=== PATIENT | male | born 1935 | race Caucasian/White ===

== ENCOUNTER 2016-02-09 18:37 | Emergency (ER) | payer OTHER ==
[~2016-02-09] VITALS: Ht 193 cm; Wt 75.6 kg
[~2016-02-09 18:37] MED LIST: ADVIN25050; CEPH500C PO; CMD1 PO; DIGO0.122 PO; LSX20 PO; METO25TA3 PO; NASONEX
[2016-02-09 18:38] VITALS: TEMP 36.8; Ht 193 cm; Wt 75.6 kg
[2016-02-09 18:52] VITALS: O2SAT 96
[2016-02-09] MEDS ORDERED: SODIUM CHLORIDE 0.9% 1000ML 1,000 ML IV STA (18:56)
--- NOTE | 2016-02-09 19:02 | EMERGENCY ROOM VISIT NOTE ---
History Report prepared by Mariangel: Virginia Salgado Under the Supervision of: Dr. Aster Foy M.D. First contact with patient: 18:44 Chief Complaint: NEURO SYMPTOMS Stated Complaint: BRAIN SURGERY 01-12-16 History of Present Illness The patient is a 80 year old male who presents to the Emergency Room with complaints of constant neurological symptoms beginning today. The patient's states that the patient is having trouble walking and is not lucid. She reports that the patient has dementia and had a brain bleed previously. She notes that he had brain surgery 1 month ago. The states that the patient thinks that he is speaking coherently but he is not. She denies any headache and vomiting. Source of History: patient Onset: today Position: other (neuro) Timing: constant Associated Symptoms: No headache, No vomiting Note: The patient's states that the patient is having trouble walking and is not lucid. Review of Systems See HPI for pertinent positives & negatives. A total of 10 systems reviewed and were otherwise negative. Past Medical & Surgical Medical Problems: (1) Alzheimer disease (2) Atrial fibrillation (3) Emphysema Family History Patient reports no known family medical history. Social History Smoking Status: Never Smoker Marital Status: Housing Status: lives with significant other Occupation Status: retired Current/Historical Medications Scheduled Calcium/Vitamin D (Os-Salvatore 500 Plus D), 1 TAB PO DAILY Citalopram Hydrobromide (Celexa), 10 MG PO DAILY Cyanocobalamin (Vitamin B-12), 100 MCG PO DAILY Digoxin (Digitek), 0.125 MG PO DAILY Docusate Sodium (Colace), 1 CAP PO BID Donepezil HCl (Aricept), 1 TAB PO DAILY Famotidine (Pepcid), 20 MG PO DAILY Ferrous Sulfate (Ferrous Sulfate), 1 TAB PO DAILY Fluticasone Prop/Salmeterol (Advair Diskus 500/50 60 Dose), 1 PUFF INH BID Furosemide (Lasix), 20 MG PO DAILY Levetiracetam (Keppra), 500 MG PO BID Lorazepam (Ativan), 0.5-1 TAB PO HS Melatonin-Pyridoxine (Melatonin), 10 MG PO HS Memantine (Namenda), 10 MG PO BID Metoprolol Succinate (Toprol Xl), 50 MG PO BID Multivitamins/Minerals (Mvi With Minerals), 1 TAB PO DAILY Potassium/Phosphorus/Sodium (Phos-Nak Powder Concentra), 1 PKT PO DAILY Simvastatin (Zocor), 20 MG PO QPM Sodium Chloride (Sodium Chloride), 1 GM PO DAILY Tiotropium [place] (Spiriva Handihaler), 1 CAP INH DAILY [Proair], 2 PUFFS INH QID Scheduled PRN Albuterol Sulf (Proventil 0.083% 2.5MG/3ML), 2.5 MG INH QID PRN for SOB/Wheezing Allergies Coded Allergies: [place] (Verified Allergy, Severe, GI SYMPTOMS, 02/09/16) Penicillins (Verified Allergy, Intermediate, RASH, 03/14/09) Uncoded Allergies: SWEET POTATOE (Adverse Reaction, Severe, GI SYMPTOMS, 02/09/16) Physical Exam Vital Signs Date Time Temp Pulse Resp B/P Pulse Ox O2 Delivery O2 Flow Rate FiO2 02/09/16 23:23 61 18 132/85 94 Room Air 02/09/16 21:53 62 16 134/82 99 02/09/16 21:16 61 20 137/82 95 Room Air 02/09/16 19:52 63 18 119/56 93 Room Air 02/09/16 18:55 67 02/09/16 18:52 96 Room Air 02/09/16 18:38 36.8 69 18 120/73 93 Room Air Physical Exam Vital signs reviewed. General: Well-appearing, elderly, pleasant and conversant, in no significant distress. HEENT: No scleral icterus, PERRLA, neck supple. Atraumatic. Cardiovascular: Regular rate and rhythm, no extra sounds. Pulmonary: Clear to auscultation bilaterally, normal work of breathing. Abdomen: Soft, nontender, nondistended, positive bowel sounds. Musculoskeletal: Atraumatic, no peripheral edema. Neurologic: Patient awake alert and oriented x 3, full strength in all 4 extremities. Cranial nerves 2 through 12 grossly intact. Follows commands, Cerebellar exam appears to be intact, pleasantly confused to current events. Skin: Warm, dry, no rash Medical Decision & Procedures ER Provider Diagnostic Interpretation: CT results as stated below per my review and radiologist interpretation: HEAD CT NONCONTRAST Findings: Interval right craniotomy. Craniotomy flap is in good position. There are persistent bilateral subdural hematomas. On the right maximum thickness is 1.6 cm improved from 2.1 cm. On the left maximum thickness is 4 mm improved from 5 mm. Midline shift remains to the left but it has improved from the prior study is currently 9 mm. This is improved from 1.3 cm. There is slightly heterogeneous density characteristics of the right subdural hematoma consistent with normal evolution/change as well as postoperative change. Impression: 1. Interval right-sided craniotomy with partial decompression of the right subdural hematoma. 2. Significant postprocedural residual as discussed above, with midline shift improved from the prior exam as well. 3. No evidence for an acute parenchymal hemorrhagic component. Electronically signed by: Dominik Howard M.D. 02/09/2016 8:21 PM Laboratory Results 02/09/16 19:35 Red Blood Count 3.49, Mean Corpuscular Volume 96.6, Mean Corpuscular Hemoglobin 31.8, Mean Corpuscular Hemoglobin Concent 32.9, Mean Platelet Volume 9.4, Neutrophils (%) (Auto) 68.8, Lymphocytes (%) (Auto) 19.3, Monocytes (%) (Auto) 9.6, Eosinophils (%) (Auto) 1.6, Basophils (%) (Auto) 0.5, Neutrophils # (Auto) 5.89, Lymphocytes # (Auto) 1.65, Monocytes # (Auto) 0.82, Eosinophils # (Auto) 0.14, Basophils # (Auto) 0.04 02/09/16 19:35 Test 02/09/16 19:35 02/09/16 19:44 02/09/16 20:41 White Blood Count 8.56 K/uL (4.8-10.8) Red Blood Count 3.49 M/uL (4.7-6.1) Hemoglobin 11.1 g/dL (14.0-18.0) Hematocrit 33.7 % (42-52) Mean Corpuscular Volume 96.6 fL (80-100) Mean Corpuscular Hemoglobin 31.8 pg (25-34) Mean Corpuscular Hemoglobin Concent 32.9 g/dl (32-36) Platelet Count 304 K/uL (130-400) Mean Platelet Volume 9.4 fL (7.4-10.4) Neutrophils (%) (Auto) 68.8 % Lymphocytes (%) (Auto) 19.3 % Monocytes (%) (Auto) 9.6 % Eosinophils (%) (Auto) 1.6 % Basophils (%) (Auto) 0.5 % Neutrophils # (Auto) 5.89 K/uL (1.4-6.5) Lymphocytes # (Auto) 1.65 K/uL (1.2-3.4) Monocytes # (Auto) 0.82 K/uL (0.11-0.59) Eosinophils # (Auto) 0.14 K/uL (0-0.5) Basophils # (Auto) 0.04 K/uL (0-0.2) RDW Standard Deviation 50.1 fL (36.4-46.3) RDW Coefficient of Variation 14.1 % (11.5-14.5) Immature Granulocyte % (Auto) 0.2 % Immature Granulocyte # (Auto) 0.02 K/uL (0.00-0.02) Anion Gap 6.0 mmol/L (3-11) Est Creatinine Clear Calc Drug Dose 58.2 ml/min Estimated GFR () 73.6 Estimated GFR (Non- 63.5 BUN/Creatinine Ratio 15.0 (10-20) Calcium Level 9.4 mg/dl (8.5-10.1) Magnesium Level 2.4 mg/dl (1.8-2.4) Total Bilirubin 0.3 mg/dl (0.2-1) Direct Bilirubin 0.1 mg/dl (0-0.2) Aspartate Amino Transf (AST/SGOT) 9 U/L (15-37) Alanine Aminotransferase (ALT/SGPT) 17 U/L (12-78) Alkaline Phosphatase 101 U/L (45-117) Total Protein 7.1 gm/dl (6.4-8.2) Albumin 3.2 gm/dl (3.4-5.0) Bedside Troponin I 0.010 ng/ml (0-0.045) Prothrombin Time 11.4 SECONDS (9.0-12.0) Prothromb Time International Ratio 1.1 (0.9-1.1) Activated Partial Thromboplast Time 29.3 SECONDS (21.0-31.0) Partial Thromboplastin Ratio 1.1 Laboratory results per my review. Medications Administered Medications (Trade) Dose Ordered Sig/Marcos Route Start Time Stop Time Status Last Admin Dose Admin Sodium Chloride (Nss 1000ml) 1,000 ml @ 125 mls/hr Q8H STAT IV 02/09/16 18:56 02/10/16 00:08 DC 02/09/16 19:39 125 MLS/HR ECG Indication: other (AMS) Rate (beats per minute): 61 Rhythm: sinus rhythm Findings: 1st degree AV block, LBBB, no acute ischemic change, no ectopy Comparison ECG Date: 12-JAN-2016 Change: no significant change ED Course 1847: Past medical records reviewed. The patient was evaluated in room B7. A complete history and physical examination was performed. 1855: Sodium Chloride 1000 ml @ 125 mls/hr IV. 2101: I reviewed the patient's case with Dr. Granda of [place]. The the patient will be transferred and Dr. Granda will evaluate the patient for further management. 2214: The patient is not able to be transferred by flight due to the weather. Medical Decision Differential diagnosis: Etiologies such as metabolic, infection, hypoglycemia, electrolyte abnormalities , cardiac sources, intracerebral event, toxicologic, neurologic, as well as others were entertained. This patient was evaluated and appeared to be in no significant distress. IV access was obtained and laboratory work was drawn. The patient was placed on the personnel monitor. Since neurologic exam is consistent with his dementia. Review of old records indicates a recent bilateral subdural hemorrhage. Patient 's surgery was performed at [facility]. A CT scan of the head performed tonight reveals chronic subdural with midline shift. There does not appear to be acute bleeding. I discussed the case with neurosurgery, Dr. Granda at [facility]. She feels that this is likely a re-collection of fluid since the surgery. She has accepted the patient in transfer. ALS transport has been arranged, there is a delay in obtaining an ambulance however the helicopter is not flying secondary to weather. Patient's family has been informed of the delay in transfer, the patient is currently resting comfortably in bed. Consults Time Called: 2047 Consulting Physician: Dr. Granda - Marky Returned Call: 2101 I reviewed the patient's case with Dr. Granda of [place]. The the patient will be transferred and Dr. Granda will evaluate the patient for further management. Impression Primary Impression: Chronic subdural hematoma Additional Impressions: Midline shift of brain, Altered mental status Scribe Attestation The scribe's documentation has been prepared under my direction and personally reviewed by me in its entirety. I confirm that the note above accurately reflects all work, treatment, procedures, and medical decision making performed by me. Departure Information Dispostion Transfer Acute Care Facility Referrals Serena Soni M.D. (PCP) Patient Instructions A Signature Page, My [facility]
[2016-02-09] MEDS ORDERED: DONE5TAB9 PO (19:07)
[2016-02-09] MEDS ORDERED: FAMO20TA11 PO (19:07)
[2016-02-09] MEDS ORDERED: ACET325T96 PO (19:07)
[2016-02-09] MEDS ORDERED: CITA10TA8 PO (19:07)
[2016-02-09] MEDS ORDERED: LORA-741 PO (19:07)
[2016-02-09] MEDS ORDERED: NMN10 PO (19:07)
[2016-02-09] MEDS ORDERED: [UNRECOGNIZED DRUG - CODE] INJ (19:07)
[2016-02-09] MEDS ORDERED: DIGO30TA PO (19:07)
[2016-02-09] MEDS ORDERED: NTRP PO (19:07)
[2016-02-09] MEDS ORDERED: PROAIR INH (19:07)
[2016-02-09] MEDS ORDERED: SDMC1 PO (19:07)
[2016-02-09] MEDS ORDERED: LEVE500T13 PO (19:07)
[2016-02-09] MEDS ORDERED: FURO-85 PO (19:07)
[2016-02-09] MEDS ORDERED: ADVIN50/60 INH (19:07)
[2016-02-09] MEDS ORDERED: SPRIN/30 INH (19:07)
[2016-02-09] MEDS ORDERED: DOCU-94 PO (19:07)
[2016-02-09] MEDS ORDERED: ALBINS/ INH (19:07)
[2016-02-09] MEDS ORDERED: CYAN100T PO (19:12)
[2016-02-09] MEDS ORDERED: METO-217 PO (19:12)
[2016-02-09] MEDS ORDERED: CALC500C70 PO (19:12)
[2016-02-09] MEDS ORDERED: FERR325T5 PO (19:12)
[2016-02-09] MEDS ORDERED: SIMV20TA2 PO (19:12)
[2016-02-09] MEDS ORDERED: MULT-513 PO (19:12)
[2016-02-09] MEDS ORDERED: MELA3TAB12 PO (19:35)
[2016-02-09 19:54] LABS: BASO % 0.5 %; BASO ABS # 0.04 K/uL (0-0.2); COMPLETE YES; EOS % 1.6 %; HEMATOCRIT 33.7 % (42-52); IG% 0.2 %; LYMPH % 19.3 %; LYMPH ABS # 1.65 K/uL (1.2-3.4); MEAN CELL VOLUME 96.6 fL (80-100); MEAN CORPUSCULAR HEMOGLOBIN 31.8 pg (25-34); MEAN CORPUSCULAR HGB CONC 32.9 g/dl (32-36); MEAN PLATELET VOLUME 9.4 fL (7.4-10.4); MONO % 9.6 %; NEUT % 68.8 %; PLATELET COUNT 304 K/uL (130-400); RED BLOOD COUNT 3.49 M/uL (4.7-6.1); WHITE BLOOD COUNT 8.56 K/uL (4.8-10.8)
[2016-02-09 20:12] LABS: CALCIUM 9.4 mg/dl (8.5-10.1); CREATININE 1.1 mg/dl (0.60-1.40); MAGNESIUM 2.4 mg/dl (1.8-2.4); POTASSIUM 4.4 mmol/L (3.5-5.1)
--- NOTE | 2016-02-09 20:23 | DIAGNOSTIC IMAGING REPORT ---
HEAD CT NONCONTRAST CT DOSE: 786.26 mGy.cm HISTORY: Change in mental status AMS, recent ICH s/p decompression TECHNIQUE: Multiaxial CT images of the head were performed without the use of intravenous contrast. Comparison: 01/12/2016 Findings: Interval right craniotomy. Craniotomy flap is in good position. There are persistent bilateral subdural hematomas. On the right maximum thickness is 1.6 cm improved from 2.1 cm. On the left maximum thickness is 4 mm improved from 5 mm. Midline shift remains to the left but it has improved from the prior study is currently 9 mm. This is improved from 1.3 cm. There is slightly heterogeneous density characteristics of the right subdural hematoma consistent with normal evolution/change as well as postoperative change. Impression: 1. Interval right-sided craniotomy with partial decompression of the right subdural hematoma. 2. Significant postprocedural residual as discussed above, with midline shift improved from the prior exam as well. 3. No evidence for an acute parenchymal hemorrhagic component. Electronically signed by: Dominik Howard M.D. 02/09/2016 8:21 PM
[2016-02-09 21:10] LABS: INR 1.1 (0.9-1.1); PARTIAL THROMBOPLASTIN RATIO 1.1; PROTHROMBIN TIME (PATIENT) 11.4 SECONDS (9.0-12.0)
[2016-02-09 23:23] VITALS: BP 132/85; PULSE 61; O2SAT 94
== END 2016-02-09 23:51 | disposition short-term general hospital (02) ==
LOC: C.EDB 18:37
DX: I62.03 Nontraumatic chronic subdural hemorrhage (principal); G30.9 Alzheimer's disease, unspecified; I48.91 Unspecified atrial fibrillation; Z79.899 Other long term (current) drug therapy

== ENCOUNTER 2016-06-07 13:11 | Emergency (ER) | payer OTHER ==
[~2016-06-07] VITALS: Ht 193 cm; Wt 70.0 kg
[~2016-06-07 13:11] MED LIST changes: -ADVIN25050; +ADVIN50/60 INH; +ALBINS/ INH; +CALC500C70 PO; -CEPH500C PO; +CITA10TA8 PO; -CMD1 PO; +CYAN100T PO; -DIGO0.122 PO; +DIGO30TA PO; +DOCU-94 PO; +DONE5TAB9 PO; +FAMO20TA11 PO; +FERR325T5 PO; +FURO-85 PO; +LEVE500T13 PO; +LORA-741 PO; -LSX20 PO; +MELA3TAB12 PO; +METO-217 PO; -METO25TA3 PO; +MULT-513 PO; -NASONEX; +NMN10 PO; +NTRP PO; +PROAIR INH; +SDMC1 PO; +SIMV20TA2 PO; +SPRIN/30 INH
[2016-06-07 13:18] VITALS: TEMP 36.5; Ht 193 cm; Wt 70.0 kg
[2016-06-07] MEDS ORDERED: SODIUM CHLORIDE 0.9% 1000ML 1,000 ML IV STA (13:26)
--- NOTE | 2016-06-07 13:58 | DIAGNOSTIC IMAGING REPORT ---
CHEST ONE VIEW PORTABLE CLINICAL HISTORY: Altered mental status. Weakness. COMPARISON STUDY: 01/12/2016 FINDINGS: The chest has an emphysematous configuration. There is no focal pulmonary consolidation. There is a trace right pleural effusion. There is no failure.[ There are old rib deformities. IMPRESSION: Emphysema. Trace right pleural effusion. Electronically signed by: Ziggy Giron M.D. 06/07/2016 1:57 PM Dictated Date/Time: 06/07/2016 1:56 PM
[2016-06-07 14:03] LABS: BASO % 0.6 %; BASO ABS # 0.04 K/uL (0-0.2); COMPLETE YES; EOS % 3.1 %; HEMATOCRIT 45.6 % (42-52); IG% 0.2 %; LYMPH ABS # 1.43 K/uL (1.2-3.4); MEAN CORPUSCULAR HEMOGLOBIN 30.1 pg (25-34); MEAN PLATELET VOLUME 9.7 fL (7.4-10.4); MONO % 10.6 %; NEUT % 63.5 %; PLATELET COUNT 212 K/uL (130-400); RED BLOOD COUNT 4.85 M/uL (4.7-6.1); WHITE BLOOD COUNT 6.49 K/uL (4.8-10.8)
[2016-06-07 14:18] LABS: PROTHROMBIN TIME (PATIENT) 10.9 SECONDS (9.0-12.0)
--- NOTE | 2016-06-07 14:22 | DIAGNOSTIC IMAGING REPORT ---
CT HEAD WITHOUT CONTRAST (CT) CLINICAL HISTORY: Mental status change. Head trauma. Dizziness. History of prior brain surgery. COMPARISON STUDY: February 09, 2016 TECHNIQUE: Axial CT of the brain is performed from the vertex to the skull base. IV contrast was not administered for this examination. CT DOSE: 788.63 mGycm FINDINGS: There is been interval decrease in the size of the bilateral subdural fluid collections. These currently measure 5 mm in thickness and the right and 7 mm in thickness on the left. No acute hemorrhage is visualized. There is no CT evidence of acute cortical infarction. There is no midline shift. There are patchy white matter hypodensities likely on a small vessel basis. 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 There is subtle cortical hypodensities in the right frontal lobe, also likely secondary to an infarct. This was not visualized the prior study. There is no evidence of pathologic ventricular dilatation. There is trace fluid in the right mastoid. There are postsurgical changes of a right frontal craniotomy. IMPRESSION: 1. Postsurgical changes are prior right frontal craniotomy 2. Significant interval decrease in the size the bilateral subdural fluid collections 3. Subtle cortical hypodensities in the right frontal lobe, likely secondary to an interval infarct 4. No acute hemorrhage. No significant mass effect. Electronically signed by: Ziggy Giron M.D. 06/07/2016 2:21 PM Dictated Date/Time: 06/07/2016 2:17 PM
[2016-06-07 14:27] LABS: ALT/SGPT 19 U/L (12-78); AST/SGOT 12 U/L (15-37); BLOOD UREA NITROGEN 29 mg/dl (7-18); BUN/CREATININE RATIO 15.1 (10-20); CARBON DIOXIDE 32 mmol/L (21-32); CHLORIDE 105 mmol/L (98-107); GLUCOSE 105 mg/dl (70-99); MAGNESIUM 2.4 mg/dl (1.8-2.4); POTASSIUM 4.1 mmol/L (3.5-5.1); SODIUM 143 mmol/L (136-145)
[2016-06-07 14:32] VITALS: O2SAT 98
[2016-06-07 14:36] LABS: ALKALINE PHOSPHATASE 76 U/L (45-117); CKMB/CK RATIO 0.7 (0-3.0); THYROID STIMULATING HORMONE 0.581 uIu/ml (0.300-4.500)
[2016-06-07] MEDS ORDERED: LISI20TA3 PO (14:43)
[2016-06-07] MEDS ORDERED: DONE10TA12 PO (14:43)
[2016-06-07] MEDS ORDERED: LEVE750T PO (14:43)
[2016-06-07] MEDS ORDERED: ALBU18002 INH (14:43)
[2016-06-07] MEDS ORDERED: ASCA500 PO (14:44)
[2016-06-07] MEDS ORDERED: VITA1TAB12 PO (14:44)
[2016-06-07] MEDS ORDERED: CHOL100010 PO (14:44)
--- NOTE | 2016-06-07 14:50 | EMERGENCY ROOM VISIT NOTE ---
History Report prepared by Mariangel: Miguelito Zafar Under the Supervision of: Dr. Guillermo Ruth D.O. First contact with patient: 13:22 Chief Complaint: SHORTNESS OF BREATH Stated Complaint: SOB, FALL, DIZZINESS, HX OF BRAIN BLEED, BRAIN SX History of Present Illness The patient is a 80 year old male who presents to the Emergency Room with complaints of persistent shortness of breath starting about 48 hours ago. He has worsening difficulty breathing with exertion. He has a history of COPD. He has been having an upper respiratory infection for the past 3 days. He has been taking Augmentin with some relief. The patient fell outside on his way to the Emergency Room due to dizziness. The patient had an unwitnessed fall two days ago. He had a brain bleed last year after a fall. He has had a loss of appetite in the past month. His weight has reduced from 190 pounds to 153 pounds. He has been taking Ensure. The patient does not currently smoke cigarettes. He currently denies any pain. He denies headache, chest pain, nausea, vomiting, abdominal pain, or any other complaints. The patient has a history of Alzheimer's disease. Additional history is obtained as per . Source of History: patient, spouse/significant other Onset: about 48 hours ago Position: other (global) Symptom Intensity: No pain currently Quality: other (shortness of breath) Timing: other (persistent) Associated Symptoms: No abdominal pain, No chest pain, No headache, No nausea, No vomiting Review of Systems See HPI for pertinent positives & negatives. A total of 10 systems reviewed and were otherwise negative. Past Medical & Surgical Medical Problems: (1) Alzheimer disease (2) Atrial fibrillation (3) Emphysema Family History Patient reports no known family medical history. Social History Smoking Status: Former Smoker Marital Status: Housing Status: lives with significant other Occupation Status: retired Current/Historical Medications Scheduled Albuterol Sulfate (Proair Respiclick), 2 PUFFS INH QID Ascorbic Acid (Vitamin C), 1 TAB PO DAILY Calcium/Vitamin D (Os-Salvatore 500 Plus D), 1 TAB PO DAILY Cholecalciferol (Vitamin D), 1 TAB PO DAILY Citalopram Hydrobromide (Celexa), 10 MG PO DAILY Cyanocobalamin (Vitamin B-12), 100 MCG PO DAILY Digoxin (Digitek), 0.125 MG PO DAILY Donepezil Hydrochloride (Aricept), 10 MG PO DAILY Ferrous Sulfate (Ferrous Sulfate), 1 TAB PO DAILY Furosemide (Lasix), 20 MG PO DAILY Levetiracetam (Keppra), 750 MG PO DAILY Lisinopril (Prinivil), 40 MG PO DAILY Memantine (Namenda), 10 MG PO BID Metoprolol Succinate (Toprol Xl), 50 MG PO BID Multivitamins/Minerals (Mvi With Minerals), 1 TAB PO DAILY Potassium/Phosphorus/Sodium (Phos-Nak Powder Concentra), 1 PKT PO DAILY Simvastatin (Zocor), 20 MG PO QPM Tiotropium [place] (Spiriva Handihaler), 1 CAP INH DAILY Vitamin E (Vitamin E), 1 TAB PO DAILY [Proair], 2 PUFFS INH QID Allergies Coded Allergies: [place] (Verified Allergy, Severe, GI SYMPTOMS, 02/09/16) Penicillins (Verified Allergy, Intermediate, RASH, 03/14/09) Uncoded Allergies: SWEET POTATOE (Adverse Reaction, Severe, GI SYMPTOMS, 02/09/16) Physical Exam Vital Signs Date Time Temp Pulse Resp B/P Pulse Ox O2 Delivery O2 Flow Rate FiO2 06/07/16 15:09 57 16 102/57 97 06/07/16 15:07 78 16 132/98 99 06/07/16 14:32 98 Nasal Cannula 2.0 06/07/16 14:30 62 16 80/51 98 Nasal Cannula 2.0 06/07/16 13:42 98 Room Air 06/07/16 13:32 77 06/07/16 13:18 36.5 80 18 70/50 91 Room Air Physical Exam CONSTITUTIONAL/VITAL SIGNS: Reviewed / noted above. GENERAL: Non-toxic in appearance. INTEGUMENTARY: Warm, dry, and [place]. There are some old abrasions on the face. HEAD: Normocephalic. EYES: without scleral icterus or trauma. ENT/OROPHARYNX: clear and moist. LYMPHADENOPATHY/NECK: Is supple without lymphadenopathy or meningismus. RESPIRATORY: Lungs clear and equal. CARDIOVASCULAR: Regular rate and rhythm. GI/ABDOMEN: Soft and nontender. No organomegaly or pulsatile mass. No rebound or guarding. Normal bowel sounds. EXTREMITIES: Warm and well perfused. BACK: No CVA tenderness. NEUROLOGICAL: Intact without focal deficits. PSYCHIATRIC: normal affect. MUSCULOSKELETAL: Normally developed with good muscle tone. Medical Decision & Procedures ER Provider Diagnostic Interpretation: X ray results and stated below per my interpretation and radiology interpretation. CHEST ONE VIEW PORTABLE CLINICAL HISTORY: Altered mental status. Weakness. COMPARISON STUDY: 01/12/2016 FINDINGS: The chest has an emphysematous configuration. There is no focal pulmonary consolidation. There is a trace right pleural effusion. There is no failure.[ There are old rib deformities. IMPRESSION: Emphysema. Trace right pleural effusion. Electronically signed by: Ziggy Giron M.D. 06/07/2016 1:57 PM Dictated Date/Time: 06/07/2016 1:[address] results as stated below per my review and radiologist interpretation: CT HEAD WITHOUT CONTRAST (CT) CLINICAL HISTORY: Mental status change. Head trauma. Dizziness. History of prior brain surgery. COMPARISON STUDY: February 09, 2016 TECHNIQUE: Axial CT of the brain is performed from the vertex to the skull base. IV contrast was not administered for this examination. CT DOSE: 788.63 mGycm FINDINGS: There is been interval decrease in the size of the bilateral subdural fluid collections. These currently measure 5 mm in thickness and the right and 7 mm in thickness on the left. No acute hemorrhage is visualized. There is no CT evidence of acute cortical infarction. There is no midline shift. There are patchy white matter hypodensities likely on a small vessel basis. 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 There is subtle cortical hypodensities in the right frontal lobe, also likely secondary to an infarct. This was not visualized the prior study. There is no evidence of pathologic ventricular dilatation. There is trace fluid in the right mastoid. There are postsurgical changes of a right frontal craniotomy. IMPRESSION: 1. Postsurgical changes are prior right frontal craniotomy 2. Significant interval decrease in the size the bilateral subdural fluid collections 3. Subtle cortical hypodensities in the right frontal lobe, likely secondary to an interval infarct 4. No acute hemorrhage. No significant mass effect. Electronically signed by: Ziggy Giron M.D. 06/07/2016 2:21 PM Dictated Date/Time: 06/07/2016 2:17 PM Laboratory Results 06/07/16 13:50 Red Blood Count 4.85, Mean Corpuscular Volume 94.0, Mean Corpuscular Hemoglobin 30.1, Mean Corpuscular Hemoglobin Concent 32.0, Mean Platelet Volume 9.7, Neutrophils (%) (Auto) 63.5, Lymphocytes (%) (Auto) 22.0, Monocytes (%) (Auto) 10.6, Eosinophils (%) (Auto) 3.1, Basophils (%) (Auto) 0.6, Neutrophils # (Auto ) 4.12, Lymphocytes # (Auto) 1.43, Monocytes # (Auto) 0.69, Eosinophils # (Auto ) 0.20, Basophils # (Auto) 0.04 06/07/16 13:50 Test 06/07/16 13:50 06/07/16 14:00 White Blood Count 6.49 K/uL (4.8-10.8) Red Blood Count 4.85 M/uL (4.7-6.1) Hemoglobin 14.6 g/dL (14.0-18.0) Hematocrit 45.6 % (42-52) Mean Corpuscular Volume 94.0 fL (80-100) Mean Corpuscular Hemoglobin 30.1 pg (25-34) Mean Corpuscular Hemoglobin Concent 32.0 g/dl (32-36) Platelet Count 212 K/uL (130-400) Mean Platelet Volume 9.7 fL (7.4-10.4) Neutrophils (%) (Auto) 63.5 % Lymphocytes (%) (Auto) 22.0 % Monocytes (%) (Auto) 10.6 % Eosinophils (%) (Auto) 3.1 % Basophils (%) (Auto) 0.6 % Neutrophils # (Auto) 4.12 K/uL (1.4-6.5) Lymphocytes # (Auto) 1.43 K/uL (1.2-3.4) Monocytes # (Auto) 0.69 K/uL (0.11-0.59) Eosinophils # (Auto) 0.20 K/uL (0-0.5) Basophils # (Auto) 0.04 K/uL (0-0.2) RDW Standard Deviation 50.2 fL (36.4-46.3) RDW Coefficient of Variation 14.7 % (11.5-14.5) Immature Granulocyte % (Auto) 0.2 % Immature Granulocyte # (Auto) 0.01 K/uL (0.00-0.02) Prothrombin Time 10.9 SECONDS (9.0-12.0) Prothromb Time International Ratio 1.0 (0.9-1.1) Activated Partial Thromboplast Time 26.9 SECONDS (21.0-31.0) Partial Thromboplastin Ratio 1.0 Anion Gap 6.0 mmol/L (3-11) Est Creatinine Clear Calc Drug Dose 31.2 ml/min Estimated GFR () 38.0 Estimated GFR (Non- 32.8 BUN/Creatinine Ratio 15.1 (10-20) Calcium Level 10.0 mg/dl (8.5-10.1) Magnesium Level 2.4 mg/dl (1.8-2.4) Total Bilirubin 0.6 mg/dl (0.2-1) Direct Bilirubin 0.2 mg/dl (0-0.2) Aspartate Amino Transf (AST/SGOT) 12 U/L (15-37) Alanine Aminotransferase (ALT/SGPT) 19 U/L (12-78) Alkaline Phosphatase 76 U/L (45-117) Total Creatine Kinase 83 U/L (39-308) Creatine Kinase MB 0.6 ng/ml (0.5-3.6) Creatine Kinase MB Ratio 0.7 (0-3.0) Troponin I < 0.015 ng/ml (0-0.045) Total Protein 7.3 gm/dl (6.4-8.2) Albumin 3.7 gm/dl (3.4-5.0) Lipase 108 U/L (73-393) Thyroid Stimulating Hormone (TSH) 0.581 uIu/ml (0.300-4.500) Laboratory results as stated above per my review. Medications Administered Medications (Trade) Dose Ordered Sig/Marcos Route Start Time Stop Time Status Last Admin Dose Admin Sodium Chloride (Nss 1000ml) 1,000 ml @ 999 mls/hr Q1H1M STAT IV 06/07/16 13:26 06/07/16 14:26 DC 06/07/16 14:03 999 MLS/HR ECG Indication: SOB/dyspnea Rate (beats per minute): 64 Rhythm: atrial flutter Findings: LBBB, no acute ischemic change, no ectopy Comparison ECG Date: February 09, 2016 Change: Atrial flutter is new and left bundle branch block is old when compared to February 09, 2016. ED Course 1322: Previous medical records were reviewed. The patient was evaluated in room B07. A complete history and physical examination was performed. 1326: Sodium Chloride 1000 ml @ 999 mls/hr IV 1453: On reevaluation, the patient is resting comfortably. I discussed the results and findings with the patient and his family. They verbalized agreement of the treatment plan. The patient was discharged home. Medical Decision the differential was considered includes acute myocardial infarction, acute coronary syndrome, myocarditis, pericarditis, pericardial effusions /tamponad, esophageal perforation, pulmonary embolism, pneumonia, pneumothorax, cardiomyopathy, congestive heart, anemia , COPD/asthma exacerbation. This is a 80-year-old male who presents to the ED with a chief complaint of generalized weakness and a fall this morning. The patient is also had some ongoing weight loss due to decrease in appetite. The patient fell several days ago striking his face on the ground. He has abrasions on his face. The reports a history of intracranial bleed when he was on Coumadin. She was concerned about this. The patient has no specific complaints. He denies any chest pains, shortness of breath or fevers. His physical exam was relatively unremarkable. His blood pressure was initially 70/50. Saturations are 91% on room air. The patient has a twelve-lead EKG that reveals atrial flutter with a variable conduction a controlled ventricular rate. The patient does have a history of intermittent atrial fibrillation. He is currently not on anticoagulation due to previous intrarenal hemorrhage. CT scan of the brain did not show any acute process. Chest x-ray was negative for acute disease. CBC is normal. BUN is 29 and creatinine is 1.9. Stitches normal. Metabolic panel was normal. Troponin is negative. Patient was treated with 1 L normal saline IV. He remains asymptomatic. The patient's blood pressure did improve. The states that his blood pressure normally runs about 100-115 systolic. Last blood pressure was 102 systolic. The patient and his would like to go home. They were discharged, per her wishes. The will try to increase the patients daily fluid intake and nutrition. Impression Primary Impression: Dehydration Additional Impressions: Acute renal insufficiency Poor nutrition Scribe Attestation The scribe's documentation has been prepared under my direction and personally reviewed by me in its entirety. I confirm that the note above accurately reflects all work, treatment, procedures, and medical decision making performed by me. Departure Information Dispostion Home / Self-Care Referrals Serena Soni M.D. (PCP) Forms HOME CARE DOCUMENTATION FORM, IMPORTANT VISIT INFORMATION Patient Instructions My [facility] Additional Instructions Increase daily fluid intake and nutrition. Use boost or ensure for additional supplementation for meals. Follow-up with your doctor in 1-2 days. Return for any concerns or worsening. Problem Qualifiers
[2016-06-07 15:02] LABS: URINE APPEARANCE CLOUDY (CLEAR); URINE COLOR DK YELLOW; URINE EPITHELIAL CELL AUTO >30 /lpf (0-5); URINE NITRITE NEG (NEG); URINE SPECIFIC GRAVITY 1.022 (1.000-1.030); UROBILINOGEN NEG (NEG); ZZUR CULT IF INDIC CLEAN CATCH NO
[2016-06-07 15:09] VITALS: BP 102/57; PULSE 57; O2SAT 97
[2016-06-07 15:17] LABS: MANUAL MICROSCOPIC REQUIRED? NO; REVIEW REQ? YES; URINE BILIRUBIN NEG (NEG)
== END 2016-06-07 15:20 | disposition home or self-care (01) ==
LOC: C.EDB 13:13
DX: E86.0 Dehydration (principal); N28.9 Disorder of kidney and ureter, unspecified; E46 Unspecified protein-calorie malnutrition; I48.91 Unspecified atrial fibrillation; G30.9 Alzheimer's disease, unspecified; J43.9 Emphysema, unspecified; Z79.899 Other long term (current) drug therapy; Z88.0 Allergy status to penicillin; Z91.018 Allergy to other foods

== ENCOUNTER → 2016-07-09 | Outpatient (CLI) | payer OTHER ==
[~2016-07-09] MED LIST changes: -ADVIN50/60 INH; +ALBU18002 INH; +ASCA500 PO; +ASPCH81X PO; +CHOL100010 PO; -DOCU-94 PO; +DONE10TA12 PO; -DONE5TAB9 PO; -FAMO20TA11 PO; -LEVE500T13 PO; +LEVE750T PO; +LISI20TA3 PO; -MELA3TAB12 PO; +MIRT15TA2 PO; -SDMC1 PO; +TRAZ50TA35 PO; +VITA1TAB12 PO
--- NOTE | 2016-07-10 14:00 | DIAGNOSTIC IMAGING REPORT ---
CT ABD/PELVIS ORAL CONT ONLY CLINICAL HISTORY: Weight loss, fatigue and weakness. TECHNIQUE: Axial images of the abdomen and pelvis were obtained without IV contrast. Oral contrast was administered. COMPARISON STUDY: PET/CT November 01, 2007. FINDINGS: The chest will be reported separately. There is mild elevation of the right hemidiaphragm. Evaluation of the abdomen and pelvis is suboptimal on this unenhanced exam. Unenhanced images of the liver, spleen, adrenal glands, kidneys and pancreas are unremarkable. No gallstones within the gallbladder. There is no peripancreatic or pericholecystic infiltration. There is no abdominal or pelvic lymphadenopathy. There is colonic diverticulosis without evidence for acute diverticulitis. Mild bladder wall thickening is accentuated by underdistention. No suspicious skeletal lesions are identified. There is extensive atherosclerotic plaque of the abdominal aorta and the bilateral iliac arteries. IMPRESSION: 1. No acute process within the abdomen or pelvis on unenhanced exam. 2. No abdominal or pelvic lymphadenopathy. 3. Cholelithiasis. 4. Colonic diverticulosis without evidence for acute diverticulitis. Electronically signed by: Joon Rollins M.D. 07/10/2016 1:59 PM Dictated Date/Time: 07/09/2016 3:24 PM
--- NOTE | 2016-07-10 14:00 | DIAGNOSTIC IMAGING REPORT ---
CT OF THE CHEST WITHOUT IV CONTRAST CLINICAL HISTORY: Weight loss, weakness and fatigue. COMPARISON STUDY: Chest radiograph June 07, 2016 and PET/CT November 01, 2007. CT DOSE: 544.81 mGy.cm TECHNIQUE: Axial images of the chest were obtained without IV contrast. Images were reviewed in the axial, sagittal, and coronal planes. IV contrast was not administered for this examination. FINDINGS: No enlarged axillary, mediastinal or hilar lymph nodes are present. The size of the heart is mildly enlarged. This extensive coronary artery calcification. Central airways are patent. Severe emphysema is noted. There is a 2 cm x 1 cm irregular subpleural opacity within the left upper lobe shown on image 61 of 376. This was not evident on PET/CT of November 01, 2007. Additional biapical opacities suggest scarring. There is a 1.6 x 0.9 cm right lower lobe irregular opacity shown on image 239. This was present on prior PET. There is no consolidation to suggest pneumonia. Bony thorax is unremarkable. Abdomen and pelvis will be reported separately. IMPRESSION: 1. Severe emphysema. 2. 2.1 x 1 cm irregular subpleural opacity within the left upper lobe. Scarring is favored although malignancy could appear similar. A PET CT may be of benefit in further characterization. Alternatively, a follow-up chest CT could be obtained in 6 months. 3. Additional subpleural opacities favor scarring. 4. No thoracic lymphadenopathy. Electronically signed by: Joon Rollins M.D. 07/10/2016 1:59 PM Dictated Date/Time: 07/09/2016 2:54 PM
== END | disposition home or self-care (01) ==
LOC: C.CTS 13:35
PROVIDERS: ATTEND Internal Medicine
DX: R63.4 Abnormal weight loss (principal); J43.9 Emphysema, unspecified; R91.8 Other nonspecific abnormal finding of lung field; K57.90 Diverticulosis of intestine, part unspecified, without perforation or abscess without bleeding; E23.7 Disorder of pituitary gland, unspecified; R53.83 Other fatigue; R53.1 Weakness; K80.20 Calculus of gallbladder without cholecystitis without obstruction

== ENCOUNTER → 2016-08-02 | Outpatient (CLI) | payer OTHER ==
--- NOTE | 2016-08-03 10:05 | DIAGNOSTIC IMAGING REPORT ---
PET/CT CLINICAL HISTORY: Solitary pulmonary nodule. TECHNIQUE: A PET/CT was performed from the skull base through the upper thighs following intravenous injection of 14.39 mCi of F 18 FDG IV. The injection was performed at 10:26 AM on August 02, 2016 and imaging began at 11:23 AM on August 02, 2016. Unenhanced CT was performed for attenuation correction purposes and anatomic localization. COMPARISON STUDY: CT of the chest, abdomen and pelvis July 09, 2016. FINDINGS: Head and neck: No suspicious FDG uptake is identified within the neck. There is no cervical lymphadenopathy. Chest: Moderate to severe emphysema is noted with upper lobe predominance. The 2 cm irregular linear density within the posterior segment of the left upper lobe is similar to CT of July 09, 2016. This was not evident on PET/CT of April 02, 2007. This demonstrates minimal FDG uptake within SUV max of 1.5. Additional nodular biapical opacities favor scarring. There is no thoracic lymphadenopathy. No additional sites of abnormal FDG uptake are identified within the chest. Abdomen and Pelvis: No suspicious uptake within the abdomen or pelvis is noted. There is no abdominal or pelvic lymphadenopathy. This client diverticulosis without evidence for acute diverticulitis. There is extensive atherosclerotic plaque. There is a gallstone within the gallbladder. Musculoskeletal: No suspicious skeletal uptake is identified. There are several old, healing right rib fractures. IMPRESSION: 1. Mild FDG uptake within the 2 cm irregular density within the apicoposterior segment of the left upper lobe. This finding is similar to CT of July 09, 2016. This remains indeterminate and may reflect a neoplasm such as adenocarcinoma or scarring. 2. No thoracic lymphadenopathy. 3. Moderate to severe emphysema. Electronically signed by: Joon Rollins M.D. 08/03/2016 10:03 AM Dictated Date/Time: 08/02/2016 12:42 PM
== END | disposition home or self-care (01) ==
LOC: C.PET 09:49
PROVIDERS: ATTEND Surgery
DX: R91.1 Solitary pulmonary nodule (principal)

== ENCOUNTER 2016-12-01 02:55 | Observation (INO) | payer OTHER ==
[~2016-12-01] VITALS: Ht 193 cm; Wt 76.8 kg
[~2016-12-01 02:55] MED LIST changes: -ALBINS/ INH; -ASPCH81X PO; -LORA-741 PO; -MIRT15TA2 PO; -TRAZ50TA35 PO
[2016-12-01] MEDS ORDERED: LORA-741 PO (04:10)
[2016-12-01] MEDS ORDERED: ASPCH81X PO (04:12)
[2016-12-01] MEDS ORDERED: MIRT15TA2 PO (04:12)
[2016-12-01] MEDS ORDERED: ALBINS/ INH (04:12)
[2016-12-01] MEDS ORDERED: TRAZ50TA35 PO (04:12)
[2016-12-01 04:16] LABS: HEMATOCRIT 40.8 % (42-52); MEAN CELL VOLUME 93.6 fL (80-100); MEAN CORPUSCULAR HEMOGLOBIN 30.7 pg (25-34); MEAN CORPUSCULAR HGB CONC 32.8 g/dl (32-36); MEAN PLATELET VOLUME 9.9 fL (7.4-10.4); PLATELET COUNT 169 K/uL (130-400); RED BLOOD COUNT 4.36 M/uL (4.7-6.1); WHITE BLOOD COUNT 11.46 K/uL (4.8-10.8)
[2016-12-01 04:41] LABS: ALT/SGPT 14 U/L (12-78); AST/SGOT 9 U/L (15-37); BLOOD UREA NITROGEN 13 mg/dl (7-18); BUN/CREATININE RATIO 10.4 (10-20); CALCIUM 8.9 mg/dl (8.5-10.1); CARBON DIOXIDE 30 mmol/L (21-32); CHLORIDE 106 mmol/L (98-107); CREATININE 1.28 mg/dl (0.60-1.40); GLUCOSE 99 mg/dl (70-99); POTASSIUM 4.2 mmol/L (3.5-5.1); SODIUM 141 mmol/L (136-145)
[2016-12-01 04:43] LABS: ACETAMINOPHEN < 2 ug/ml (10-30)
[2016-12-01 04:46] LABS: ALKALINE PHOSPHATASE 75 U/L (45-117); CKMB/CK RATIO 1.7 (0-3.0)
[2016-12-01 04:47] LABS: URINE APPEARANCE CLEAR (CLEAR); URINE BILIRUBIN NEG (NEG); URINE COLOR YELLOW; URINE NITRITE NEG (NEG); URINE SPECIFIC GRAVITY 1.013 (1.000-1.030); UROBILINOGEN NEG (NEG)
[2016-12-01 04:51] LABS: MANUAL MICROSCOPIC REQUIRED? NO; REVIEW REQ? NO
[2016-12-01 05:07] LABS: BENZODIAZEPINE, URINE NEG (NEG); COCAINE,URINE NEG (NEG); PHENCYCLIDINE, URINE NEG (NEG)
[2016-12-01 05:35] LABS: PARTIAL THROMBOPLASTIN RATIO 1.2
[2016-12-01 05:51] LABS: MAGNESIUM 2.3 mg/dl (1.8-2.4); THYROID STIMULATING HORMONE 0.484 uIu/ml (0.300-4.500)
[2016-12-01] MEDS ORDERED: ACETAMINOPHEN 325 MG TAB PO PRN (06:00)
[2016-12-01] MEDS ORDERED: ONDANSETRON INJ 2 MG/ML 2 ML VIAL IV PRN (06:00)
[2016-12-01] MEDS ORDERED: PHARMACIST DISCHARGE MED REC CONSULT PRN (06:00)
[2016-12-01] MEDS ORDERED: OXYCODONE/ACETAMINOPHEN 5-325 TAB PO PRN (06:00)
[2016-12-01] MEDS ORDERED: NITROGLYCERIN 0.4 MG SL PER TAB CHARGE SL PRN (06:00)
[2016-12-01] MEDS ORDERED: IV FLUIDS COMPLETED PRN (06:15)
--- NOTE | 2016-12-01 06:29 | DIAGNOSTIC IMAGING REPORT ---
HEAD WITHOUT CONTRAST (CT) CT DOSE: 921.40 mGy.cm HISTORY: Mental status change eval for bleed TECHNIQUE: Multiaxial CT images of the head were performed without the use of intravenous contrast. A dose lowering technique was utilized adhering to the principles of ALARA. Comparison: 06/07/2016 Findings: The paranasal sinuses and mastoid air cells are clear. Findings of a right cerebral craniotomy are again noted. Craniotomy flap is aligned anatomically. There is no evidence for acute intracranial hemorrhage. There is a residual linear focus of dural calcification lateral right frontal lobe unchanged in the prior exam. Components of chronic small vessel change as well as a posttraumatic encephalomalacia are stable. Impression: Chronic and postoperative change. No acute process. The above report was generated using voice recognition software. It may contain grammatical, syntax or spelling errors. Electronically signed by: Dominik Howard M.D. 12/01/2016 6:28 AM Dictated Date/Time: 12/01/2016 6:26 AM
[2016-12-01 06:39] VITALS: BP 115/76; PULSE 85; TEMP 36.6; O2SAT 97; Ht 193 cm; Wt 76.8 kg
--- NOTE | 2016-12-01 07:02 | DIAGNOSTIC IMAGING REPORT ---
SINGLE VIEW CHEST CLINICAL HISTORY: Dyspnea. Change in mental status FINDINGS: 2 AP, portable, upright chest radiographs are compared to study dated 06/07/2016 and correlated with chest CT dated 07/09/2016. The heart is enlarged and there is atherosclerotic calcification of the thoracic aorta. Emphysema and chronic interstitial thickening are similar to previous. No airspace consolidation, large pleural effusion, or pneumothorax is seen. The skeletal structures are osteopenic. There are healed right-sided rib fractures. IMPRESSION: Cardiomegaly and emphysema with no acute cardiopulmonary abnormality. Electronically signed by: Alex Ordaz M.D. 12/01/2016 7:01 AM Dictated Date/Time: 12/01/2016 7:00 AM
--- NOTE | 2016-12-01 07:12 | HISTORY & PHYSICAL EXAMINATION ---
DATE OF ADMISSION: 12/01/2016 PRIMARY CARE PHYSICIAN: Dr. Soni. CHIEF COMPLAINT: Disorientation, unsteady gait as per . HISTORY OF PRESENT ILLNESS: History obtained from patient's and records. Limited history from patient secondary to dementia and hearing impairment. Medical history significant for recurrent subdural hematoma status post surgery, chronic diastolic heart failure, EF of 59%, severe aortic stenosis, hypertension, chronic left bundle branch block, AFib off anticoagulation because of fall risk and subdural hematoma, dementia, past tobacco abuse. Recent confinement at [facility] February 2016 for recurrent subdural hematoma status post surgery. Yesterday, patient noted by to be unstable, unsteady gait. Px has to hold on to the mendoza for support, little more disoriented than usual. At a restaurant that he usually goes to, the patient could not find his way around Which is unusual as per . Patient fell down secondary to instability. No syncope, no chest pain, no unusual shortness of breath. Usual cough symptoms. As per , the patient having visual hallucinations, seeing people in the house when it was just 2 of them. Patient brought to the Emergency Room by . Currently mentation improved as per patient's . Aspirin, recently started this week. MEDICAL HISTORY: As above. A 2D echo from November 2016 showed severely calcified aortic valve, EF 59%, mild MR, mild TR. He was told that he was not a surgical candidate. SURGERIES: He has had craniotomy, nerve surgery, tonsillectomy, wrist surgery. HOME MEDICATIONS: Include Proventil, aspirin, ProAir, vitamin C, Os-Salvatore, vitamin D, vitamin B12, Aricept, Digitek ferrous sulfate, Ativan, Carol Ann, vitamin E, Remeron, multivitamins, potassium, Zocor, Spiriva, trazodone. ALLERGIES: PENICILLIN, POTATO, WALNUT. FAMILY HISTORY: There is a family history of breast cancer. PERSONAL AND SOCIAL HISTORY: Past tobacco abuse ; occasional alcoholic beverage intake. Lives with . REVIEW OF SYSTEMS: Could not be reliably obtained. PHYSICAL EXAMINATION: VITAL SIGNS: Blood pressure was noted to be 105/70, pulse rate 97, RR 22, temperature 36.8, sats 96% on room air. GENERAL: Noted to be hard of hearing. No respiratory distress. SKIN: Pallor, warm. HEENT: Pale palpebral conjuctivae. No ptosis. Dry buccal mucosa. Partial alopecia. NECK: No JVD. Supple. No tenderness. CHEST: Decreased effort. No tenderness. HEART: Irregular, systolic murmur. ABDOMEN: Soft, nontender. EXTREMITIES: Minimal LE edema, no tenderness. No gross deformities. NEUROLOGIC: Coherent, hard of hearing. Gait and stance not assessed. LABORATORY DATA: Hemoglobin was noted to be 13.4, hematocrit 40, white cells 11.6, platelets 169. Sodium 141, potassium 4.2, chloride 106, CO2 30, BUN 13, creatinine 0.8, glucose was noted to be 99. trop 0 CT of the head initial read showed a small area of extraaxial collection over the left frontal lobe which appears near isodense to cortex, possible areas of dural thickening adjacent to the craniectomy site again noted. Chronic changes, right frontal encephalomalacia. EKG as per my interpretation, AFib. Chronic Left bundle branch block. ASSESSMENT: 1. Transient forgetfulness, disorientation, gait instability, hallucinations TIA vs seizures home sedatives may be contributory. 2. History of recurrent subdural hematoma status post surgery 3. atrial fibrillation rate controlled not on anticoagulation secondary to subdural hematoma 4. hypertension, stable 5. chronic left bundle branch block 6. chronic diastolic heart failure, px euvolemic 7. Chronic SOB on exertion Attributed by specialists to aortic stenosis, possible COPD as per patient 8. past tobacco abuse 9. anemia. PLAN: Observation PCU, neuro checks MRI/MRA of the brain Neurology RE gait instability, neurologic symptoms (Patient known to [facility].) Hold home sedatives. Anemia workup. PT, OT eval. DVT prophylaxis, SCDs RE hx subdural hematoma. DNR as per /POA, Nara Monterroso. She requests updates from providers at [phone]. [facility]
[2016-12-01] MEDS ORDERED: INFLUENZA VACCINE HIGH DOSE 65+ 0.5 ML SYR IM. ONE (07:30)
[2016-12-01] MEDS ORDERED: INFLUENZA ADMINISTRATION CHARGE ONE (07:30)
[2016-12-01] MEDS: SODIUM CHLORIDE 0.45% 1000ML 1,000 ML IV ONE ×2 (07:58→09:39)
[2016-12-01 08:00] VITALS: O2SAT 97
--- NOTE | 2016-12-01 08:43 | EMERGENCY ROOM VISIT NOTE ---
History Report prepared by Mariangel: Halie Naylor Under the Supervision of: Dr. Rhoda Pleitez D.O. First contact with patient: 03:01 Chief Complaint: ALTERED MENTAL STATUS Stated Complaint: AMS Nursing Triage Summary: pt arrives ALS from home. per report. pt was out to dinner at the [facility] with his last night. returned home at 2100. pt was unsteady on his feet and wobbling with walking and had slurred speech. pt managed to get himself upstairs and to his bed. pt was SOB so put him on 2L NC oxygen and pt went to sleep. woke to pt stumbling and crashing noises in bathroom, and found pt to be falling into things and talking to people that weren't there. pt hx of subdural bleed about 1 year ago and had 2 craniotomy surgeries for. per EMS, unsteady gait and SOB not unusual for pt. hallucinations, talking to unknown people are unusual History of Present Illness The patient is an 81 year old male who presents to the Emergency Room with complaints of an episode of an altered mental status starting 16 hours ago. The patient's states that the patient usually walks well, but she noticed that he started walking differently. She states that he now stumbles. She reports that they went to the [facility] for dinner tonight and had one beer. She states that when they got home, he fell into the position going up their back steps. She denies him hitting his head. The notes that the last time he was like this he had a cerebral hemorrhage. She states that he had two surgeries last December. She notes that he had a follow up CT done two weeks ago that was found to be normal. She notes he has been short of breath with movement, but this is baseline. Source of History: spouse/significant other Onset: 16 hours ago Position: other (global) Quality: other (global) Timing: other (episode) Modifying Factors (Worsening): movement Associated Symptoms: + SOB Note: The notes that the patient has been stumbling while walking. The denies the patient hitting his head when he fell. Review of Systems See HPI for pertinent positives & negatives. A total of 10 systems reviewed and were otherwise negative. Past Medical & Surgical Medical Problems: (1) Alzheimer disease (2) Atrial fibrillation (3) Cerebral hemorrhage (4) Emphysema (5) Encephalopathy Family History Patient reports no known family medical history. Social History Smoking Status: Former Smoker Alcohol Use: occasionally Marital Status: Housing Status: lives with significant other Occupation Status: retired Current/Historical Medications Scheduled Albuterol Sulfate (Proair Respiclick), 2 PUFFS INH QID Ascorbic Acid (Vitamin C), 1 TAB PO DAILY Aspirin (Aspirin Chewable), 81 MG PO DAILY Calcium/Vitamin D (Os-Salvatore 500 Plus D), 1 TAB PO DAILY Cholecalciferol (Vitamin D), 1 TAB PO DAILY Cyanocobalamin (Vitamin B-12), 100 MCG PO DAILY Digoxin (Digitek), 0.125 MG PO DAILY Donepezil Hydrochloride (Aricept), 10 MG PO DAILY Ferrous Sulfate (Ferrous Sulfate), 1 TAB PO DAILY Memantine (Namenda), 10 MG PO BID Mirtazapine Soltab (Remeron Soltab), 15 MG PO DAILY Multivitamins/Minerals (Mvi With Minerals), 1 TAB PO DAILY Potassium/Phosphorus/Sodium (Phos-Nak Powder Concentra), 1 PKT PO DAILY Simvastatin (Zocor), 20 MG PO QPM Tiotropium [employer] (Spiriva Handihaler), 1 CAP INH DAILY Trazodone Hcl (Trazodone), 50 MG PO HS Vitamin E (Vitamin E), 1 TAB PO DAILY Scheduled PRN Albuterol Sulf (Proventil 0.083% 2.5MG/3ML), 2.5 MG INH Q4 PRN for SOB/Wheezing Lorazepam (Ativan), 0.5 MG PO DAILY PRN for Anxiety Allergies Coded Allergies: [place] (Verified Allergy, Severe, GI SYMPTOMS, 12/01/16) Penicillins (Verified Allergy, Intermediate, RASH, 12/01/16) Potato (Verified Allergy, Unknown, GI SYMPTOMS, 12/01/16) Physical Exam Vital Signs Date Time Temp Pulse Resp B/P (MAP) Pulse Ox O2 Delivery O2 Flow Rate FiO2 12/01/16 04:32 87 18 121/89 96 Nasal Cannula 2.0 12/01/16 04:25 95 16 116/63 97 Nasal Cannula 2.0 12/01/16 03:55 92 26 108/71 95 Nasal Cannula 2.0 12/01/16 03:31 92 25 112/87 94 Nasal Cannula 2.0 12/01/16 03:03 92 Nasal Cannula 2.0 12/01/16 03:03 99 12/01/16 03:01 36.8 97 22 106/70 90 Room Air 12/01/16 03:01 90 Room Air Physical Exam General: Seems confused. HEENT: Head - normocephalic and atraumatic. Pupils are equal, round, and reactive to light. Extraocular eye muscles are intact and sclera are anicteric. Ears - bilaterally patent canals with noninjected tympanic membranes and no evidence of hemotympanum. Nose - moist nasal mucosa without discharge. Mouth - moist buccal mucosa. Oropharynx is nonerythematous and there is no tonsillar exudate or edema noted. Neck: Supple; no JVD, nuchal rigidity, cervical lymphadenopathy, or auscultated bruits. Heart: Irregularly irregular. There is a normal S1 and S2 with no murmurs, clicks, or gallops appreciated. Lungs: Clear to auscultation bilaterally with no wheezes, rales, or rhonchi. Abdomen: Soft, completely nontender, nondistended, with good bowel sounds. There are no palpable pulsatile masses or hepatosplenomegaly. There is no guarding, rigidity, or rebound noted. Extremities: No evidence of cyanosis, clubbing, or edema. There are easily palpable peripheral pulses. Neuro:The patient is awake and alert, oriented to person and place, but not time. Muscle strength is 5/5 in all 4 extremities. The patient has equal veneer patcher strength and equal pedal push and pull. There are no cerebellar signs. Medical Decision & Procedures ER Provider Diagnostic Interpretation: Radiology results as stated below per my review and the radiologist's interpretation: CT HEAD: Comparison 06/07/[address] evidence of acute infarct or mass effect. Ventricles are within limits and midline. There is now only a very small area of extra-axial collection over the left frontal lobe which appears near isodense to cortex measuring around 2 mm for example axial 16. Possible area of subdural thickening subjacent to the craniotomy site again noted. Chronic and involutional changes including right frontal encephalomalacia. Radiologist: Hoang Gonzalez M.D. Study ready at 03:50 and initial results transmitted at 04:47. Laboratory Results 12/01/16 04:06 12/01/16 04:06 Test 12/01/16 04:06 12/01/16 04:32 Red Blood Count 4.36 M/uL (4.7-6.1) Mean Corpuscular Volume 93.6 fL (80-100) Mean Corpuscular Hemoglobin 30.7 pg (25-34) Mean Corpuscular Hemoglobin Concent 32.8 g/dl (32-36) RDW Standard Deviation 49.6 fL (36.4-46.3) RDW Coefficient of Variation 14.4 % (11.5-14.5) Mean Platelet Volume 9.9 fL (7.4-10.4) Activated Partial Thromboplast Time 30.6 SECONDS (21.0-31.0) Partial Thromboplastin Ratio 1.2 Anion Gap 5.0 mmol/L (3-11) Est Creatinine Clear Calc Drug Dose 50.1 ml/min Estimated GFR () 60.9 Estimated GFR (Non- 52.5 BUN/Creatinine Ratio 10.4 (10-20) Calcium Level 8.9 mg/dl (8.5-10.1) Magnesium Level 2.3 mg/dl (1.8-2.4) Total Bilirubin 1.3 mg/dl (0.2-1) Direct Bilirubin 0.4 mg/dl (0-0.2) Aspartate Amino Transf (AST/SGOT) 9 U/L (15-37) Alanine Aminotransferase (ALT/SGPT) 14 U/L (12-78) Alkaline Phosphatase 75 U/L (45-117) Total Creatine Kinase 48 U/L (39-308) Creatine Kinase MB 0.8 ng/ml (0.5-3.6) Creatine Kinase MB Ratio 1.7 (0-3.0) Troponin I < 0.015 ng/ml (0-0.045) Pro-B-Type Natriuretic Peptide 871 pg/ml (0-1800) Total Protein 6.6 gm/dl (6.4-8.2) Albumin 3.4 gm/dl (3.4-5.0) Thyroid Stimulating Hormone (TSH) 0.484 uIu/ml (0.300-4.500) Digoxin Level 0.5 ng/ml (0.8-2.0) Salicylates Level < 1.7 mg/dl (2.8-20) Acetaminophen Level < 2 ug/ml (10-30) Ethyl Alcohol mg/dL < 3.0 mg/dl (0-3) Urine Color YELLOW Urine Appearance CLEAR (CLEAR) Urine pH 5.0 (4.5-7.5) Urine Specific [place] 1.013 (1.000-1.030) Urine Protein NEG (NEG) Urine Glucose (UA) NEG (NEG) Urine Ketones NEG (NEG) Urine Occult Blood NEG (NEG) Urine Nitrite NEG (NEG) Urine Bilirubin NEG (NEG) Urine Urobilinogen NEG (NEG) Urine Leukocyte Esterase NEG (NEG) Urine Opiates Screen NEG (NEG) Urine Methadone, Qualitative NEG (NEG) Urine Barbiturates NEG (NEG) Urine Phencyclidine (PCP) Level NEG (NEG) Ur Amphetamine/Methamphetamine NEG (NEG) MDMA (Ecstasy) Screen POS (NEG) Urine Benzodiazepines Screen NEG (NEG) Urine Cocaine Metabolite NEG (NEG) Urine Marijuana (THC) NEG (NEG) Laboratory results per my review. ECG Indication: altered mental status Rate (beats per minute): 93 Rhythm: atrial fibrillation Findings: LBBB, no ectopy ED Course 0328: Past medical records reviewed. The patient was evaluated in room A12B. A complete history and physical exam was performed. He twelve-lead EKG was obtained as described above. The patient went for a stat CT scan of the brain which was unremarkable. 0449: I reevaluated the patient and he is doing well. The patient's states that he has a history of Alzheimer's disease, but that she normally can understand everything he is saying. She states that she can only understand 20% of what he is saying now. She also describes that his gait is significantly abnormal in comparison to his usual. 0455: Discussed the patient's case with Dr. Aguiar. The patient will be evaluated for further management. Medical Decision This is an 81-year-old male patient who presents to the emergency department with an altered mental status. Differential diagnoses include intracranial hemorrhage, UTI, CVA, TIA. LABS: Urinalysis was normal Urine tox screen negative Normal renal function Normal glucose Total Bilirubin 1.3 Direct bili 0.4 AST 9 ALT 14 White blood cell count 11.4 Stable H&H The patient has a history of chronic subdural hematomas. CT scan of brain shows no new bleeding and almost complete resolution of the previous subdurals. The patient's mental status does seem to be altered. He has some disorientation and confusion and gait instability. He has no focal neurological findings to suggest an acute stroke. In fact, the patient's describes some unsteady gait as early as 11 AM yesterday morning. I discussed the case with the hospitalist and they will evaluate for further management. Medication Reconcilliation Current Medication List: was personally reviewed by me Blood Pressure Screening Patient's blood pressure: Normal blood pressure Blood pressure disposition: Did not require urgent referral Consults Time Called: [phone] Consulting Physician: Dr. Aguiar Returned Call: 045 Discussed the patient's case with Dr. Aguiar. The patient will be evaluated for further management. Impression Primary Impression: Altered mental status Scribe Attestation The scribe's documentation has been prepared under my direction and personally reviewed by me in its entirety. I confirm that the note above accurately reflects all work, treatment, procedures, and medical decision making performed by me. Departure Information Dispostion Being Evaluated By Hospitalist Referrals Serena Soni M.D. (PCP) Patient Instructions My [facility] Problem Qualifiers Primary Impression: Altered mental status Altered mental status type: unspecified Qualified Codes: R41.82 - Altered mental status, unspecified
[2016-12-01] MEDS: TIOTROPIUM BROMIDE 5 PUFF/90 MCG INH INH SCH (09:41)
[2016-12-01] MEDS: CEROVITE ADV FORMULA TAB PO SCH (09:42)
[2016-12-01] MEDS: DONEPEZIL HCL 10 MG TAB PO SCH (09:42)
[2016-12-01] MEDS: CYANOCOBALAMIN 100 MCG TAB (VIT B-12) PO SCH (09:42)
[2016-12-01] MEDS: MEMANTINE 10 MG TAB PO SCH ×2 (09:42→20:20)
[2016-12-01] MEDS: ASPIRIN 81 MG ECTAB PO SCH (09:42)
[2016-12-01] MEDS: FERROUS SULFATE 325 MG TAB PO SCH (09:42)
--- NOTE | 2016-12-01 12:10 | DIAGNOSTIC IMAGING REPORT ---
MRI OF THE BRAIN WITHOUT CONTRAST CLINICAL HISTORY: Gait abnormality. History of traumatic cerebellar hemorrhage. History of surgery. COMPARISON STUDY: Noncontrast head CT dated 12/01/2016 FINDINGS: Sagittal T1, axial diffusion, proton density and T2 weighted axial, coronal FLAIR, and axial T1-weighted images were acquired. No intra or extra-axial mass lesions are visualized Axial diffusion-weighted images reveal no evidence of acute or subacute infarction. There is no evidence of ventricular dilatation. Proton density T2-weighted and FLAIR images reveal scattered foci of increased T2 signal within the white matter, likely on a small vessel basis. There is right frontal encephalomalacia. There is dural thickening most pronounced on the right. There are postsurgical changes of a right frontal craniotomy. There are few scattered lacunar infarcts present. There are no abnormal flow voids. IMPRESSION: 1. No acute intracranial findings 2. Postsurgical changes of a right frontal craniotomy with mild subjacent dural thickening. There is also right frontal encephalomalacia 3. No evidence of acute or subacute infarction 4. Scattered foci of increased T2 and FLAIR signal within the white matter likely on a small vessel basis. Scattered tiny lacunar infarcts. Electronically signed by: Ziggy Giron M.D. 12/01/2016 12:09 PM Dictated Date/Time: 12/01/2016 12:04 PM
--- NOTE | 2016-12-01 12:15 | DIAGNOSTIC IMAGING REPORT ---
MR ANGIOGRAM OF THE BRAIN CLINICAL HISTORY: Gait abnormality. COMPARISON STUDY: MRI of the brain performed concurrently on 12/01/2016. TECHNIQUE: 3-D [id number] MR angiography of the intracranial circulation is performed. 3-D tumble views are created and assessed. IV contrast was not administered for this examination. FINDINGS: The internal carotid arteries are widely patent bilaterally, as are the anterior and middle cerebral arteries. The vertebrobasilar system and posterior cerebral arteries are widely patent. The left vertebral artery is dominant. There is no aneurysm, high-grade stenosis, or focal vessel cutoff seen throughout the intracranial circulation. IMPRESSION: Unremarkable MR angiogram of the brain. Electronically signed by: Alex Ordaz M.D. 12/01/2016 12:13 PM Dictated Date/Time: 12/01/2016 12:10 PM
[2016-12-01 13:15] LABS: FERRITIN 169.6 ng/ml (8.0-388.0)
--- NOTE | 2016-12-01 13:29 | ELECTROENCEPHALOGRAPH REPORT ---
CLINICAL DIAGNOSIS: Confusion of uncertain origin. ELECTROENCEPHALOGRAM DIAGNOSIS: Mildly diffusely abnormal EEG during wakefulness. DESCRIPTION OF TRACING: This EEG was done as a bedside recording. Unfortunately, video analysis of patient movement and behavior was not recorded on the computerized record. Photic stimulation was performed. No hyperventilation was done and drowsiness and light sleep were not seen. Under these conditions, there is evidence for a background rhythm in the lower alpha and theta range ranging from 7-9 Hz of maximum frequency and of up to 30 microvolts of maximum amplitude. Polymorphic mid to lower frequency, modest amplitude, theta activity intermixed with acute waveforms in the delta range is seen over all head regions without clear focal or regional predominance. Anterior head region maximum bilaterally symmetrical low voltage fast activity in the beta range is present. Photic stimulation provoked some minimal driving response without a photomyogenic or photoparoxysmal component. At no time during the waking tracing is there evidence for a clearcut potentially epileptogenic activity in the form of polyspike or spike wave bursts, focal sharp waves or focal spikes. INTERPRETATION: This EEG reveals evidence for mild generalized nonspecific abnormalities consistent with a mild nonfocal, generalized encephalopathy without potentially epileptogenic features.
--- NOTE | 2016-12-01 13:43 | Progress Note ---
Internal Med Progress Note Date of Service: Dec 01, 2016. Provider Documentation: SUBJECTIVE: Seen and examined at bedside States feeling well today Family at bedside Mental status back to baseline Denies any Chest pain, SOB, dizziness, nausea, vomiting, abd pain, weakness, numbness OBJECTIVE: Vital Signs-as noted below Physical Exam: General Appearance:Moderately built and nourished, no apparent distress Head: normocephalic, Atraumatic Eyes: normal inspection, EOMI, PERRL Neck: supple, Trachea midline Respiratory/Chest: Normal breath sounds, CTA Cardiovascular: Irregularly irregular, + murmur Abdomen/GI:Soft, Non tender, Bowel sounds present Extremities/Musculoskelatal:normal inspection, no edema Neurologic/Psych:AAOX3, grossly no focal neurological deficits Skin: normal color, warm Lab data as noted below. ASSESSMENT & PLAN: Transient forgetfulness, disorientation, gait instability, hallucinations: Possible TIA MRI/MRA brain: No acute pathology Continue Aspirin, Statins Hold home sedatives for now Neuro checks Await for Neurology Input check lipid panel H/O recurrent subdural hematoma S/P surgery MRI/MRA brain: no acute issues monitor Atrial fibrillation: rate controlled Not on anticoagulation secondary to subdural hematoma Continue home meds Hypertension: stable Chronic left bundle branch block H/O chronic diastolic heart failure H/O Aortic Stenosis Patient euvolemic No acute issues DVT px: SCDs RE hx subdural hematoma. Code Status: DNR as per /POA, Ms. Nara Monterroso. She requests updates from providers at [phone]. Vital Signs: Date Time Temp Pulse Resp B/P (MAP) Pulse Ox O2 Delivery O2 Flow Rate FiO2 12/01/16 08:00 97 Room Air 12/01/16 06:39 36.6 85 18 115/76 97 Room Air 12/01/16 06:09 83 25 117/82 95 12/01/16 05:30 87 25 107/68 95 Nasal Cannula 2.0 12/01/16 04:32 87 18 121/89 96 Nasal Cannula 2.0 12/01/16 04:25 95 16 116/63 97 Nasal Cannula 2.0 12/01/16 03:55 92 26 108/71 95 Nasal Cannula 2.0 12/01/16 03:31 92 25 112/87 94 Nasal Cannula 2.0 12/01/16 03:03 92 Nasal Cannula 2.0 12/01/16 03:03 99 12/01/16 03:01 36.8 97 22 106/70 90 Room Air 12/01/16 03:01 90 Room Air Lab Results: Results Past 24 Hours Test 12/01/16 04:06 12/01/16 04:32 12/01/16 12:30 Range/Units White Blood Count 11.46 4.8-10.8 K/uL Red Blood Count 4.36 4.7-6.1 M/uL Hemoglobin 13.4 14.0-18.0 g/dL Hematocrit 40.8 42-52 % Mean Corpuscular Volume 93.6 80-100 fL Mean Corpuscular Hemoglobin 30.7 25-34 pg Mean Corpuscular Hemoglobin Concent 32.8 32-36 g/dl RDW Standard Deviation 49.6 36.4-46.3 fL RDW Coefficient of Variation 14.4 11.5-14.5 % Platelet Count 169 130-400 K/uL Mean Platelet Volume 9.9 7.4-10.4 fL Activated Partial Thromboplast Time 30.6 21.0-31.0 SECONDS Partial Thromboplastin Ratio 1.2 Sodium Level 141 136-145 mmol/L Potassium Level 4.2 3.5-5.1 mmol/L Chloride Level 106 98-107 mmol/L Carbon Dioxide Level 30 21-32 mmol/L Anion Gap 5.0 3-11 mmol/L Blood Urea Nitrogen 13 7-18 mg/dl Creatinine 1.28 0.60-1.40 mg/dl Est Creatinine Clear Calc Drug Dose 50.1 ml/min Estimated GFR () 60.9 Estimated GFR (Non- 52.5 BUN/Creatinine Ratio 10.4 10-20 Random Glucose 99 70-99 mg/dl Calcium Level 8.9 8.5-10.1 mg/dl Magnesium Level 2.3 1.8-2.4 mg/dl Total Bilirubin 1.3 0.2-1 mg/dl Direct Bilirubin 0.4 0-0.2 mg/dl Aspartate Amino Transf (AST/SGOT) 9 15-37 U/L Alanine Aminotransferase (ALT/SGPT) 14 12-78 U/L Alkaline Phosphatase 75 45-117 U/L Total Creatine Kinase 48 39-308 U/L Creatine Kinase MB 0.8 0.5-3.6 ng/ml Creatine Kinase MB Ratio 1.7 0-3.0 Troponin I < 0.015 0-0.045 ng/ml Pro-B-Type Natriuretic Peptide 871 0-1800 pg/ml Total Protein 6.6 6.4-8.2 gm/dl Albumin 3.4 3.4-5.0 gm/dl Thyroid Stimulating Hormone (TSH) 0.484 0.300-4.500 uIu/ml Digoxin Level 0.5 0.8-2.0 ng/ml Salicylates Level < 1.7 2.8-20 mg/dl Acetaminophen Level < 2 10-30 ug/ml Ethyl Alcohol mg/dL < 3.0 0-3 mg/dl Urine Color YELLOW Urine Appearance CLEAR CLEAR Urine pH 5.0 4.5-7.5 Urine Specific [place] 1.013 1.000-1.030 Urine Protein NEG NEG Urine Glucose (UA) NEG NEG Urine Ketones NEG NEG Urine Occult Blood NEG NEG Urine Nitrite NEG NEG Urine Bilirubin NEG NEG Urine Urobilinogen NEG NEG Urine Leukocyte Esterase NEG NEG Urine Opiates Screen NEG NEG Urine Methadone, Qualitative NEG NEG Urine Barbiturates NEG NEG Urine Phencyclidine (PCP) Level NEG NEG Ur Amphetamine/Methamphetamine NEG NEG MDMA (Ecstasy) Screen POS NEG Urine Benzodiazepines Screen NEG NEG Urine Cocaine Metabolite NEG NEG Urine Marijuana (THC) NEG NEG Absolute Reticulocyte Count 0.06 0.02-0.10 10^6/uL Percent Reticulocyte Count 1.2 0.5-2.0 % Iron Level 61 35-175 mcg/dl Total Iron Binding Capacity 338 250-450 mcg/dl Transferrin 227 200-360 mg/dl Transferrin % Saturation 19 20-50 % Ferritin 169.6 8.0-388.0 ng/ml
[2016-12-01 15:00] VITALS: BP 119/77; PULSE 79; TEMP 36.5; O2SAT 95
--- NOTE | 2016-12-01 15:35 | Neurology Consultation ---
Neurology Consultation Date of Consultation: Dec 01, 2016. Attending Physician: Wilfrid Zelaya MD Primary Care Physician: Serena Soni M.D. Reason for Consultation: forgetfulness gait abnormality History of Present Illness Source: patient, family Hoang is a 81 year old male with a PMH: recurrent subdural hematoma, status post surgery, chronic diastolic heart failure, EF of 59%, severe aortic stenosis , hypertension, chronic left bundle branch block, AFib off anticoagulation because of fall risk and subdural hematoma, dementia, past tobacco abuse. He was hospitalized at [facility] January to February 2016 for recurrent subdural hematoma status post surgery. He was more unstable and confused than usual. He was [place] [employer] getting a sandwich according to son in room, he could not find his way home. The patient fell down secondary to instability. He was brought to the ER by . Aspirin, recently started this week. He is having visual hallucinations, seeing people in the house when it was just 2 of them was report by his . His son is in the room and states he was back to baseline about an hour ago but currently is very tired and more confused. This has been happening since he was at [place] with the SDH. If he doesn't get sleep he is off both walking and cognitively. denies CP, SOB, abdominal pain, one sided weakness, numbness tingling. he is joking to avoid answering questions he can't answer Past Medical/Surgical History Medical Problems: (1) Acute renal insufficiency Status: Acute (2) Altered mental status Status: Acute (3) Altered mental status Status: Acute (4) Anticoagulated with warfarin Status: Acute (5) Bilateral subdural hematomas Status: Acute (6) Chronic subdural hematoma Status: Acute (7) Dehydration Status: Acute (8) Midline shift of brain Status: Acute (9) Poor nutrition Status: Acute Social History Smoking Status: Former smoker Smokeless Tobacco Use: No Alcohol Use: none Drug Use: none Marital Status: Housing Status: lives with significant other Occupation Status: retired Allergies Coded Allergies: Mentone (Verified Allergy, Severe, GI SYMPTOMS, 12/01/16) Penicillins (Verified Allergy, Intermediate, RASH, 12/01/16) Potato (Verified Allergy, Unknown, GI SYMPTOMS, 12/01/16) Current Inpatient Medications Current Inpatient Medications Medications (Trade) Dose Ordered Sig/Marcos Route Start Time Stop Time Status Last Admin Dose Admin Acetaminophen (Tylenol Tab) 650 mg Q4H PRN PO 12/01/16 06:00 12/31/16 05:59 Nitroglycerin (Nitrostat Tab) 0.4 mg UD PRN SL 12/01/16 06:00 12/31/16 05:59 Miscellaneous Information (Pharmacist Discharge Med Rec Consult) 1 ea UD PRN N/A 12/01/16 06:00 12/31/16 05:59 Oxycodone/ Acetaminophen (Percocet 5-325mg Tab) 1 tab Q6H PRN PO 12/01/16 06:00 12/15/16 05:59 Ondansetron HCl (Zofran Inj) 4 mg Q6H PRN IV 12/01/16 06:00 12/31/16 05:59 Sodium Chloride 1,000 ml @ 60 mls/hr [id number] ONCE IV 12/01/16 06:45 12/01/16 23:24 12/01/16 09:39 60 MLS/HR Aspirin (Ecotrin Tab) 81 mg QAM PO 12/01/16 09:00 12/31/16 08:59 12/01/16 09:42 81 MG Cyanocobalamin (Vitamin B-12 Tab) 100 mcg DAILY PO 12/01/16 09:00 12/31/16 08:59 12/01/16 09:42 100 MCG Digoxin (Lanoxin Tab) 0.125 mg DAILY@1600 PO 12/01/16 16:00 12/31/16 15:59 Donepezil HCl (Aricept Tab) 10 mg DAILY PO 12/01/16 09:00 12/31/16 08:59 12/01/16 09:42 10 MG Ferrous Sulfate (Feosol Tab) 325 mg DAILY PO 12/01/16 09:00 12/31/16 08:59 12/01/16 09:42 325 MG Memantine (Namenda Tab) 10 mg BID PO 12/01/16 09:00 12/31/16 08:59 12/01/16 09:42 10 MG Multivitamins/ Minerals (Multivitamin W/ Minerals Tab) 1 tab DAILY PO 12/01/16 09:00 12/31/16 08:59 12/01/16 09:42 1 TAB Simvastatin (Zocor Tab) 20 mg QPM PO 12/01/16 21:00 12/31/16 20:59 Tiotropium [place] (Spiriva Handihaler Inhaler) 1 puff DAILY INH 12/01/16 09:00 12/31/16 08:59 12/01/16 09:41 1 PUFF Miscellaneous (Iv Fluids Completed) 1 ea PRN PRN N/A 12/01/16 06:15 12/01/17 06:14 Physical Exam Vital Signs (Past 24 Hrs): Date Time Temp Pulse Resp B/P (MAP) Pulse Ox O2 Delivery O2 Flow Rate FiO2 12/01/16 12:00 Room Air 12/01/16 08:00 97 Room Air 12/01/16 06:39 36.6 85 18 115/76 97 Room Air 12/01/16 06:09 83 25 117/82 95 12/01/16 05:30 87 25 107/68 95 Nasal Cannula 2.0 12/01/16 04:32 87 18 121/89 96 Nasal Cannula 2.0 12/01/16 04:25 95 16 116/63 97 Nasal Cannula 2.0 12/01/16 03:55 92 26 108/71 95 Nasal Cannula 2.0 12/01/16 03:31 92 25 112/87 94 Nasal Cannula 2.0 12/01/16 03:03 92 Nasal Cannula 2.0 12/01/16 03:03 99 12/01/16 03:01 36.8 97 22 106/70 90 Room Air 12/01/16 03:01 90 Room Air Physical Exam: Constitutional: appearance nourished, healthy Ears, Nose, Mouth and Throat: mucous membranes moist, no injection and skin normal, eyes normal Cardiovascular: normal S-1 and S-2 and regular rate and rhythm Respiratory: clear to auscultation (CTA) and no rales, rhonchi or wheeze Musculoskeletal: no peripheral edema and good distal pulses Skin: no stigmata of neurocutaneous disease noted and normal and intact Eyes: extraocular muscles intact (EOMI) and pupils equal, round and reactive to light (PERRL) NEUROLOGIC EXAMINATION: Mental status: Alert and interactive unable to identify son by name bedside, able to identify pen and write with it and says it goes "click click click" does not know location, does not know why he is here Oriented to person Speech fluent with no evidence of aphasia Cranial Nerves smile eye brow raise symmetric, tongue midline Reflexes: Deep tendon reflexes were symmetrical and graded 2/5. Plantar responses were flexor. Sensory: light touch or vibration Coordination: finger to nose slight bi pass on left but joking around during exam, no resting tremor, no cogwheeling Gait/Stance: Posture normal. lying in bed Strength: biceps triceps hand technical sales consultant 5/5 bilaterally, hip flex plantar flex ext 5/5 bilaterally Laboratory Results Past 24 Hours: 12/01/16 04:06 12/01/16 04:06 Test 12/01/16 04:06 12/01/16 04:32 12/01/16 12:30 12/01/16 14:13 Red Blood Count 4.36 M/uL (4.7-6.1) Mean Corpuscular Volume 93.6 fL (80-100) Mean Corpuscular Hemoglobin 30.7 pg (25-34) Mean Corpuscular Hemoglobin Concent 32.8 g/dl (32-36) RDW Standard Deviation 49.6 fL (36.4-46.3) RDW Coefficient of Variation 14.4 % (11.5-14.5) Mean Platelet Volume 9.9 fL (7.4-10.4) Activated Partial Thromboplast Time 30.6 SECONDS (21.0-31.0) Partial Thromboplastin Ratio 1.2 Anion Gap 5.0 mmol/L (3-11) Est Creatinine Clear Calc Drug Dose 50.1 ml/min Estimated GFR () 60.9 Estimated GFR (Non- 52.5 BUN/Creatinine Ratio 10.4 (10-20) Calcium Level 8.9 mg/dl (8.5-10.1) Magnesium Level 2.3 mg/dl (1.8-2.4) Total Bilirubin 1.3 mg/dl (0.2-1) Direct Bilirubin 0.4 mg/dl (0-0.2) Aspartate Amino Transf (AST/SGOT) 9 U/L (15-37) Alanine Aminotransferase (ALT/SGPT) 14 U/L (12-78) Alkaline Phosphatase 75 U/L (45-117) Total Creatine Kinase 48 U/L (39-308) Creatine Kinase MB 0.8 ng/ml (0.5-3.6) Creatine Kinase MB Ratio 1.7 (0-3.0) Troponin I < 0.015 ng/ml (0-0.045) Pro-B-Type Natriuretic Peptide 871 pg/ml (0-1800) Total Protein 6.6 gm/dl (6.4-8.2) Albumin 3.4 gm/dl (3.4-5.0) Thyroid Stimulating Hormone (TSH) 0.484 uIu/ml (0.300-4.500) Digoxin Level 0.5 ng/ml (0.8-2.0) Salicylates Level < 1.7 mg/dl (2.8-20) Acetaminophen Level < 2 ug/ml (10-30) Ethyl Alcohol mg/dL < 3.0 mg/dl (0-3) Urine Color YELLOW Urine Appearance CLEAR (CLEAR) Urine pH 5.0 (4.5-7.5) Urine Specific [place] 1.013 (1.000-1.030) Urine Protein NEG (NEG) Urine Glucose (UA) NEG (NEG) Urine Ketones NEG (NEG) Urine Occult Blood NEG (NEG) Urine Nitrite NEG (NEG) Urine Bilirubin NEG (NEG) Urine Urobilinogen NEG (NEG) Urine Leukocyte Esterase NEG (NEG) Urine Opiates Screen NEG (NEG) Urine Methadone, Qualitative NEG (NEG) Urine Barbiturates NEG (NEG) Urine Phencyclidine (PCP) Level NEG (NEG) Ur Amphetamine/Methamphetamine NEG (NEG) MDMA (Ecstasy) Screen POS (NEG) Urine Benzodiazepines Screen NEG (NEG) Urine Cocaine Metabolite NEG (NEG) Urine Marijuana (THC) NEG (NEG) Absolute Reticulocyte Count 0.06 10^6/uL (0.02-0.10) Percent Reticulocyte Count 1.2 % (0.5-2.0) Iron Level 61 mcg/dl (35-175) Total Iron Binding Capacity 338 mcg/dl (250-450) Transferrin 227 mg/dl (200-360) Transferrin % Saturation 19 % (20-50) Ferritin 169.6 ng/ml (8.0-388.0) Imaging CT head- Chronic and postoperative change. No acute process. MRI without brain- No acute intracranial findings Postsurgical changes of a right frontal craniotomy with mild subjacent dural thickening. There is also right frontal encephalomalacia No evidence of acute or subacute infarction Scattered foci of increased T2 and FLAIR signal within the white matter likely on a small vessel basis. Scattered tiny lacunar infarcts. MRA brain- Unremarkable MR angiogram of the brain. CXR-Cardiomegaly and emphysema with no acute cardiopulmonary abnormality. EEG- This EEG reveals evidence for mild generalized nonspecific abnormalities consistent with a mild nonfocal, generalized encephalopathy without potentially epileptogenic features. Impression 81 year old male with increased confusion and gait dysfunction- back to baseline per son Plan 1. MRI /MRA no acute findings 2. folate, B12, RPR ordered pending 3. EEG- no seizure activity 4. carotid/TTE if not done recently would order 5. PT/OT for discharge needs 6. slightly elevated WBC with no fever would trend - no UTI or find on CXR 7. progression of dementia? Parkinson's disease unknown source of increased confusion 8. TTE not needed, carotid doppler -ordered I have seen and discussed above patient with Dr Amanda Mahmood, neurology Pt seen and examined at bedside with son. 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 Was at club and became more unsteady and more confused with gradual improvement, ? to baseline. He apparently had not yet had alcohol (drinks several days/week, cognac). He had been well, typically ate breakfast. None of meds recently changed. LAbs, MRI, EEG, CXR noncontrib, although 02 sat was 90% on admission. His exam notable for severe bl FDI/ADM atrophy. Facial masking, mild dysarthria (dentures poorly fitting). Pt is very thin. Neck supple, NCAT. No asymm weakness. Query R rest tremor with minimal cogwheeling and mild generalized omi. Impr sudden (?) worsening of baseline cognition and balanced superimposed on baseline AD and Parkinsonism. Transient ischemia is within the differential and to complete duong rec carotid. Pt has afib but is not an AC candidate bc of falls, SDH. In general the sx did not sound like focal ischemia. I would check for orthostatics and a digoxin level. IVORY Mahmood MD
[2016-12-01 16:00] VITALS: O2SAT 93
[2016-12-01] MEDS: DIGOXIN 0.125 MG TAB PO SCH (16:32)
--- NOTE | 2016-12-01 18:05 | DIAGNOSTIC IMAGING REPORT ---
BILATERAL CAROTID DOPPLER STUDY HISTORY: Gait abnormality. possible TIA COMPARISON: None. TECHNIQUE: Real-time, grayscale, and color Doppler sonography of the carotid arteries was performed. Imaging reviewed in the transverse and longitudinal planes. All measurements were calculated based on NASCET criteria. FINDINGS: Antegrade flow is seen in the bilateral vertebral arteries. The brachial pressures are hemodynamically similar. Moderate right and mild left calcified plaque within the carotid bulbs. The peak systolic velocity within the right ICA is 73 cm/s. The right systolic ratio is 1.1. The peak systolic velocity within the left ICA is 41 cm/s. The left systolic ratio is 0.5. IMPRESSION: No hemodynamically significant stenosis seen within the carotid arteries. Electronically signed by: Justin Marino M.D. 12/01/2016 6:04 PM Dictated Date/Time: 12/01/2016 5:58 PM
[2016-12-01 20:33] VITALS: BP 119/78; PULSE 75; TEMP 36.6; O2SAT 93
[2016-12-01] MEDS ORDERED: SIMVASTATIN 20 MG TAB PO SCH (21:00)
[2016-12-02 01:07] VITALS: BP 129/86; PULSE 72; TEMP 36.5; O2SAT 93
[2016-12-02 04:06] VITALS: BP 133/79; PULSE 75; TEMP 36.6; O2SAT 91
[2016-12-02 06:34] LABS: CHOLESTEROL/HDL RATIO 1.7
[2016-12-02 07:17] VITALS: BP 137/79; PULSE 73; TEMP 36.4; O2SAT 92
[2016-12-02 07:37] LABS: BASO % 0.8 %; BASO ABS # 0.06 K/uL (0-0.2); COMPLETE YES; EOS % 5.6 %; HEMATOCRIT 43.8 % (42-52); IG% 0.1 %; LYMPH % 25.6 %; LYMPH ABS # 1.96 K/uL (1.2-3.4); MEAN CORPUSCULAR HEMOGLOBIN 31.2 pg (25-34); MEAN CORPUSCULAR HGB CONC 32.9 g/dl (32-36); MEAN PLATELET VOLUME 10.3 fL (7.4-10.4); MONO % 14.6 %; NEUT % 53.3 %; PLATELET COUNT 180 K/uL (130-400); RED BLOOD COUNT 4.61 M/uL (4.7-6.1); WHITE BLOOD COUNT 7.67 K/uL (4.8-10.8)
[2016-12-02] MEDS: TIOTROPIUM BROMIDE 5 PUFF/90 MCG INH INH SCH (09:21)
[2016-12-02] MEDS: MEMANTINE 10 MG TAB PO SCH (09:21)
[2016-12-02] MEDS: CYANOCOBALAMIN 100 MCG TAB (VIT B-12) PO SCH (09:21)
[2016-12-02] MEDS: FERROUS SULFATE 325 MG TAB PO SCH (09:22)
[2016-12-02] MEDS: DONEPEZIL HCL 10 MG TAB PO SCH (09:22)
[2016-12-02] MEDS: CEROVITE ADV FORMULA TAB PO SCH (09:22)
[2016-12-02] MEDS: ASPIRIN 81 MG ECTAB PO SCH (09:24)
[2016-12-02 11:12] VITALS: BP 128/88; PULSE 88; TEMP 36.4; O2SAT 91
--- NOTE | 2016-12-02 13:54 | Progress Note ---
Internal Med Progress Note Date of Service: Dec 02, 2016. Provider Documentation: SUBJECTIVE: Seen and examined at bedside doing well Offers no complaints Family at bedside Denies any Chest pain, SOB, dizziness, nausea, vomiting, abd pain, weakness, numbness OBJECTIVE: Vital Signs-as noted below Physical Exam: General Appearance:Moderately built and nourished, no apparent distress Head: normocephalic, Atraumatic Eyes: normal inspection, EOMI, PERRL Neck: supple, Trachea midline Respiratory/Chest: Normal breath sounds, CTA Cardiovascular: Irregularly irregular, + murmur Abdomen/GI:Soft, Non tender, Bowel sounds present Extremities/Musculoskelatal:normal inspection, no edema Neurologic/Psych:AAOX3, grossly no focal neurological deficits Skin: normal color, warm Lab data as noted below. ASSESSMENT & PLAN: Transient forgetfulness, disorientation, gait instability, hallucinations: Likely medication induced (On Lorazepam at home) Possible TIA/AD and presumed parkinsonism MRI/MRA brain: No acute pathology Carotid Doppler: No hemodynamically significant stenosis EEG:mild nonfocal, generalized encephalopathy without potentially epileptogenic features. Continue Aspirin, Statins Hold home sedatives for now Neuro checks Appreciate Neurology Input lipid panel:normal Patient POA reports symptoms started after patient was given lorazepam Advised to avoid Lorazepam use in future Discussed with today H/O recurrent subdural hematoma S/P surgery MRI/MRA brain: no acute issues monitor Atrial fibrillation: rate controlled Not on anticoagulation secondary to subdural hematoma Continue home meds Hypertension: stable Chronic left bundle branch block H/O chronic diastolic heart failure H/O Aortic Stenosis Patient euvolemic No acute issues DVT px: SCDs RE hx subdural hematoma. Code Status: DNR as per /POA, Ms. Nara Monterroso. She requests updates from providers at [phone]. Disposition: Patient qualifies for Inpatient Rehab initially but on re-evaluation his gait improved Discussed with Patient and his POA about possible rehab placement but they refused rehab placement and preferred outpatient PT Follow up with your PCP on Dec 07 at 2:30pm Follow up with your Neurologist in 2 weeks as advised Seek immediate medical attention if your symptoms reoccur or worsen Medication change:Lorazepam was discontinued Vital Signs: Date Time Temp Pulse Resp B/P (MAP) Pulse Ox O2 Delivery O2 Flow Rate FiO2 12/02/16 12:00 Room Air 12/02/16 11:12 36.4 88 16 128/88 (101) 91 Room Air 12/02/16 08:00 Room Air 12/02/16 07:17 36.4 73 18 137/79 (98) 92 Room Air 12/02/16 04:06 36.6 75 18 133/79 (97) 91 Room Air 12/02/16 01:07 36.5 72 18 129/86 (100) 93 Room Air 12/02/16 00:00 Room Air 12/01/16 20:33 36.6 75 20 119/78 (92) 93 Room Air 12/01/16 16:32 72 12/01/16 16:00 93 Room Air 12/01/16 15:00 36.5 79 16 119/77 (91) 95 Room Air Lab Results: Results Past 24 Hours Test 12/01/16 18:57 12/02/16 05:42 Range/Units Digoxin Level 0.7 0.8-2.0 ng/ml White Blood Count 7.67 4.8-10.8 K/uL Red Blood Count 4.61 4.7-6.1 M/uL Hemoglobin 14.4 14.0-18.0 g/dL Hematocrit 43.8 42-52 % Mean Corpuscular Volume 95.0 80-100 fL Mean Corpuscular Hemoglobin 31.2 25-34 pg Mean Corpuscular Hemoglobin Concent 32.9 32-36 g/dl Platelet Count 180 130-400 K/uL Mean Platelet Volume 10.3 7.4-10.4 fL Neutrophils (%) (Auto) 53.3 % Lymphocytes (%) (Auto) 25.6 % Monocytes (%) (Auto) 14.6 % Eosinophils (%) (Auto) 5.6 % Basophils (%) (Auto) 0.8 % Neutrophils # (Auto) 4.09 1.4-6.5 K/uL Lymphocytes # (Auto) 1.96 1.2-3.4 K/uL Monocytes # (Auto) 1.12 0.11-0.59 K/uL Eosinophils # (Auto) 0.43 0-0.5 K/uL Basophils # (Auto) 0.06 0-0.2 K/uL RDW Standard Deviation 49.6 36.4-46.3 fL RDW Coefficient of Variation 14.3 11.5-14.5 % Immature Granulocyte % (Auto) 0.1 % Immature Granulocyte # (Auto) 0.01 0.00-0.02 K/uL Triglycerides Level 60 0-150 mg/dl Cholesterol Level 111 0-200 mg/dl HDL Cholesterol 67 mg/dl LDL Cholesterol, Calculated 32 mg/dl VLDL Cholesterol, Calculated 12 mg/dl Cholesterol/HDL Ratio 1.7
--- NOTE | 2016-12-02 14:40 | Discharge Summary ---
Discharge Summary Date of Service Dec 02, 2016. Discharge Summary Admission Date: Dec 01, 2016 at 05:28 Discharge Date: Dec 02, 2016 Discharge Disposition: Home with services Principal Diagnosis: Encephalopathy Procedures: CT Head: Chronic and postoperative change. No acute process. MRA Brain: Unremarkable MR angiogram of the brain. MRI Brain: 1. No acute intracranial findings 2. Postsurgical changes of a right frontal craniotomy with mild subjacent dural thickening. There is also right frontal encephalomalacia 3. No evidence of acute or subacute infarction 4. Scattered foci of increased T2 and FLAIR signal within the white matter likely on a small vessel basis. Scattered tiny lacunar infarcts. CXR: Cardiomegaly and emphysema with no acute cardiopulmonary abnormality. Carotid Doppler: No hemodynamically significant stenosis seen within the carotid arteries. EEG: This EEG reveals evidence for mild generalized nonspecific abnormalities consistent with a mild nonfocal, generalized encephalopathy without potentially epileptogenic features. Consultations: Neurology Pending Studies/Follow-Up: Follow up with your PCP on Dec 07 at 2:30pm Follow up with your Neurologist in 2 weeks as advised Seek immediate medical attention if your symptoms reoccur or worsen Medication change:Lorazepam was discontinued Medication Reconciliation Continued Medications: Albuterol Sulf (Proventil 0.083% 2.5MG/3ML) 2.5 Mg/3 Ml Nebu 2.5 MG INH Q4 PRN for SOB/Wheezing, EA Albuterol Sulfate (Proair Respiclick) 108 Mcg/Act Aer 2 PUFFS INH QID Ascorbic Acid (Vitamin C) 500 Mg Tab 1 TAB PO DAILY Aspirin (Aspirin Chewable) 81 Mg Chew 81 MG PO DAILY Calcium/Vitamin D (Os-Salvatore 500 Plus D) Tab 1 TAB PO DAILY, TAB Cholecalciferol (Vitamin D) 1,000 Unit Tab 1 TAB PO DAILY Cyanocobalamin (Vitamin B-12) 100 Mcg Tab 100 MCG PO DAILY, TAB Digoxin (Digitek) 0.125 Mg Tab 0.125 MG PO DAILY Donepezil Hydrochloride (Aricept) 10 Mg Tab 10 MG PO DAILY Ferrous Sulfate (Ferrous Sulfate) 325 Mg Tab 1 TAB PO DAILY Memantine (Namenda) 10 Mg Tab 10 MG PO BID, TAB Mirtazapine Soltab (Remeron Soltab) 15 Mg Soltab 15 MG PO DAILY, TAB Multivitamins/Minerals (Mvi With Minerals) Tab 1 TAB PO DAILY, TAB Potassium/Phosphorus/Sodium (Phos-Nak Powder Concentra) 1 Pkt Powd 1 PKT PO DAILY Simvastatin (Zocor) 20 Mg Tab 20 MG PO QPM, TAB Tiotropium [place] (Spiriva Handihaler) 30 Puff/540 Mcg Aerp 1 CAP INH DAILY, INHALER Trazodone Hcl (Trazodone) 50 Mg Tab 50 MG PO HS, TAB Vitamin E (Vitamin E) 100 Unit Tab 1 TAB PO DAILY Discontinued Medications: Lorazepam (Ativan) 0.5 Mg Tab 0.5 MG PO DAILY PRN for Anxiety Admission Information HPI (per Admitting provider): CHIEF COMPLAINT: Disorientation, unsteady gait as per . HISTORY OF PRESENT ILLNESS: History obtained from patient's and records. Limited history from patient secondary to dementia and hearing impairment. Medical history significant for recurrent subdural hematoma status post surgery, chronic diastolic heart failure, EF of 59%, severe aortic stenosis, hypertension, chronic left bundle branch block, AFib off anticoagulation because of fall risk and subdural hematoma, dementia, past tobacco abuse. Recent confinement at [facility] February 2016 for recurrent subdural hematoma status post surgery. Yesterday, patient noted by to be unstable, unsteady gait. Px has to hold on to the mendoza for support, little more disoriented than usual. At a restaurant that he usually goes to, the patient could not find his way around Which is unusual as per . Patient fell down secondary to instability. No syncope, no chest pain, no unusual shortness of breath. Usual cough symptoms. As per , the patient having visual hallucinations, seeing people in the house when it was just 2 of them. Patient brought to the Emergency Room by . Currently mentation improved as per patient's . Aspirin, recently started this week. Physical Exam (per Admitting): PHYSICAL EXAMINATION: VITAL SIGNS: Blood pressure was noted to be 105/70, pulse rate 97, RR 22, temperature 36.8, sats 96% on room air. GENERAL: Noted to be hard of hearing. No respiratory distress. SKIN: Pallor, warm. HEENT: Pale palpebral conjuctivae. No ptosis. Dry buccal mucosa. Partial alopecia. NECK: No JVD. Supple. No tenderness. CHEST: Decreased effort. No tenderness. HEART: Irregular, systolic murmur. ABDOMEN: Soft, nontender. EXTREMITIES: Minimal LE edema, no tenderness. No gross deformities. NEUROLOGIC: Coherent, hard of hearing. Gait and stance not assessed. Hospital Course Transient forgetfulness, disorientation, gait instability, hallucinations: Likely medication induced (On Lorazepam at home) Possible TIA/AD and presumed parkinsonism MRI/MRA brain: No acute pathology Carotid Doppler: No hemodynamically significant stenosis EEG:mild nonfocal, generalized encephalopathy without potentially epileptogenic features. Continue Aspirin, Statins Hold home sedatives for now Neuro checks Appreciate Neurology Input lipid panel:normal Patient POA reports symptoms started after patient was given lorazepam Advised to avoid Lorazepam use in future Discussed with today H/O recurrent subdural hematoma S/P surgery MRI/MRA brain: no acute issues monitor Atrial fibrillation: rate controlled Not on anticoagulation secondary to subdural hematoma Continue home meds Hypertension: stable Chronic left bundle branch block H/O chronic diastolic heart failure H/O Aortic Stenosis Patient euvolemic No acute issues DVT px: SCDs RE hx subdural hematoma. Code Status: DNR as per /POA, Ms. Nara Monterroso. She requests updates from providers at [phone]. Disposition: Patient qualifies for Inpatient Rehab initially but on re-evaluation his gait improved Discussed with Patient and his POA about possible rehab placement but they refused rehab placement and preferred outpatient PT Follow up with your PCP on Dec 07 at 2:30pm Follow up with your Neurologist in 2 weeks as advised Seek immediate medical attention if your symptoms reoccur or worsen Medication change:Lorazepam was discontinued Total time spent on discharge = This includes examination of the patient, discharge planning, medication reconciliation, and communication with other providers. Discharge Instructions Discharge Instructions Date of Service Dec 02, 2016. Admission Reason for Admission: Encephalopathy Discharge Discharge Diagnosis / Problem: Encephalopathy Discharge Goals Goal(s): Decrease discomfort, Improve function Activity Recommendations Activity Limitations: resume your previous activity Exercise/Sports Limitations: as tolerated Driving or Machine Use: Driving not permitted . Instructions / Follow-Up Instructions / Follow-Up Follow up with your PCP on Dec 07 at 2:30pm Follow up with your Neurologist in 2 weeks as advised Seek immediate medical attention if your symptoms reoccur or worsen Medication change:Lorazepam was discontinued Current Hospital Diet Patient's current hospital diet: AHA Diet (Heart Healthy) Discharge Diet Recommended Diet: AHA Diet (Heart Healthy) Pending Studies Studies pending at discharge: no Laboratory Results Lipid Panel Test 12/02/16 05:42 Range/Units Triglycerides Level 60 0-150 mg/dl Cholesterol Level 111 0-200 mg/dl HDL Cholesterol 67 mg/dl Cholesterol/HDL Ratio 1.7 LDL Cholesterol, Calculated 32 mg/dl Medical Emergencies . Who to Call and When: Medical Emergencies: If at any time you feel your situation is an emergency, please call 911 immediately. . Non-Emergent Contact Non-Emergency issues call your: Primary Care Provider, Neurologist Call Non-Emergent contact if: you have a fever, your pain is not controlled, your pain is worsening, your pain is unusual for you, your pain is concerning you, you have any medication questions Seek immediate medical attention if your symptoms reoccur or worsen . . "Provider Documentation" section prepared by Wilfrid Zelaya. . VTE Core Measure Inpt VTE Proph given/why not?: SCD's <Electronically signed by Wilfrid Zelaya MD> Signed: 12/02/16 1439 Signed: The status of this report is Signed * If report status is Draft, the document has not been finalized by the responsible provider.
[2016-12-02 15:15] VITALS: BP 128/88; PULSE 88; TEMP 36.4; O2SAT 91
[2016-12-02] MEDS: DIGOXIN 0.125 MG TAB PO SCH (15:46)
== END 2016-12-02 16:05 | disposition home health service (06) ==
LOC: EDBD 02:55 → C.EDA 02:56 → C.MED 05:28 → ENRESERV 05:44
PROVIDERS: ADMIT Internal Medicine; ATTEND Internal Medicine
DX: G93.40 Encephalopathy, unspecified (principal); Z79.82 Long term (current) use of aspirin; G30.9 Alzheimer's disease, unspecified; I48.91 Unspecified atrial fibrillation; Z88.0 Allergy status to penicillin; Z91.018 Allergy to other foods; Z87.891 Personal history of nicotine dependence; Z86.79 Personal history of other diseases of the circulatory system

== ENCOUNTER → 2017-04-10 | Outpatient (CLI) | payer OTHER ==
[~2017-04-10] MED LIST changes: +ALBINS/ INH; +ASPCH81X PO; -CITA10TA8 PO; -FURO-85 PO; -LEVE750T PO; -LISI20TA3 PO; -METO-217 PO; +MIRT15TA2 PO; -PROAIR INH; +TRAZ50TA35 PO
--- NOTE | 2017-04-11 06:12 | PAP/PSG TECHNICIAN REPORT ---
[facility] Counter Top Assembler Polysomnogram Report Study name: None Report date: 04/11/2017 Study date: 04/10/2017 Referring Physician: Rafiq Fine MD Name: JAY JACKSON Interpreting Physician: Kaleb Bashir D.O. Date of : 1935 Counter Top Assembler: JOSE LUIS Torres. Sex: Male Age: 81 StudyType: PSG Weight: 173 lbs Height: 81 years, Height 6' 4" Neck Circum:15in. BMI: 21.06 Medications: Albuterol Sulfate 2.5mg/3ml, Aricept 5mg, ASA 81mg, Digox 125mcg, Ferrois Sulfate 324mg, Melatonin ER 10mg, Namenda 10mg, ProAir RespiClick 108mcg/act, Simvastatin 20mg, Spiriva 18mcg inhalation Capsule Patient History Study started on room air with no ETCO2 monitoring in room #6. His is staying in the room with him because of his dementia. 81 yr old male here tonight for a diagnostic psg. He has a history of COPD, dementia, lung mass and nodule of the left lung. He snores according to his but no witnessed apnea. His ESS=12/21. His neck circ=15inches. Parameters Monitored NPSG: E1-M2, E2-M1, Fp1-M2, Fp2-M1, F3-M2, F4-M2, F4-M1, C3-M2, C4-M2, C4-M1, O1-M2, O2-M2, O2-M1, T3-M2, T4-M1, P3-M2, P4-M1, CHIN1, CHIN2, HR, EKG, Legs, PFLOW, SNOR, FLOW, CFLOW, Tidal Volume, THOR, ABDO, SpO2, PLTH, CPRESS, ETCO2 Wave, ETCO2, pH Sleep Architecture Sleep Stages Time at Lights Off 10:42:48 PM STAGES Time (min.) TST (%) Time at Lights On 5:50:48 AM Wake 158.5 -- Total Recording Time (TRT) 428.00 min. N1 8.0 3 Total Sleep Period (TSP) 373.0 min. N2 216.0 80 Total Sleep Time (TST) 269.5min. N3 45.5 17 Awake Time 158.5 min. REM 0.0 0 Wake after Sleep Onset 103.5 min. Sleep Efficiency (SE) 63 % Sleep Onset Latency (GONZALEZ) 55.0 min. Number of Stage 1 Shifts None Awakenings 9 Stage Changes 48 Number of REM periods N/A REM 0.0 0 REM Latency NONE min. NREM 269.5 100 Body Position Analysis Supine Right Left Side Prone Vertical Total Sleep Time (min.) 8.1 269.5 0.0 269.50 0.0 0.0 Total Sleep Time (%) 0% 100% 0% 100 0% N/A% Total Sleep Time REM (min.) 0.0 0.0 0.0 None 0.0 0.0 Total Sleep Time NREM (min.) 0.0 269.5 0.0 None 0.0 0.0 Intermittent Wake (min.) 8.1 150.4 0.0 None 0.0 0.0 Total Sleep Period (%) 0% None None None None None Arousals Myoclonus (PLM) * Events Count Index Events Count Index Spontaneous 11 2 Events Awake (PLMW) 229 86.7 Respiratory 0 0.0 Events Asleep w/ Arousal (PLMA) 17 3.8 PLM 17 4 Events Asleep w/o Arousal (PLMS) 275 61.2 Snoring 5 1 Total Asleep 292 65.0 Total 33 7 Total 521 73 Respiratory Analysis * CA OA MA CH H RERA Total Count 0 0 0 0 0 0 0 Index 0.0 0.0 0.0 0 0.0 0 0.0 Mean Duration 0.0 0.0 0.0 0.00 0.0 0.0 0.0 Longest Duration 0.0 0.0 0.0 0.00 0.0 0.0 0.0 Respiratory Event Summary Total Supine ~Supine Right Left Prone REM NREM Apneas Count 0 N/A 0 0 N/A N/A N/A 0 Index 0.0 N/A 0 0.0 N/A N/A N/A 0 Hypopneas (4% Desat) Count 0 N/A 0 0 N/A N/A N/A 0 Index 0.0 N/A 0 0.0 N/A N/A N/A 0.0 Apneas & All Hypopneas Count 0 N/A 0 0 N/A N/A N/A 0 Index 0.0 N/A 0 0 N/A N/A N/A 0.0 Respiratory Events (Industrial Controls Technician+All Hyp+RERA) Count 0 N/A 0 0 N/A N/A N/A 0 Index 0.0 N/A 0 0.0 N/A N/A N/A 0.0 Respiratory Related Arousal Count 0 N/A 0 0 N/A N/A N/A 0 Index 0.0 N/A 0 0 N/A N/A N/A 0 Snoring Analysis Supine Right Left Prone REM NREM Total Snore duration 2.2 min Snores count N/A 37 N/A N/A N/A 37 37 Snore mean duration 3.6 Sec Snores index N/A 8 N/A N/A N/A 8.2 8.2 TST with snoring (%) 0.8% Desaturation Event Summary: Minimum %SpO2 Event Count Mean/Min/Max Duration(sec.) Desaturation Index % Time In Bed > 90 9 26.0 / 4.0 / 55.8 2.4 56.6 86 - 90 4 20.6 / 5.5 / 50.8 1.4 42.8 81 - 85 0 N/A 0.0 0.6 76 - 80 1 4.0 / 4.0 / 4.0 654.5 0.0 71 - 75 0 N/A 0.0 0.0 66 - 70 0 N/A 0.0 0.0 61 - 65 0 N/A 0.0 0.0 56 - 60 0 N/A 0.0 0.0 51 - 55 0 N/A 0.0 0.0 < 50 0 N/A 0.0 0.0 Total REM NREM Awake <50% 0.0 min. 0.0 min. 0.0 min. 0.0 min. 51 - 60% 0.0 min. 0.0 min. 0.0 min. 0.0 min. 61 - 70% 0.0 min. 0.0 min. 0.0 min. 0.0 min. 71 - 80% 0.1 min. 0.0 min. 0.0 min. 0.1 min. 81 - 90% 171.3 min. 0.0 min. 130.0 min. 41.2 min. 91 - 100% 223.3 min. 0.0 min. 137.7 min. 85.6 min. Average 91 0 91 92 Minimum SpO2 78 N/A 85 78 Desaturation Event Index 1.5 0.0 0.9 2.6 # Desat. Events below 89% 5 N/A 2 3 Time(%) with Saturation below 89% 6.3 0.0 3.3 3.0 Time(min.) with Saturation below 89% 24.8 0.0 12.9 12.0 Time (mins) REM (mins) NREM (mins) % of TST SpO2 Below 90% 3 N/A N3 22.7 SpO2 Below 88% 1 0 0 1 Heart Rate Analysis Min (bpm) Max (bpm) Average (bpm) Awake 32 300 68 NREM 32 90 64 REM N/A N/A N/A Overall 32 90 64 Supplemental O2 Values Minimum O2 level: None Value Start Time End Time Counter Top Assembler Comments Mr. Jackson slept in the right and supine positions. Cardiac arrhythmia and leg movements were noted, please see print outs. No bruxism noted. Snoring was noted and scored as a 1 on a scale of 1 through 5. (0=no snoring, 5=snoring loud enough to be heard through a closed door or down the rodriguez way) His had very loud snoring. He awoke to use the restroom 1 time during the night. He stated that he slept worse than when at home. The final report will be interpreted and signed by a sleep physician. The completed physician report will then be placed in the patient medical record. Therapy (cm H2O) 0 TIB (min.) 428.0 TST (min.) 269.5 Sleep Onset (min.) 55.0 REM Onset From Sleep (min.) NONE Sleep Efficiency % 63 Wakefulness (%) 37 Wakefulness (min.) 158.5 NREM 1 (%) 3 NREM 1 (min.) 8.0 NREM 2 (%) 80 NREM 2 (min.) 216.0 NREM 3 (%) 17 NREM 3 (min.) 45.5 REM (%) 0 REM (min.) 0.0 # Arousals 33 Arousal Index 7 # Snore 37 Snore Index 8.2 AHI 0.0 AHI Supine N/A AHI Non-Supine 0 NREM AHI 0.0 REM AHI N/A RDI 0.0 # Obstructive Apnea 0 # Central Apnea 0 # Mixed Apnea 0 # Hypopneas 0 RERAs 0 Total Respiratory Events 2 Time Below SpO2 89% (min.) 12.9 Mean NREM SpO2 (%) 91 Mean REM SpO2 (%) N/A Mean Sleep SpO2 (%) 91 Min NREM SpO2 (%) 85 Min REM SpO2 (%) N/A Position Supine (min.) 8.1 Position Non-supine (min.) 269.5 LM Index Sleep 65.0 LM Index NREM 65.0 LM Index REM N/A Mean Heart Rate (bpm) 64 Min Heart Rate (bpm) 32
--- NOTE | 2017-04-13 19:31 | Sleep Study ---
Sleep Study Report Date of Service: 04/10/2017 Sleep Study Report CLINICAL DATA: The patient is an 81-year-old male with a history of snoring. He does have dementia. The [place] Sleepiness Scale score is 12 out of a possible 21. This was an in-lab overnight polysomnography. SLEEP ARCHITECTURE: The sleep period time was 373 minutes. The total sleep time was 269.5 minutes. The sleep efficiency was severely reduced to 63 percent. The sleep latency was prolonged to 55 minutes. Wake after sleep onset was prolonged to 103.5 minutes. Sleep consisted of stage N1 3 percent, stage N2 80 percent, stage N3 17 percent, stage REM 0 percent. AROUSAL DATA: The patient had a total of 33 arousals including 11 spontaneous arousals, 17 PLM arousals, and 5 snoring arousals. The arousal index was 7. PLM DATA: The patient had a total of 292 periodic limb movements of sleep for a PLM index of 65. There were 17 arousals associated with limb movements for a PLM arousal index of 3.8. EKG: The underlying cardiac rhythm was atrial fibrillation. The lowest recorded heart rate was 32 beats per minute. This is likely artifactual. The highest heart rate was 90. The average heart rate was 64 beats per minute. RESPIRATORY DATA: The patient had 0 respiratory events. His apnea-hypopnea index was 0. OXIMETRY DATA: The average saturation was 91 percent. The minimum recorded saturation was 78 percent. This likely was artifactual. There was a total of 24.8 minutes with saturations recorded less than 89 percent. It is believe that much of this is artifact as well. He likely had very little time with saturations less than 89 percent. RUG DYER COMMENTS: The patient slept in the right and supine positions. Cardiac arrhythmia and leg movements were noted. No bruxism noted. Snoring was noted and scored as a 1 on a scale of 1 through 5. His slept in the room with him because of dementia. She had very loud snoring. He awakened to use the restroom 1 time during the night. IMPRESSIONS: 1. No evidence of obstructive sleep apnea 2. Periodic limb movement disorder 3. Cardiac arrhythmia-atrial fibrillation COMMENTS: Patient had disturbed sleep. He had poor sleep efficiency. There was a markedly prolonged sleep latency and he had an extensive episode of wake during the nighttime. He did have atrial fibrillation throughout the night. The cardiac rates were controlled. It did not appear that he had any significant bradycardia or tachycardia. He was very restless when he was awake. There was a significant number of limb movements during sleep. There was only a small number of arousals associated with limb movements. The significance of these are unknown. RECOMMENDATIONS: 1. Clinical correlation is advised to determine if the leg movements are significant. 2. Suggest checking serum ferritin level to rule out iron deficiency as a cause for the limb movements. 3. The patient should follow up with Dr. Fine who referred him for this study. Copies To 1: Kaleb Bashir DO; Seerna Soni M.D.; Rafiq Fine M.D.
== END | disposition home or self-care (01) ==
LOC: C.NEUR 20:00
PROVIDERS: ATTEND Internal Medicine Pulmonary Disease
DX: J44.9 Chronic obstructive pulmonary disease, unspecified (principal); I48.91 Unspecified atrial fibrillation; G47.61 Periodic limb movement disorder

== ENCOUNTER 2017-05-23 04:16 | Emergency (ER) | payer OTHER ==
[~2017-05-23] VITALS: Ht 193 cm; Wt 72.4 kg
[2017-05-23 04:20] VITALS: TEMP 37.3; O2SAT 93; Ht 193 cm; Wt 72.4 kg
[2017-05-23] MEDS ORDERED: METHYLPREDNISOLONE 125 MG VIAL IV STA (04:21)
--- NOTE | 2017-05-23 04:26 | EMERGENCY ROOM VISIT NOTE ---
History Report prepared by Mariangel: Edith Valle Under the Supervision of: Dr. Nilesh Pena M.D. First contact with patient: 04:18 Chief Complaint: RESPIRATORY PROBLEMS Stated Complaint: BREATHING DIFFICULTY History of Present Illness The patient is an 81 year old male who presents to the Emergency Room with complaints of persistent general shortness of breath since 1.5 hours ago. Per EMS, the patients woke up to the patient having a panic attack. They report that she placed the patient on her own oxygen. He has a history of COPD, CHF, and chronic atrial fibrillation. HPI is limited secondary to dementia. Source of History: EMS History Limited By: dementia Onset: 1.5 hours ago Position: other (general ) Quality: other (shortness of breath) Timing: other (persistent) Note: Notes panic attack Review of Systems ROS is limited secondary to dementia. Past Medical & Surgical Medical Problems: (1) Alzheimer disease (2) Atrial fibrillation (3) Cerebral hemorrhage (4) Emphysema (5) Encephalopathy Family History Patient reports no known family medical history. Social History Smoking Status: Former Smoker Alcohol Use: occasionally Drug Use: none Marital Status: Housing Status: lives with significant other Occupation Status: retired Current/Historical Medications Scheduled Albuterol Sulfate (Proair Respiclick), 2 PUFFS INH QID Ascorbic Acid (Vitamin C), 1 TAB PO DAILY Aspirin (Aspirin Chewable), 81 MG PO DAILY Calcium/Vitamin D (Os-Salvatore 500 Plus D), 1 TAB PO DAILY Cholecalciferol (Vitamin D), 1 TAB PO DAILY Cyanocobalamin (Vitamin B-12), 100 MCG PO DAILY Digoxin (Digitek), 0.125 MG PO DAILY Donepezil Hydrochloride (Aricept), 10 MG PO DAILY Doxycycline Hyclate (Vibramycin), 100 MG PO BID Ferrous Sulfate (Ferrous Sulfate), 1 TAB PO DAILY Furosemide (Lasix), 20 MG PO DAILY Melatonin (Melatonin Maximum Strengt), 10 MG PO HS Memantine (Namenda), 10 MG PO BID Methylprednisolone (Medrol Dosepak), 1 PKT PO UD Multivitamin (Multivitamin), 1 TAB PO DAILY Simvastatin (Zocor), 20 MG PO QPM Tiotropium [place] (Spiriva Handihaler), 1 CAP INH DAILY Trazodone Hcl (Trazodone), 50 MG PO BID Vitamin E (Vitamin E), 1 TAB PO DAILY Scheduled PRN Acetaminophen (Tylenol), 650 MG PO Q4 PRN for Pain Albuterol Sulf (Proventil 0.083% 2.5MG/3ML), 2.5 MG INH Q4 PRN for SOB/Wheezing Allergies Coded Allergies: [place] (Verified Allergy, Severe, GI SYMPTOMS, 05/23/17) Penicillins (Verified Allergy, Intermediate, RASH, 05/23/17) Potato (Verified Allergy, Unknown, GI SYMPTOMS, 05/23/17) Physical Exam Vital Signs Date Time Temp Pulse Resp B/P (MAP) Pulse Ox O2 Delivery O2 Flow Rate FiO2 05/23/17 05:41 113 24 124/73 92 05/23/17 04:44 87 24 116/88 98 Room Air 05/23/17 04:37 83 24 92 Room Air 05/23/17 04:20 93 Room Air 05/23/17 04:20 37.3 89 28 135/104 93 Room Air 05/23/17 04:20 93 Room Air Physical Exam GENERAL: Patient is demented and dyspneic/tachypneic-appearing and in mild acute distress. EYES: No scleral icterus, unremarkable pupils. ENT: Mucous membranes moist, no nasal congestion. NECK: No masses appreciated, no meningismus, trachea is midline. RESPIRATORY: Tight lung sounds in all lung brown, with faint wheezing and crackles at bases. CARDIOVASCULAR: Regular rate and rhythm. No murmurs, rubs, gallops appreciated. GASTROINTESTINAL: Abdomen soft, nontender, no peritonitis. Bowel sounds positive. No masses appreciated. BACK: No midline tenderness, no CVA tenderness EXTREMITIES: Normal motion all extremities, no cyanosis, no edema. NEUROLOGIC: Alert and oriented, no acute motor or sensory deficits, no focal weakness, cranial nerves grossly intact. SKIN: No rash, no jaundice, no diaphoresis. Medical Decision & Procedures ER Provider Diagnostic Interpretation: Radiology results and stated below per my review and interpretation: CHEST XR: One view: Severe emphysematous changes. No infiltrate. No effusion. Normal cardiac border. Similar to 06/2016. Laboratory Results 05/23/17 04:27 Red Blood Count 4.64, Mean Corpuscular Volume 93.1, Mean Corpuscular Hemoglobin 32.1, Mean Corpuscular Hemoglobin Concent 34.5, Mean Platelet Volume 9.6, Neutrophils (%) (Auto) 84.2, Lymphocytes (%) (Auto) 6.9, Monocytes (%) (Auto) 5.9, Eosinophils (%) (Auto) 2.4, Basophils (%) (Auto) 0.4, Neutrophils # (Auto) 9.09, Lymphocytes # (Auto) 0.74, Monocytes # (Auto) 0.64, Eosinophils # (Auto) 0.26, Basophils # (Auto) 0.04 05/23/17 04:27 Test 05/23/17 04:27 White Blood Count 10.79 K/uL (4.8-10.8) Red Blood Count 4.64 M/uL (4.7-6.1) Hemoglobin 14.9 g/dL (14.0-18.0) Hematocrit 43.2 % (42-52) Mean Corpuscular Volume 93.1 fL (80-100) Mean Corpuscular Hemoglobin 32.1 pg (25-34) Mean Corpuscular Hemoglobin Concent 34.5 g/dl (32-36) Platelet Count 194 K/uL (130-400) Mean Platelet Volume 9.6 fL (7.4-10.4) Neutrophils (%) (Auto) 84.2 % Lymphocytes (%) (Auto) 6.9 % Monocytes (%) (Auto) 5.9 % Eosinophils (%) (Auto) 2.4 % Basophils (%) (Auto) 0.4 % Neutrophils # (Auto) 9.09 K/uL (1.4-6.5) Lymphocytes # (Auto) 0.74 K/uL (1.2-3.4) Monocytes # (Auto) 0.64 K/uL (0.11-0.59) Eosinophils # (Auto) 0.26 K/uL (0-0.5) Basophils # (Auto) 0.04 K/uL (0-0.2) RDW Standard Deviation 47.7 fL (36.4-46.3) RDW Coefficient of Variation 14.0 % (11.5-14.5) Immature Granulocyte % (Auto) 0.2 % Immature Granulocyte # (Auto) 0.02 K/uL (0.00-0.02) Prothrombin Time 10.5 SECONDS (9.0-12.0) Prothromb Time International Ratio 1.0 (0.9-1.1) Activated Partial Thromboplast Time 26.4 SECONDS (21.0-31.0) Partial Thromboplastin Ratio 1.0 Venous Blood pH 7.42 (7.36-7.41) Venous Blood Partial Pressure CO2 52 mmHg (38.0-50.0) Venous Blood Partial Pressure O2 35 mmHg Venous Blood HCO3 33 mmol/L Venous Blood Oxygen Saturation 67.7 % Venous Blood Base Excess 6.7 mEq/L Anion Gap 2.0 mmol/L (3-11) Est Creatinine Clear Calc Drug Dose 47.9 ml/min Estimated GFR () 62.0 Estimated GFR (Non- 53.5 BUN/Creatinine Ratio 12.9 (10-20) Calcium Level 9.3 mg/dl (8.5-10.1) Magnesium Level 2.1 mg/dl (1.8-2.4) Troponin I < 0.015 ng/ml (0-0.045) Laboratory results as reviewed by me. Medications Administered Medications (Trade) Dose Ordered Sig/Marcos Route Start Time Stop Time Status Last Admin Dose Admin Methylprednisolone Sodium Succinate (Solu-Medrol IV) 125 mg NOW STAT IV 05/23/17 04:21 05/23/17 04:24 DC 05/23/17 04:42 125 MG Albuterol/ Ipratropium (Duoneb) 12 ml ONE ONCE INH 05/23/17 04:30 05/23/17 04:31 DC 05/23/17 04:36 12 ML Doxycycline Hyclate (Vibramycin Cap) 100 mg ONE ONCE PO 05/23/17 05:15 05/23/17 05:16 DC 05/23/17 05:41 100 MG ECG Per My Interpretation Indication: SOB/dyspnea Rate (beats per minute): 88 Rhythm: atrial fibrillation Findings: LBBB, no acute ischemic change, other (QTC 438. ) ED Course 0418: The patient was evaluated in room B4B. A complete history and physical exam was performed. 0435: I reassessed the patient at this time. I spoke with the patient's who is at bedside. She notes his breathing is at baseline. She notes he is back to his normal. She states that it appeared he was having a panic attack, which she reports his common for him. She is agreeable to labs and treatment. She states that if there are no acute findings, then she would like to take him home. 0508: I reassessed the patient at this time. He is no longer dyspneic. His HR is 90 and irregular. His O2sat is 97%. I discussed the results and treatment plan with the patient and his . The patient is demanding to go home. Patient refuses CT scan. states she will have the patient follow up with his PCP in two days. I answered all pertaining questions that they had. They expressed understanding and verbalized agreement. The patient will be discharged home. Medical Decision Differential: Infectious, Reactive Airway Disease, Pneumonia, Pneumothorax, COPD , CHF, ACS, Pulmonary Embolism, MSK, GI, Dissection, amongst other etiologies entertained. 81 yr old male with significant dementia/alzheimers arrives following episode of acute SHOB this evening for which called EMS. He is stable on arrival though a bit shob and tight lung sounds. Vastly improved with just part of hour neb and IV steroids. He is demanding to go home. who is now at bedside agrees he is at his normal baseline and very much wishes to take him home. As his vitals are OK and he is feeling well seems reasonable to dc. Discussed with that acs, pe, and other acute things have not been completely ruled out but given his insistance on getting home and him feeling better she wishes to avoid further testing. Patient will be started on doxy for possible infectious etiology of copd exacerbation in addition to steroid taper. Discussed with that she can return with him at any time if worsening/call 911. Also discussed how she is managing with him at home and she notes she feels comfortable caring for him still Medication Reconcilliation Current Medication List: was personally reviewed by me Blood Pressure Screening Patient's blood pressure: Normal blood pressure Impression Primary Impression: Acute exacerbation of chronic obstructive pulmonary disease (COPD) Scribe Attestation The scribe's documentation has been prepared under my direction and personally reviewed by me in its entirety. I confirm that the note above accurately reflects all work, treatment, procedures, and medical decision making performed by me. Departure Information Dispostion Home / Self-Care Prescriptions Doxycycline Hyclate (VIBRAMYCIN) 100 Mg Cap 100 MG PO BID for 7 Days, #14 CAP Prov: Nilesh Pena M.D. 05/23/17 Methylprednisolone (MEDROL DOSEPAK) 4 Mg Igor 1 PKT PO UD for 6 Days, #1 PKT Prov: Nilesh Pena M.D. 05/23/17 Referrals Serena Soni M.D. (PCP) Forms HOME CARE DOCUMENTATION FORM, IMPORTANT VISIT INFORMATION, WORK / SCHOOL INSTRUCTIONS Patient Instructions COPD - [facility], [facility]
[2017-05-23] MEDS ORDERED: ALBUT/IPRATROP 3MG/0.5MG NEB 3 ML VIAL INH ONE (04:30)
[2017-05-23 04:37] VITALS: PULSE 83; O2SAT 92
[2017-05-23 04:38] LABS: BASO % 0.4 %; BASO ABS # 0.04 K/uL (0-0.2); EOS % 2.4 %; EOS ABS # 0.26 K/uL (0-0.5); HEMATOCRIT 43.2 % (42-52); HEMOGLOBIN 14.9 g/dL (14.0-18.0); IG# 0.02 K/uL (0.00-0.02); LYMPH % 6.9 %; LYMPH ABS # 0.74 K/uL (1.2-3.4); MEAN CELL VOLUME 93.1 fL (80-100); MEAN CORPUSCULAR HEMOGLOBIN 32.1 pg (25-34); MEAN CORPUSCULAR HGB CONC 34.5 g/dl (32-36); MEAN PLATELET VOLUME 9.6 fL (7.4-10.4); MONO % 5.9 %; MONO ABS # 0.64 K/uL (0.11-0.59); NEUT % 84.2 %; NEUT ABS # 9.09 K/uL (1.4-6.5); PLATELET COUNT 194 K/uL (130-400); RED CELL DISTRIBUTION WIDTH SD 47.7 fL (36.4-46.3); WHITE BLOOD COUNT 10.79 K/uL (4.8-10.8)
[2017-05-23 04:56] LABS: BLOOD UREA NITROGEN 16 mg/dl (7-18); CALCIUM 9.3 mg/dl (8.5-10.1); CARBON DIOXIDE 32 mmol/L (21-32); CREATININE 1.26 mg/dl (0.60-1.40); GLUCOSE 82 mg/dl (70-99); POTASSIUM 3.9 mmol/L (3.5-5.1); PTT PATIENT 26.4 SECONDS (21.0-31.0); SODIUM 136 mmol/L (136-145)
[2017-05-23] MEDS ORDERED: MULT-506 PO (05:00)
[2017-05-23] MEDS ORDERED: FURO-85 PO (05:01)
[2017-05-23] MEDS ORDERED: MELATAB2 PO (05:01)
[2017-05-23] MEDS ORDERED: ACET-1311 PO (05:01)
[2017-05-23] MEDS ORDERED: AZITHROMYCIN 250 MG TAB PO STA (05:10)
[2017-05-23] MEDS ORDERED: DOXY100C PO (05:13)
[2017-05-23] MEDS ORDERED: METH4PAK PO (05:13)
[2017-05-23] MEDS ORDERED: DOXYCYCLINE HYCLATE 100 MG CAP PO ONE (05:15)
[2017-05-23 05:41] VITALS: BP 124/73; PULSE 113; O2SAT 92
--- NOTE | 2017-05-23 07:17 | DIAGNOSTIC IMAGING REPORT ---
CHEST ONE VIEW PORTABLE CLINICAL HISTORY: SHOB dyspnea COMPARISON STUDY: 12/01/2016 FINDINGS: Findings of chronic emphysematous change. No evidence for superimposed infiltrate. No evidence for cardiac enlargement. Diaphragms are smooth. Slight chronic scarring of the lateral costophrenic angles. IMPRESSION: Emphysematous change. No acute process. No change from the prior exam. The above report was generated using voice recognition software. It may contain grammatical, syntax or spelling errors. Electronically signed by: Dominik Howard M.D. 05/23/2017 7:16 AM Dictated Date/Time: 05/23/2017 7:15 AM
== END 2017-05-23 05:42 | disposition home or self-care (01) ==
LOC: EDBD 04:16 → C.EDB 04:16
DX: J44.1 Chronic obstructive pulmonary disease with (acute) exacerbation (principal); I48.91 Unspecified atrial fibrillation; G30.9 Alzheimer's disease, unspecified; F02.80 Dementia in other diseases classified elsewhere, unspecified severity, without behavioral disturbance, psychotic disturbance, mood disturbance, and anxiety; Z79.82 Long term (current) use of aspirin; Z87.891 Personal history of nicotine dependence; Z88.0 Allergy status to penicillin; Z91.018 Allergy to other foods

== ENCOUNTER → 2017-05-25 | Outpatient (CLI) | payer OTHER ==
[~2017-05-25] MED LIST changes: +ACET-1311 PO; +DOXY100C PO; +FURO-85 PO; +MELATAB2 PO; +METH4PAK PO; -MIRT15TA2 PO; +MULT-506 PO; -MULT-513 PO; -NTRP PO
--- NOTE | 2017-05-25 14:12 | DIAGNOSTIC IMAGING REPORT ---
(CHEST) THORAX WITHOUT CT DOSE: 215.01 mGy.cm CLINICAL HISTORY: 81 years-old Male with R91.1 Nodule of left lung6 MONTH FOLLOW UP [id number]. Follow-up study in a patient with left lung nodule TECHNIQUE: Multiaxial CT images of the chest were performed without contrast. A dose lowering technique was utilized adhering to the principles of ALARA. COMPARISON: Chest CT 11/26/2016 images only without report FINDINGS: No dominant thyroid nodule. Evaluation for adenopathy is limited without contrast. Calcified right hilar lymph nodes. No pathologically enlarged lymph nodes by CT size criteria. Heart is upper limits of normal in size without pericardial effusion. Coronary arterial disease. Calcified papillary muscles the left ventricle. Aortic annular calcifications are noted. Moderate atherosclerosis of the aorta without aneurysm. The main pulmonary artery is dilated measuring up to 3.2 cm transversely. There is no pneumothorax or pleural effusion. Moderate upper lobe predominant centrilobular emphysema with scattered calcified granulomas. Moderate biapical pleural-parenchymal scarring with bilateral bronchial wall thickening. Linear nodular opacity of the apical posterior segment left upper lobe measures 1.2 x 0.6 cm, unchanged. 4 mm nodule of the lingula on image 161 series 4 is also unchanged. 2 mm nodular opacities of the peripheral left lower lobe suggesting bronchiolitis are unchanged. 4 mm solid nodule of the apical segment right upper lobe on image 58 series 4 is unchanged. Linear subsegmental reticular opacities of the right upper lobe laterally suggest areas of scarring including a 6 mm nodular lesion on image 78 series 4 which is unchanged. Central airways are patent. Calcifications of the tracheobronchial tree. No acute process of the imaged upper abdomen. Mild multilevel endplate spurring about the spine. IMPRESSION: 1. Moderate upper lobe predominant centrilobular emphysema with unchanged biapical pleural-parenchymal scarring. 2. Prior granulomatous disease with multiple additional scattered noncalcified solid pulmonary nodules which appear unchanged in size and appearance from comparison study dated 11/26/2016. These nodules include a 1.2 cm linear nodule of the apical posterior segment left upper lobe. 3. Dilation of the main pulmonary artery suggests pulmonary arterial hypertension. 4. Additional findings as above. Please refer to below summary of Fleischner criteria recommendations for follow-up of incidental CT nodules (H Stephen, Guidelines for management of small pulmonary nodules detected on CT scans: A statement from the Fleischner Society, Radiology 237: [phone].) SOLID NODULES Multiple nodules size: <6 mm * Low risk patients: no routine follow-up * high risk patients: optional CT at 12 months Multiple nodules size: 6-8 mm * Low risk patients: follow-up at 3-6 months, then consider further follow-up at 18-24 months * high risk patients: follow-up at 3-6 months, then at 18-24 months if no change Multiple nodules size: >8 mm * Low risk patients: follow-up at 3-6 months, then consider further follow-up at 18-24 months * high risk patients: follow-up at 3-6 months, then at 18-24 months if no change Note: newly detected indeterminate nodule in persons 35 years of age or older. * Low risk patients: minimal or absent history of smoking and/or other known risk factors * high risk patients: history of smoking or of other known risk factors (e.g. first degree relative with lung cancer, or exposure to asbestos, radon, uranium) * if a nodule up to 8 mm is partly solid or is ground glass further follow-up is required after 24 months to exclude possible slow growing adenocarcinoma (ALEAH) The above report was generated using voice recognition software. It may contain grammatical, syntax or spelling errors. Electronically signed by: Bruce Gallegos M.D. 05/25/2017 2:11 PM Dictated Date/Time: 05/25/2017 2:00 PM
== END | disposition home or self-care (01) ==
LOC: C.CTS 13:43
PROVIDERS: ATTEND Surgery
DX: R91.8 Other nonspecific abnormal finding of lung field (principal); J43.9 Emphysema, unspecified; I28.8 Other diseases of pulmonary vessels

== ENCOUNTER 2018-12-03 18:03 | Inpatient (IN) ==
[2018-12-03 19:20] LABS: Basophils # (auto) 0.04 K/uL (0-0.2); Basophils % (auto) 0.3 %; Eosinophils % (auto) 0.7 %; Hemoglobin 13.8 g/dL (14.0-18.0); Immature Granulocytes # (auto) 0.05 K/uL (0.00-0.02); Immature Granulocytes % (auto) 0.3 %; Lymphocytes # (auto) 1.59 K/uL (1.2-3.4); Lymphocytes % (auto) 10.8 %; Mean Corpuscular Hemoglobin 31.5 pg (25-34); Mean Corpuscular Hgb Conc 32.9 g/dL (32-36); Mean Corpuscular Volume 95.9 fL (80-100); Monocytes # (auto) 1.06 K/uL (0.11-0.59); Monocytes % (auto) 7.2 %; Neutrophils # (auto) 11.82 K/uL (1.4-6.5); Neutrophils % (auto) 80.7 %; Platelet Count 333 K/uL (130-400); RDW Coefficient of Variation 13.2 % (11.5-14.5); RDW Standard Deviation 46.4 fL (36.4-46.3); Red Blood Count 4.38 M/uL (4.7-6.1); White Blood Count 14.66 K/uL (4.8-10.8)
[2018-12-03 19:29] LABS: Influenza A virus by PCR Neg for Influ A (Neg); Influenza B virus by PCR Neg for Influ B (Neg)
[2018-12-03 19:29] LABS: Base Excess VBG 6.2 mEq/L; HCO3 VBG 34 mmol/L; PCO2 VBG 64 mmHg (38-50); PO2 VBG 19 mmHg; pH VBG 7.35 (7.36-7.41)
[2018-12-03 19:30] LABS: Oxygen Saturation VBG < 60.0 %
[2018-12-03 19:33] LABS: INR 1.1 (0.9-1.1); Partial Thromboplastin Ratio 1.1; Partial Thromboplastin Time 30.1 Seconds (21.0-31.0); Prothrombin Time 11.4 Seconds (9.0-12.0)
[2018-12-03 19:38] LABS: Alanine Aminotransferase 41 U/L (12-78); Aspartate Aminotransferase 20 U/L (15-37); BUN Creatinine Ratio 16.3 (10-20); Blood Urea Nitrogen 17 mg/dl (7-18); Calcium 9.1 mg/dl (8.5-10.1); Carbon Dioxide 34 mmol/L (21-32); Chloride 101 mmol/L (98-107); Creatinine Clr Calc Pharmacy 53.5 ml/min; Est GFR (African American) 74.5; Est GFR (Non-African American) 64.3; Glucose 94 mg/dl (70-99); Magnesium 2.2 mg/dl (1.8-2.4); Potassium 4.4 mmol/L (3.5-5.1); Sodium 138 mmol/L (136-145)
[2018-12-03 19:43] LABS: Albumin Globulin Ratio 0.7 (0.9-2); Alkaline Phosphatase 130 U/L (45-117); Bilirubin,Total 0.6 mg/dl (0.2-1); C Reactive Protein 2.53 mg/dl (0-0.29); Globulin 4.3 gm/dl (2.5-4.0); NT Pro B Type Natriuretic Pept 1076 pg/ml (0-1800); Total Protein 7.3 gm/dl (6.4-8.2); Troponin I < 0.015 ng/ml (0-0.045)
--- NOTE | 2018-12-03 20:00 | XRay Report ---
XR chest 1V portable CLINICAL HISTORY: Sepsis dyspnea COMPARISON STUDY: 05/23/2017 FINDINGS: Emphysematous change. No focal infiltrate. Mild cardiomegaly. IMPRESSION: No acute process. Emphysematous change. The above report was generated using voice recognition software. It may contain grammatical, syntax or spelling errors. Electronically signed by: Dominik Howard M.D. 12/03/2018 7:58 PM
[2018-12-03] MEDS ORDERED: LEVOFLOXACIN/D5W 750 MG/150 ML BAG IV STA (20:32)
[2018-12-03] MEDS ORDERED: ALBUT/IPRATROP 3MG/0.5MG NEB 3 ML VIAL NEB STA (20:44)
--- NOTE | 2018-12-03 21:14 | History & Physical Report ---
Date of Service December 03, 2018 Assessment & Plan (1) Acute hypoxemic respiratory failure: ? COPD exacerbation Rule out pulmonary embolism hx probable bronchogenic neoplasm as per records, History of past tobacco abuse Hospice patient, patient family agreeable to confinement for medical management for now recurrent subdural hematoma status post surgery chronic diastolic heart failure, EF of 55-59% TTE 2017), patient euvolemic hx aortic stenosis hypertension,, BP on the lower side AFib, rate controlled, off anticoagulation secondary to fall risk and subdural hematoma, dementia Medical telemetry Supplemental O2 Baseline ABG CT chest PE study Further management pending CT chest results DVT prophylaxis. Lovenox subcu DNR as per prior directives. Patient's requesting updates from providers. Ms. Nara Monterroso, contact numbers [phone], [phone]. Addendum : CT chest initial read: No acute pulmonary embolism. Limited evaluation of segmental and subsegmental branches due to motion. No TAA. Consolidative opacities right lower lobe concerning for pneumonia. Centrilobular emphysema. Biapical pleuroparenchymal scarring. AP Ertapenem for HCAP, possible aspiration Prednisone course for possible COPD exacerbation secondary to H CAP. History of Present Illness Chief Complaint: Low O2 as per records Primary Care Provider: [facility] History obtained from patient, family, and records. Limited history from patient secondary to dementia and hearing impairment. 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 Recent confinement November 2016 for encephalopathy attributed to lorazepam. Patient transitioned to [facility] for hospice care last month. As per records, patient noted to have fever, wet cough, shortness of breath for the last 2 days. Patient denies any symptoms, does not know why he is in the hospital. At the ER, patient given Levaquin. 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, [employer] resident Medical History as above Surgical History : Family History : Personal/Social history : Allergies Allergy/AdvReac Type Severity Reaction Status Date / Time walnut Allergy Severe GI SYMPTOMS Verified 09/03/18 06:12 Penicillins Allergy Intermediate RASH Verified 12/03/18 19:30 potato Allergy Unknown GI SYMPTOMS Verified 12/03/18 19:30 Home Medications Home Medications Medication Instructions Recorded Confirmed Type acetaminophen [Tylenol] 650 mg PO Q4 PRN 12/03/18 12/03/18 History albuterol sulfate 2.5 mg INHALATION Q4 PRN 12/03/18 12/03/18 History buspirone 5 mg PO .Q24HRS PRN 12/03/18 12/03/18 History buspirone 5 mg PO BID 12/03/18 12/03/18 History dextromethorphan-guaifenesin 10 ml PO Q4 PRN 12/03/18 12/03/18 History [Tussin DM] digoxin [Lanoxin] 125 mcg PO DAILY 12/03/18 12/03/18 History diphenoxylate-atropine [Lomotil] 2 tab PO Q6H PRN 12/03/18 12/03/18 History donepezil [Aricept] 10 mg PO DAILY 12/03/18 12/03/18 History food supplemt, lactose-reduced 1 ea PO BID 12/03/18 12/03/18 History [Boost] furosemide [Lasix] 20 mg PO DAILY 12/03/18 12/03/18 History lorazepam [Ativan] 0.5 mg PO BID 12/03/18 12/03/18 History melatonin 3 mg PO HS 12/03/18 12/03/18 History memantine [Namenda] 10 mg PO DAILY 12/03/18 12/03/18 History mirtazapine [Remeron] 15 mg PO HS 12/03/18 12/03/18 History montelukast [Singulair] 10 mg PO HS 12/03/18 12/03/18 History simvastatin [Zocor] 20 mg PO QPM 12/03/18 12/03/18 History venlafaxine [Effexor XR] 37.5 mg PO QAM 12/03/18 12/03/18 History venlafaxine [Effexor XR] 75 mg PO QAM 12/03/18 12/03/18 History Past Med/Surg History Medical History Cerebral hemorrhage Alzheimer disease (Chronic) Atrial fibrillation (Chronic) Encephalopathy Family History Other Family history non-contributory Social History Preferred Language: Yakut Beliefs That Will Affect Care: None Current Living Situation: Personal Care Facility Current Living Situation Comment: [facility] Feels Safe at Home: Yes Smoking Status: Former smoker Hx Alcohol Use: No Hx Substance Use: No Review of Systems Review of Systems: Could not be reliably obtained Physical Exam Physical Exam: GENERAL: Comfortable, demented, underweight, no respiratory distress SKIN: Normal color, warm HEENT: [place] palpebral conjunctivae, no ptosis, dry buccal mucosa, nasal cannula in place NECK : Supple, no tenderness CHEST : Decreased breath sounds , no tenderness HEART : Irregular, systolic murmur ABDOMEN: Soft, nontender EXTREMITIES : No LE swelling/tenderness, no other conspicuous deformities noted NEUROLOGIC : Demented , no facial asymmetry, gait and stance not assessed Results & Data Vital Signs (Past 12 Hours) Vital Signs Temp Pulse Pulse Resp BP BP Pulse Ox 12/03/18 20:54 88 22 97 12/03/18 19:45 94 H 21 96 12/03/18 19:30 91 H 13 98 12/03/18 19:15 92 H 12 97 12/03/18 19:08 93 H 20 119/83 98 12/03/18 19:00 102 H 13 119/83 97 12/03/18 18:45 86 21 98 12/03/18 18:31 90 22 98 12/03/18 18:30 96 H 102 H 16 128/80 128/80 98 12/03/18 18:21 98 H 12 92 12/03/18 18:20 88 15 124/73 93 12/03/18 18:10 88 L 12/03/18 18:03 36.8 C 88 94 H 22 124/73 128/80 90 Laboratory Results Laboratory Results WBC 14.66 K/uL (4.8-10.8) H 12/03/18 19:04 RBC 4.38 M/uL (4.7-6.1) L 12/03/18 19:04 Hgb 13.8 g/dL (14.0-18.0) L 12/03/18 19:04 Hct 42.0 % (42-52) 12/03/18 19:04 MCV 95.9 fL (80-100) 12/03/18 19:04 MCH 31.5 pg (25-34) 12/03/18 19:04 MCHC 32.9 g/dL (32-36) 12/03/18 19:04 RDW Std Deviation 46.4 fL (36.4-46.3) H 12/03/18 19:04 RDW Coeff of Heath 13.2 % (11.5-14.5) 12/03/18 19:04 Plt Count 333 K/uL (130-400) 12/03/18 19:04 MPV 10.0 fL (7.4-10.4) 12/03/18 19:04 Immature Gran % (Auto) 0.3 % 12/03/18 19:04 Neut % (Auto) 80.7 % 12/03/18: Lymph % (Auto) 10.8 % 12/03/18:04 Schley % (Auto) 7.2 % 12/03/18 19:04 Eos % (Auto) 0.7 % 12/03/18 19:04 Baso % (Auto) 0.3 % 12/03/18 19:04 Immature Gran # (Auto) 0.05 K/uL (0.00-0.02) H 12/03/18 19:04 Neut # (Auto) 11.82 K/uL (1.4-6.5) H 12/03/18 19:04 Lymph # (Auto) 1.59 K/uL (1.2-3.4) 12/03/18 19:04 Schley # (Auto) 1.06 K/uL (0.11-0.59) H 12/03/18 19:04 Eos # (Auto) 0.10 K/uL (0-0.5) 12/03/18:04 Baso # (Auto) 0.04 K/uL (0-0.2) 12/03/18 19:04 ESR 56 mm/hr (0-14) H 12/03/18 19:04 PT 11.4 Seconds (9.0-12.0) 12/03/18 19:04 INR 1.1 (0.9-1.1) 12/03/18 19:04 APTT 30.1 Seconds (21.0-31.0) 12/03/18 19:04 PTT Ratio 1.1 12/03/18 19:04 VBG pH 7.35 (7.36-7.41) L 12/03/18 19:04 VBG pCO2 64 mmHg (38-50) H 12/03/18 19:04 VBG pO2 19 mmHg 12/03/18 19:04 VBG HCO3 34 mmol/L 12/03/18 19:04 VBG O2 Saturation < 60.0 % 12/03/18 19:04 VBG Base Excess 6.2 mEq/L 12/03/18 19:04 Barometric Pressure 731.0 mm/Hg 12/03/18 19:04 Sodium 138 mmol/L (136-145) 12/03/18 19:04 Potassium 4.4 mmol/L (3.5-5.1) 12/03/18 19:04 Chloride 101 mmol/L (98-107) 12/03/18 19:04 Carbon Dioxide 34 mmol/L (21-32) H 12/03/18 19:04 Anion Gap 3.0 (3-11) 12/03/18 19:04 BUN 17 mg/dl (7-18) 12/03/18 19:04 Creatinine 1.07 mg/dl (0.6-1.4) 12/03/18 19:04 Est Cr Clr Drug Dosing 53.5 ml/min 12/03/18 19:04 Est GFR ( Amer) 74.5 12/03/18 19:04 Est GFR (Non-Af Amer) 64.3 12/03/18 19:04 BUN/Creatinine Ratio 16.3 (10-20) 12/03/18 19:04 Glucose 94 mg/dl (70-99) 12/03/18 19:04 Lactate 1.7 mmol/L (0.4-2.0) 12/03/18 19:04 Calcium 9.1 mg/dl (8.5-10.1) 12/03/18 19:04 Magnesium 2.2 mg/dl (1.8-2.4) 12/03/18 19:04 Total Bilirubin 0.6 mg/dl (0.2-1) 12/03/18 19:04 AST 20 U/L (15-37) 12/03/18 19:04 ALT 41 U/L (12-78) 12/03/18 19:04 Alkaline Phosphatase 130 U/L (45-117) H 12/03/18 19:04 Troponin I < 0.015 ng/ml (0-0.045) 12/03/18 19:04 C-Reactive Protein 2.53 mg/dl (0-0.29) H 12/03/18 19:04 NT-Pro-B Natriuret Pep 1076 pg/ml (0-1800) 12/03/18 19:04 Total Protein 7.3 gm/dl (6.4-8.2) 12/03/18 19:04 Albumin 3.0 gm/dl (3.4-5.0) L 12/03/18 19:04 Globulin 4.3 gm/dl (2.5-4.0) H 12/03/18 19:04 Albumin/Globulin Ratio 0.7 (0.9-2) L 12/03/18 19:04 Procalcitonin < 0.05 ng/ml (0-0.5) 12/03/18 19:04 Digoxin 0.4 ng/ml (0.8-2.0) L 12/03/18 19:09 Influenza Type A (PCR) Neg for Influ A (Neg) 12/03/18 18:50 Influenza Type B (PCR) Neg for Influ B (Neg) 12/03/18 18:50 Diagnostic Findings Chest x-ray : No acute process. Emphysematous change. EKG as per my interpretation : Rate 90, A. fib, chronic left bundle branch block, PVCs
[2018-12-03] MEDS ORDERED: OPTIRAY 320 125ml IV PRN (23:40)
[2018-12-04] MEDS ORDERED: TRAMADOL HCL 50 MG TABLET PO PRN (00:48)
[2018-12-04] MEDS ORDERED: ACETAMINOPHEN 325 MG TAB PO PRN (00:48)
[2018-12-04] MEDS ORDERED: PROMETHAZINE HCL 12.5 MG in SODIUM CHLORIDE 0.9% 50 ML IV PRN (00:48)
[2018-12-04] MEDS ORDERED: SODIUM CHLORIDE 0.9% 1000ML 1,000 ML IV ONE (00:48)
[2018-12-04] MEDS ORDERED: KETOROLAC TROMETHAMINE 15 MG/ML VIAL IV STA (01:00)
[2018-12-04] MEDS ORDERED: XOPENEX/ATROVENT 1.25mg/0.5MG NEB COMBO NEB STA (01:07)
[2018-12-04] MEDS ORDERED: ERTAPENEM CONSULT ACTIVE PRN (01:18)
[2018-12-04] MEDS ORDERED: LEVALBUTEROL 1.25MG/0.5ML NEB INH STA (01:18)
[2018-12-04] MEDS ORDERED: IPRATROPIUM BROMIDE NEB SOLN 0.02% 2.5 ML VIAL INH STA (01:18)
[2018-12-04] MEDS ORDERED: ERTAPENEM SODIUM 1,000 MG in SODIUM CHLORIDE 0.9% 50 ML IV SCH (01:30)
[2018-12-04] MEDS: LEVALBUTEROL 1.25MG/0.5ML NEB INH SCH ×3 (07:00→19:25)
[2018-12-04] MEDS ORDERED: XOPENEX/ATROVENT 1.25mg/0.5MG NEB COMBO NEB SCH (07:00)
[2018-12-04] MEDS: IPRATROPIUM BROMIDE NEB SOLN 0.02% 2.5 ML VIAL INH SCH ×3 (07:00→19:26)
--- NOTE | 2018-12-04 07:07 | CT Scan Report ---
CT angio chest PE protocol CT DOSE: 921.38 mGycm HISTORY: 83 years-old Male with PE. Acute shortness of breath TECHNIQUE: Multiple CTA images of the chest were obtained after the intravenous administration of 118 ml Optiray 320. Coronal and sagittal MIPS were obtained from the axial data set and were submitted for review. All measurements were obtained according to NASCET criteria. A dose lowering technique w as utilized adhering to the principles of ALARA. COMPARISON: Chest CT 05/25/2017. FINDINGS: CTA: Motion degraded exam. Heart is upper limits of normal in size. No pericardial effusion. Extensive cor onary arterial calcifications. The left heart structures and thoracic aorta are not well opacified se condary to contrast bolus timing. Ascending thoracic aorta measures the upper limits of normal at 3.9 x 3.9 cm. No mediastinal hematoma or dissection identified. Dilation of the main pulmonary artery ma y reflect underlying pulmonary arterial hypertension. Reflux of contrast into the IVC and hepatic vei ns. The lobar, segmental and subsegmental pulmonary arterial branches are suboptimally visualized sec ondary to contrast bolus timing. No central pulmonary emboli are identified. CT CHEST: No adenopathy by CT size criteria. The inferior left lung base is only partially imaged. No pneumotho rax or definite pleural effusion. Patchy consolidative opacities of the right lower lobe are most pro nounced in the basal segments. Emphysema with unchanged biapical pleural-parenchymal scarring. Unchan ged 1.2 x 0.6 cm solid pulmonary nodule of the left lung apex. There are a few additional unchanged s cattered subcentimeter pulmonary nodules bilaterally which are better seen on comparison study second elisabeth to respiratory motion artifact. Prior granulomatous disease. A bronchial secretions are noted jaya ng with bilateral bronchial wall thickening. No acute process of the imaged upper abdomen. Demineralized appearance of the bones. Degenerative miya nges of the shoulders and spine. IMPRESSION: 1. Motion degraded exam. No central pulmonary emboli identified. 3. Patchy consolidative opacities of the right lower lobe, most pronounced within the basal segments suggestive of pneumonia or aspiration pneumonitis. Correlate clinically. 4. Emphysema. 5. Bilateral bronchial wall thickening with tracheobronchial secretions. 6. Unchanged bilateral pulmonary nodules as above. Please refer to below summary of Fleischner criteria recommendations for follow-up of incidental CT n suyapa Mitchell, Guidelines for management of small pulmonary nodules detected on CT scans: A sta tement from the Fleischner Society, Radiology 237: [phone].) SOLID NODULES Multiple nodules size: <6 mm * Low risk patients: no routine follow-up * high risk patients: optional CT at 12 months Multiple nodules size: 6-8 mm * Low risk patients: follow-up at 3-6 months, then consider further follow-up at 18-24 months * high risk patients: follow-up at 3-6 months, then at 18-24 months if no change Multiple nodules size: >8 mm * Low risk patients: follow-up at 3-6 months, then consider further follow-up at 18-24 months * high risk patients: follow-up at 3-6 months, then at 18-24 months if no change Note: newly detected indeterminate nodule in persons 35 years of age or older. * Low risk patients: minimal or absent history of smoking and/or other known risk factors * high risk patients: history of smoking or of other known risk factors (e.g. first degree relative with lung cancer, or exposure to asbestos, radon, uranium) * if a nodule up to 8 mm is partly solid or is ground glass further follow-up is required after 24 m onths to exclude possible slow growing adenocarcinoma (ALEAH) The above report was generated using voice recognition software. It may contain grammatical, syntax o r spelling errors. Electronically signed by: Bruce Gallegos M.D. 12/04/2018 7:05 AM
[2018-12-04 07:20] LABS: Basophils # (auto) 0.04 K/uL (0-0.2); Basophils % (auto) 0.4 %; Eosinophils % (auto) 2.9 %; Hematocrit (blood only) 41.3 % (42-52); Hemoglobin 13.5 g/dL (14.0-18.0); Immature Granulocytes # (auto) 0.03 K/uL (0.00-0.02); Immature Granulocytes % (auto) 0.3 %; Lymphocytes # (auto) 1.49 K/uL (1.2-3.4); Lymphocytes % (auto) 14.3 %; Mean Corpuscular Hemoglobin 31.1 pg (25-34); Mean Corpuscular Hgb Conc 32.7 g/dL (32-36); Mean Corpuscular Volume 95.2 fL (80-100); Mean Platelet Volume 9.7 fL (7.4-10.4); Monocytes # (auto) 1.24 K/uL (0.11-0.59); Monocytes % (auto) 11.9 %; Neutrophils # (auto) 7.29 K/uL (1.4-6.5); Neutrophils % (auto) 70.2 %; Platelet Count 282 K/uL (130-400); RDW Coefficient of Variation 13.2 % (11.5-14.5); RDW Standard Deviation 45.7 fL (36.4-46.3); Red Blood Count 4.34 M/uL (4.7-6.1); White Blood Count 10.39 K/uL (4.8-10.8)
[2018-12-04 07:23] LABS: Base Excess VBG 5.8 mEq/L; HCO3 VBG 33 mmol/L; PCO2 VBG 62 mmHg (38-50); PO2 VBG 20 mmHg; pH VBG 7.35 (7.36-7.41)
[2018-12-04 07:26] LABS: Oxygen Saturation VBG < 60.0 %
[2018-12-04 07:53] LABS: BUN Creatinine Ratio 14.8 (10-20); Calcium 9.3 mg/dl (8.5-10.1); Creatinine Clr Calc Pharmacy 58.2 ml/min; Est GFR (African American) 74.5; Est GFR (Non-African American) 64.3; Potassium 4.9 mmol/L (3.5-5.1)
[2018-12-04] MEDS ORDERED: CEFEPIME CONSULT ACTIVE PRN (08:32)
[2018-12-04] MEDS: VENLAFAXINE HCL XR 37.5 MG CAPXR PO SCH (08:39)
[2018-12-04] MEDS: DONEPEZIL HCL 10 MG TAB PO SCH (08:39)
[2018-12-04] MEDS: MEMANTINE HCL 10 MG TAB PO SCH (08:39)
[2018-12-04] MEDS: VENLAFAXINE HCL XR 75 MG CAPXR PO SCH (08:39)
[2018-12-04] MEDS: predniSONE 20 MG TAB PO SCH (08:40)
--- NOTE | 2018-12-04 08:43 | Hospitalist Progress Note ---
Date of Service December 04, 2018 Assessment & Plan (1) Acute hypoxemic respiratory failure: Secondary to right lower lobe pneumonia, possible healthcare associated versus aspiration Possible mild COPD exacerbation Possible sepsis -- CT chest: IMPRESSION: 1. Motion degraded exam. No central pulmonary emboli identified. 3. Patchy consolidative opacities of the right lower lobe, most pronounced within the basal segments suggestive of pneumonia or aspiration pneumonitis. Correlate clinically. 4. Emphysema. 5. Bilateral bronchial wall thickening with tracheobronchial secretions. 6. Unchanged bilateral pulmonary nodules as above. -- Check sputum culture Check nasal MRSA Blood cultures pending Lactic acid normal -- Changed to cefepime for pseudomonal coverage Continue nebs Start flutter valve, hypertonic saline nebs, chest physiotherapy/vest therapy --Wean off oxygen accordingly Chronic Diastolic Congestive heart failure, EF of 55-59% TTE 2017) Aortic stenosis --gentle IV fluids AFib --Continue digoxin rate controlled, off anticoagulation secondary to fall risk and subdural hematoma Probable bronchogenic neoplasm as per records --Patient follow-up Hospice patient, patient family agreeable to confinement for medical management for now recurrent subdural hematoma status post surgery --No Lovenox or heparin hypertension -- BP stable today dementia --Continue usual medications DVT prophylaxis. SCDs DNR as per prior directives. Disposition pending Subjective Follow-up for possible sepsis secondary to pneumonia, hypoxia Seen resting in bed, sleeping but easily arousable with verbal stimuli Patient seems to be drowsy but tries to answer with phrases Patient appears confused He denies shortness of breath, states his coughing is better Denies chest pain or abdominal pain No other symptoms Full review of systems difficult to assess as patient has baseline confusion, secondary to dementia Review of Systems Review of Systems: Unobtainable due to cognitive status Physical Exam Physical Exam: General- oriented x 0, not in distress, speaks in phrases with no effort or accessory muscle use Head- atraumatic Eyes- PERRL, EOMI, anicteric ENT- oropharynx clear Neck- supple, no JVD, no adenopathy, no thyromegaly; carotids +2/2, no bruits appreciated Lungs-mild rales/rhonchi at the right base, no wheezing, clear on the left Heart- normal rate, irregularly irregular rhythm; no murmur, no gallop, no rub appreciated Abdomen- normal bowel sounds, nondistended, soft, nontender, no masses or hepatosplenomegaly Extremities- no pretibial edema, no calf tenderness; peripheral pulses intact Neuro- alert, oriented x 0; CN 2-12 grossly intact; motor 5/5 bi laterally;sensation 100% on all extremities; no other gross focal neurologic deficits Skin- warm & dry Results & Data Vital Signs (Past 12 Hours) Vital Signs Temp Pulse Pulse Pulse Resp BP BP 12/04/18 08:10 93 H 12/04/18 07:35 36.0 C L 92 H 16 121/82 12/04/18 07:02 90 12/04/18 04:00 36.5 C 69 22 116/77 12/04/18 02:46 87 12/04/18 01:42 86 18 12/04/18 01:26 12/03/18 23:55 36.7 C 87 20 12/03/18 22:50 89 22 94/50 L 12/03/18 22:38 99 H 19 12/03/18 22:36 92 H 16 94/70 L 12/03/18 22:00 99 H 106/73 12/03/18 21:30 88 105/70 12/03/18 21:00 96 H 111/69 12/03/18 20:54 88 22 BP Pulse Ox Pulse Ox 12/04/18 08:10 12/04/18 07:35 97 12/04/18 07:02 93 12/04/18 04:00 92 12/04/18 02:46 12/04/18 01:42 87 L 12/04/18 01:26 94 12/03/18 23:55 105/71 94 12/03/18 22:50 98 12/03/18 22:38 99 12/03/18 22:36 99 12/03/18 22:00 96 12/03/18 21:30 97 12/03/18 21:00 97 12/03/18 20:54 97 Laboratory Results Laboratory Results - last 24 hr 12/03/18 12/03/18 12/03/18 18:50 19:04 19:04 WBC 14.66 H RBC 4.38 L Hgb 13.8 L Hct 42.0 MCV 95.9 MCH 31.5 MCHC 32.9 RDW Std Deviation 46.4 H RDW Coeff of Heath 13.2 Plt Count 333 MPV 10.0 Immature Gran % (Auto) 0.3 Neut % (Auto) 80.7 Lymph % (Auto) 10.8 Lawrence % (Auto) 7.2 Eos % (Auto) 0.7 Baso % (Auto) 0.3 Immature Gran # (Auto) 0.05 H Neut # (Auto) 11.82 H Lymph # (Auto) 1.59 Lawrence # (Auto) 1.06 H Eos # (Auto) 0.10 Baso # (Auto) 0.04 ESR 56 H PT INR APTT PTT Ratio VBG pH VBG pCO2 VBG pO2 VBG HCO3 VBG O2 Saturation VBG Base Excess Barometric Pressure Sodium Potassium Chloride Carbon Dioxide Anion Gap BUN Creatinine Est Cr Clr Drug Dosing Est GFR ( Amer) Est GFR (Non-Af Amer) BUN/Creatinine Ratio Glucose Lactate Calcium Magnesium Total Bilirubin AST ALT Alkaline Phosphatase Troponin I C-Reactive Protein NT-Pro-B Natriuret Pep Total Protein Albumin Globulin Albumin/Globulin Ratio Procalcitonin Digoxin Influenza Type A (PCR) Neg for Influ A Influenza Type B (PCR) Neg for Influ B 12/03/18 12/03/18 12/03/18 19:04 19:04 19:04 WBC RBC Hgb Hct MCV MCH MCHC RDW Std Deviation RDW Coeff of Heath Plt Count MPV Immature Gran % (Auto) Neut % (Auto) Lymph % (Auto) [place] % (Auto) Eos % (Auto) Baso % (Auto) Immature Gran # (Auto) Neut # (Auto) Lymph # (Auto) [place] # (Auto) Eos # (Auto) Baso # (Auto) ESR PT 11.4 INR 1.1 APTT 30.1 PTT Ratio 1.1 VBG pH VBG pCO2 VBG pO2 VBG HCO3 VBG O2 Saturation VBG Base Excess Barometric Pressure Sodium 138 Potassium 4.4 Chloride 101 Carbon Dioxide 34 H Anion Gap 3.0 BUN 17 Creatinine 1.07 Est Cr Clr Drug Dosing 53.5 Est GFR ( Amer) 74.5 Est GFR (Non-Af Amer) 64.3 BUN/Creatinine Ratio 16.3 Glucose 94 Lactate 1.7 Calcium 9.1 Magnesium 2.2 Total Bilirubin 0.6 AST 20 ALT 41 Alkaline Phosphatase 130 H Troponin I < 0.015 C-Reactive Protein 2.53 H NT-Pro-B Natriuret Pep 1076 Total Protein 7.3 Albumin 3.0 L Globulin 4.3 H Albumin/Globulin Ratio 0.7 L Procalcitonin Digoxin Influenza Type A (PCR) Influenza Type B (PCR) 12/03/18 12/03/18 12/03/18 19:04 19:04 19:09 WBC RBC Hgb Hct MCV MCH MCHC RDW Std Deviation RDW Coeff of Heath Plt Count MPV Immature Gran % (Auto) Neut % (Auto) Lymph % (Auto) [place] % (Auto) Eos % (Auto) Baso % (Auto) Immature Gran # (Auto) Neut # (Auto) Lymph # (Auto) [place] # (Auto) Eos # (Auto) Baso # (Auto) ESR PT INR APTT PTT Ratio VBG pH 7.35 L VBG pCO2 64 H VBG pO2 19 VBG HCO3 34 VBG O2 Saturation < 60.0 VBG Base Excess 6.2 Barometric Pressure 731.0 Sodium Potassium Chloride Carbon Dioxide Anion Gap BUN Creatinine Est Cr Clr Drug Dosing Est GFR ( Amer) Est GFR (Non-Af Amer) BUN/Creatinine Ratio Glucose Lactate Calcium Magnesium Total Bilirubin AST ALT Alkaline Phosphatase Troponin I C-Reactive Protein NT-Pro-B Natriuret Pep Total Protein Albumin Globulin Albumin/Globulin Ratio Procalcitonin < 0.05 Digoxin 0.4 L Influenza Type A (PCR) Influenza Type B (PCR) 12/04/18 12/04/18 12/04/18 07:10 07:10 07:10 WBC 10.39 RBC 4.34 L Hgb 13.5 L Hct 41.3 L MCV 95.2 MCH 31.1 MCHC 32.7 RDW Std Deviation 45.7 RDW Coeff of Heath 13.2 Plt Count 282 MPV 9.7 Immature Gran % (Auto) 0.3 Neut % (Auto) 70.2 Lymph % (Auto) 14.3 Lawrence % (Auto) 11.9 Eos % (Auto) 2.9 Baso % (Auto) 0.4 Immature Gran # (Auto) 0.03 H Neut # (Auto) 7.29 H Lymph # (Auto) 1.49 Lawrence # (Auto) 1.24 H Eos # (Auto) 0.30 Baso # (Auto) 0.04 ESR PT INR APTT PTT Ratio VBG pH 7.35 L VBG pCO2 62 H VBG pO2 20 VBG HCO3 33 VBG O2 Saturation < 60.0 VBG Base Excess 5.8 Barometric Pressure 735.4 Sodium 139 Potassium 4.9 Chloride 102 Carbon Dioxide 34 H Anion Gap 3.0 BUN 16 Creatinine 1.07 Est Cr Clr Drug Dosing 58.2 Est GFR ( Amer) 74.5 Est GFR (Non-Af Amer) 64.3 BUN/Creatinine Ratio 14.8 Glucose 78 Lactate Calcium 9.3 Magnesium Total Bilirubin AST ALT Alkaline Phosphatase Troponin I C-Reactive Protein NT-Pro-B Natriuret Pep Total Protein Albumin Globulin Albumin/Globulin Ratio Procalcitonin Digoxin Influenza Type A (PCR) Influenza Type B (PCR)
[2018-12-04] MEDS: CEFEPIME 2,000 MG in SYRINGE 0 ML IV SCH ×2 (08:58→20:10)
[2018-12-04] MEDS ORDERED: DIGOXIN 0.125 MG TAB PO SCH (09:00)
[2018-12-04] MEDS ORDERED: NON-FORMULARY MEDICATION (Food Supplemt, Lactose-Reduced [Boost] 1 EA) PO SCH (09:00)
[2018-12-04] MEDS ORDERED: ENOXAPARIN INJ 30 MG/0.3 ML SYR SQ SCH (09:00)
[2018-12-04] MEDS: SODIUM CHLOR 7% 4 ML NEB NEB SCH ×2 (13:11→19:25)
[2018-12-04] MEDS: DIGOXIN 0.125 MG TAB PO SCH (15:50)
--- NOTE | 2018-12-04 17:50 | Emergency Department Note ---
Entered by Francisco Soni acting as a scribe for Rafiq Ray DO History of Present Illness General Chief complaint: Illness Source: RN notes reviewed Mode of arrival: EMS Limitations: clinical acuity History of Present Illness Onset (ago): day(s) (couple days) Maximum Pain Intensity: 0 The patient is a 83 year old male who presents to the Emergency Room. Nursing states the patient has had a fever and SOB for a few days. Nursing states the patient has dementia. HPI is limited secondary to mental acuity. Home Medications Home Medications Medication Instructions Recorded Confirmed Type acetaminophen [Tylenol] 650 mg PO Q4 PRN 12/03/18 12/03/18 History albuterol sulfate 2.5 mg INHALATION Q4 PRN 12/03/18 12/03/18 History buspirone 5 mg PO .Q24HRS PRN 12/03/18 12/03/18 History buspirone 5 mg PO BID 12/03/18 12/03/18 History dextromethorphan-guaifenesin 10 ml PO Q4 PRN 12/03/18 12/03/18 History [Tussin DM] digoxin [Lanoxin] 125 mcg PO DAILY 12/03/18 12/03/18 History diphenoxylate-atropine [Lomotil] 2 tab PO Q6H PRN 12/03/18 12/03/18 History donepezil [Aricept] 10 mg PO DAILY 12/03/18 12/03/18 History food supplemt, lactose-reduced 1 ea PO BID 12/03/18 12/03/18 History [Boost] furosemide [Lasix] 20 mg PO DAILY 12/03/18 12/03/18 History lorazepam [Ativan] 0.5 mg PO BID 12/03/18 12/03/18 History melatonin 3 mg PO HS 12/03/18 12/03/18 History memantine [Namenda] 10 mg PO DAILY 12/03/18 12/03/18 History mirtazapine [Remeron] 15 mg PO HS 12/03/18 12/03/18 History montelukast [Singulair] 10 mg PO HS 12/03/18 12/03/18 History simvastatin [Zocor] 20 mg PO QPM 12/03/18 12/03/18 History venlafaxine [Effexor XR] 37.5 mg PO QAM 12/03/18 12/03/18 History venlafaxine [Effexor XR] 75 mg PO QAM 12/03/18 12/03/18 History Allergies Allergy/AdvReac Type Severity Reaction Status Date / Time walnut Allergy Severe GI SYMPTOMS Verified 09/03/18 06:12 Penicillins Allergy Intermediate RASH Verified 12/03/18 19:30 potato Allergy Unknown GI SYMPTOMS Verified 12/03/18 19:30 Past Med/Surg History Medical History Cerebral hemorrhage Alzheimer disease (Chronic) Atrial fibrillation (Chronic) Encephalopathy Family History Other Family history non-contributory Social History Preferred Language: Greenlandic Communication Ability: Impaired Beliefs That Will Affect Care: None Current Living Situation: Personal Care Facility Current Living Situation Comment: [facility] Feels Safe at Home: Yes Smoking Status: Former smoker Hx Alcohol Use: No Hx Substance Use: No Review of Systems See HPI for pertinent positives & negatives. and A total of 10 systems reviewed and were otherwise negative Physical Exam Vital Signs Vital Signs - 24 hr 12/03/18 18:03 12/03/18 18:10 12/03/18 18:20 Temperature 36.8 C Temperature Source Oral Sepsis Recent Fever Within 48 Hours Yes Sepsis New/Unexplained Change in Mental Status No Sepsis Action Taken by Nursing Physician Notified Oxygen Flow Rate - Titration 3 Pulse Oximetry Post Tiitration 94 Pulse Rate 88 88 Pulse Rate [Apical] 94 H Pulse Rate from SpO2 Sensor 92 H Pulse Rhythm Irregular Pulse Rhythm [Apical] Irregular Pulse Strength Normal Respiratory Rate 22 15 Respiratory Effort / Characteristics Non-Labored Spontaneous Respiratory Depth Normal Respiratory Pattern Regular Blood Pressure 124/73 124/73 Blood Pressure [Right Arm] 128/80 Blood Pressure Mean 90 90 Blood Pressure Mean [Right Arm] 96 Blood Pressure Position Lying Blood Pressure Position [Right Arm] Lying Pulse Oximetry 90 88 L 93 Oxygen Delivery Method Room Air Room Air Nasal Cannula Oxygen Flow Rate 0 3 12/03/18 18:21 12/03/18 18:30 12/03/18 18:31 Temperature Temperature Source Sepsis Recent Fever Within 48 Hours Sepsis New/Unexplained Change in Mental Status Sepsis Action Taken by Nursing Oxygen Flow Rate - Titration Pulse Oximetry Post Tiitration Pulse Rate 98 H 96 H 90 Pulse Rate [Apical] 102 H Pulse Rate from SpO2 Sensor 99 H 100 H 96 H Pulse Rhythm Irregular Pulse Rhythm [Apical] Irregular Pulse Strength Respiratory Rate 12 16 22 Respiratory Effort / Characteristics Non-Labored Spontaneous Respiratory Depth Normal Respiratory Pattern Regular Blood Pressure 128/80 Blood Pressure [Right Arm] 128/80 Blood Pressure Mean 96 Blood Pressure Mean [Right Arm] 96 Blood Pressure Position Blood Pressure Position [Right Arm] Lying Pulse Oximetry 92 98 98 Oxygen Delivery Method Nasal Cannula Nasal Cannula Nasal Cannula Oxygen Flow Rate 3 3 3 12/03/18 18:45 12/03/18 19:00 12/03/18 19:08 Temperature Temperature Source Sepsis Recent Fever Within 48 Hours Sepsis New/Unexplained Change in Mental Status Sepsis Action Taken by Nursing Oxygen Flow Rate - Titration Pulse Oximetry Post Tiitration Pulse Rate 86 102 H 93 H Pulse Rate [Apical] Pulse Rate from SpO2 Sensor 92 H 99 H 95 H Pulse Rhythm Pulse Rhythm [Apical] Pulse Strength Respiratory Rate 21 13 20 Respiratory Effort / Characteristics Respiratory Depth Respiratory Pattern Blood Pressure 119/83 119/83 Blood Pressure [Right Arm] Blood Pressure Mean 95 95 Blood Pressure Mean [Right Arm] Blood Pressure Position Blood Pressure Position [Right Arm] Pulse Oximetry 98 97 98 Oxygen Delivery Method Nasal Cannula Nasal Cannula Nasal Cannula Oxygen Flow Rate 3 3 3 12/03/18 19:15 12/03/18 19:30 12/03/18 19:45 Temperature Temperature Source Sepsis Recent Fever Within 48 Hours Sepsis New/Unexplained Change in Mental Status Sepsis Action Taken by Nursing Oxygen Flow Rate - Titration Pulse Oximetry Post Tiitration Pulse Rate 92 H 91 H 94 H Pulse Rate [Apical] Pulse Rate from SpO2 Sensor 91 H 88 99 H Pulse Rhythm Pulse Rhythm [Apical] Pulse Strength Respiratory Rate 12 13 21 Respiratory Effort / Characteristics Respiratory Depth Respiratory Pattern Blood Pressure Blood Pressure [Right Arm] Blood Pressure Mean Blood Pressure Mean [Right Arm] Blood Pressure Position Blood Pressure Position [Right Arm] Pulse Oximetry 97 98 96 Oxygen Delivery Method Nasal Cannula Oxygen Flow Rate 3 12/03/18 19:52 12/03/18 20:00 12/03/18 20:30 Temperature Temperature Source Sepsis Recent Fever Within 48 Hours Sepsis New/Unexplained Change in Mental Status Sepsis Action Taken by Nursing Oxygen Flow Rate - Titration Pulse Oximetry Post Tiitration Pulse Rate 93 H 91 H 88 Pulse Rate [Apical] Pulse Rate from SpO2 Sensor 94 H 95 H 92 H Pulse Rhythm Pulse Rhythm [Apical] Pulse Strength Respiratory Rate 17 20 Respiratory Effort / Characteristics Respiratory Depth Respiratory Pattern Blood Pressure 123/79 108/74 114/81 Blood Pressure [Right Arm] Blood Pressure Mean 93 85 92 Blood Pressure Mean [Right Arm] Blood Pressure Position Blood Pressure Position [Right Arm] Pulse Oximetry 97 96 98 Oxygen Delivery Method Nasal Cannula Nasal Cannula Oxygen Flow Rate 3 3 12/03/18 20:54 12/03/18 21:00 Temperature Temperature Source Sepsis Recent Fever Within 48 Hours Sepsis New/Unexplained Change in Mental Status Sepsis Action Taken by Nursing Oxygen Flow Rate - Titration Pulse Oximetry Post Tiitration Pulse Rate 96 H Pulse Rate [Apical] 88 Pulse Rate from SpO2 Sensor 102 H Pulse Rhythm Pulse Rhythm [Apical] Pulse Strength Respiratory Rate 22 Respiratory Effort / Characteristics Non-Labored Spontaneous Respiratory Depth Respiratory Pattern Blood Pressure 111/69 Blood Pressure [Right Arm] Blood Pressure Mean 83 Blood Pressure Mean [Right Arm] Blood Pressure Position Blood Pressure Position [Right Arm] Pulse Oximetry 97 97 Oxygen Delivery Method Nasal Cannula Nasal Cannula Oxygen Flow Rate 3 3 GENERAL: Patient is awake, alert, and in no acute distress.Patient is resting comfortably and showing no signs of anxiety EYES: The conjunctivae are clear. The pupils are round and reactive. EARS, NOSE, MOUTH AND THROAT: The nose is without any evidence of any deformity. Mucous membranes are moist.Tongue is midline NECK: The neck is nontender and supple. RESPIRATORY: Normal respiratory effort is noted. There is no evidence of wheezing rhonchi or rales to auscultation. CARDIOVASCULAR: Regular rate and rhythm noted. There no murmurs rubs or gallops normal S1 normal S2 GASTROINTESTINAL: The abdomen is soft. Bowel sounds are present in all quadrants. Abdomen is nontender. [BACK: No midline tenderness or or step-off noted range of motion in flexion extension as well as rotation no signs of muscle spasm noted.] [PELVIS: The Pelvis is stable. No tenderness to palpation is noted.] MUSCULOSKELETAL/EXTREMITIES: There is no evidence of gross deformity. Full range of motion is noted in the hips and shoulders. SKIN: There is no obvious evidence of any rash. There are no petechiae, pallor or cyanosis noted. NEUROLOGIC: Patient is awake alert and oriented x3. [Strength is symmetric. Patellar reflexes are 2+ bilaterally.] Course 1835: The patient was evaluated in room C4, and a complete history and physical examination were performed. 2032: I reevaluated the patient. I updated the patient on his labs and imaging results. 2034: I discussed the patient's case with Dr. Vinnie Aguiar - [facility]. He will evaluate the patient for further management Administered Medications Buspirone HCl (Buspar) 5 mg PO BID [facility] Stop: 01/03/19 08:59 Last Admin: 12/04/18 08:39 Dose: 5 mg Documented by: [id number] Digoxin (Lanoxin) 0.125 mg PO DAILY@1600 [facility] Stop: 01/03/19 15:59 Last Admin: 12/04/18 15:50 Dose: 0.125 mg Documented by: [id number] Donepezil HCl (Aricept) 10 mg PO DAILY [facility] Stop: 01/03/19 08:59 Last Admin: 12/04/18 08:39 Dose: 10 mg Documented by: [id number] Sodium Chloride (Nss 1000ml) 1,000 mls @ 50 mls/hr IV .Q20H ONE Stop: 12/04/18 20:47 Last Admin: 12/04/18 01:10 Dose: 50 mls/hr Documented by: [id number] Cefepime HCl 2,000 mg/ Syringe 12.5 mls @ 5 mls/min IV Q12H [facility]; Protocol Stop: 12/11/18 08:59 Last Admin: 12/04/18 08:58 Dose: 5 mls/min Documented by: [id number] Ipratropium Heaters (Atrovent 0.02% 0.5mg/2.5ml) 0.5 mg INH Q6R [facility] Stop: 01/03/19 06:59 Last Admin: 12/04/18 13:10 Dose: 0.5 mg Documented by: [id number] Admin: 12/04/18 07:00 Dose: 0.5 mg Documented by: [id number] Levalbuterol HCl (Xopenex 1.25mg/0.5ml [facility]) 1.25 mg INH Q6R [facility] Stop: 01/03/19 06:59 Last Admin: 12/04/18 13:10 Dose: 1.25 mg Documented by: [id number] Admin: 12/04/18 07:00 Dose: 1.25 mg Documented by: [id number] Memantine (Namenda) 10 mg PO DAILY [facility] Stop: 01/03/19 08:59 Last Admin: 12/04/18 08:39 Dose: 10 mg Documented by: [id number] Prednisone (Prednisone) 40 mg PO DAILY [facility] Stop: 12/08/18 08:59 Last Admin: 12/04/18 08:40 Dose: 40 mg Documented by: [id number] Sodium Chloride (Sodium Chlor 7% Neb Solution) 4 ml NEB BIDR [facility] Stop: 01/03/19 08:19 Last Admin: 12/04/18 13:11 Dose: Not Given Documented by: [id number] Venlafaxine HCl (Effexor Extended Release) 75 mg PO QAM [facility] Stop: 01/03/19 08:59 Last Admin: 12/04/18 08:39 Dose: 75 mg Documented by: [id number] Venlafaxine HCl (Effexor Extended Release) 37.5 mg PO QAM [facility] Stop: 01/03/19 08:59 Last Admin: 12/04/18 08:39 Dose: 37.5 mg Documented by: [id number] Discontinued Medications Albuterol (Duoneb) 3 ml NEB NOW STA Stop: 12/03/18 20:45 Last Admin: 12/03/18 20:53 Dose: 3 ml Documented by: [id number] Levofloxacin/Dextrose (Levaquin/D5w) 750 mg in 150 mls @ 100 mls/hr IV NOW STA Stop: 12/03/18 22:01 Last Infusion: 12/03/18 22:15 Dose: 0 mls/hr Documented by: [id number] Admin: 12/03/18 20:46 Dose: 100 mls/hr Documented by: [id number] Ertapenem 1,000 mg/ Sodium (Chloride) 60 mls @ 100 mls/hr IV Q24H [facility]; Protocol Stop: 12/11/18 01:29 Last Infusion: 12/04/18 02:47 Dose: 0 mls/hr Documented by: [id number] Admin: 12/04/18 02:09 Dose: 100 mls/hr Documented by: [id number] Ioversol (Optiray 320 125ml) 118 ml IV ONCE PRN PRN Reason: Interaction Checking Stop: 12/07/18 23:39 Last Admin: 12/03/18 23:40 Dose: 118 ml Documented by: [id number] Ipratropium Heaters (Atrovent 0.02% 0.5mg/2.5ml) 0.5 mg INH ONE STA Stop: 12/04/18 01:19 Last Admin: 12/04/18 01:40 Dose: 0.5 mg Documented by: [id number] Ketorolac Tromethamine (Toradol) 15 mg IV NOW STA Stop: 12/04/18 01:01 Last Admin: 12/04/18 01:09 Dose: 15 mg Documented by: [id number] Levalbuterol HCl (Xopenex 1.25mg/0.5ml Neb) 1.25 mg INH ONE STA Stop: 12/04/18 01:19 Last Admin: 12/04/18 01:40 Dose: 1.25 mg Documented by: [id number] Medical Decision Making Differential Diagnosis Differential diagnoses includes but is not limited to pneumonia, bronchitis, COPD/Asthma exacerbation, pneumothorax, pulmonary embolism, congestive heart failure, acute coronary syndrome Medical Records Attestation: I reviewed the patient's medical records. Home Medications Current Medication List: was personally reviewed by me Laboratory Data Attestation: I reviewed the patient's lab results. Result diagrams: 12/04/18 07:10 12/04/18 07:10 Lab Results 12/03/18 12/03/18 12/03/18 Range/Units 18:50 19:04 19:04 WBC 14.66 H (4.8-10.8) K/uL RBC 4.38 L (4.7-6.1) M/uL Hgb 13.8 L (14.0-18.0) g/dL Hct 42.0 (42-52) % MCV 95.9 (80-100) fL MCH 31.5 (25-34) pg MCHC 32.9 (32-36) g/dL RDW Std Deviation 46.4 H (36.4-46.3) fL RDW Coeff of Heath 13.2 (11.5-14.5) % Plt Count 333 (130-400) K/uL MPV 10.0 (7.4-10.4) fL Immature Gran % (Auto) 0.3 % Neut % (Auto) 80.7 % Lymph % (Auto) 10.8 % [place] % (Auto) 7.2 % Eos % (Auto) 0.7 % Baso % (Auto) 0.3 % Immature Gran # (Auto) 0.05 H (0.00-0.02) K/uL Neut # (Auto) 11.82 H (1.4-6.5) K/uL Lymph # (Auto) 1.59 (1.2-3.4) K/uL [place] # (Auto) 1.06 H (0.11-0.59) K/uL Eos # (Auto) 0.10 (0-0.5) K/uL Baso # (Auto) 0.04 (0-0.2) K/uL ESR 56 H (0-14) mm/hr PT (9.0-12.0) Seconds INR (0.9-1.1) APTT (21.0-31.0) Seconds PTT Ratio VBG pH (7.36-7.41) VBG pCO2 (38-50) mmHg VBG pO2 mmHg VBG HCO3 mmol/L VBG O2 Saturation % VBG Base Excess mEq/L Barometric Pressure mm/Hg Sodium (136-145) mmol/L Potassium (3.5-5.1) mmol/L Chloride (98-107) mmol/L Carbon Dioxide (21-32) mmol/L Anion Gap (3-11) BUN (7-18) mg/dl Creatinine (0.6-1.4) mg/dl Est Cr Clr Drug Dosing ml/min Est GFR ( Amer) Est GFR (Non-Af Amer) BUN/Creatinine Ratio (10-20) Glucose (70-99) mg/dl Lactate (0.4-2.0) mmol/L Calcium (8.5-10.1) mg/dl Magnesium (1.8-2.4) mg/dl Total Bilirubin (0.2-1) mg/dl AST (15-37) U/L ALT (12-78) U/L Alkaline Phosphatase (45-117) U/L Troponin I (0-0.045) ng/ml C-Reactive Protein (0-0.29) mg/dl NT-Pro-B Natriuret Pep (0-1800) pg/ml Total Protein (6.4-8.2) gm/dl Albumin (3.4-5.0) gm/dl Globulin (2.5-4.0) gm/dl Albumin/Globulin Ratio (0.9-2) Procalcitonin (0-0.5) ng/ml Digoxin (0.8-2.0) ng/ml Influenza Type A (PCR) Neg for Influ A (Neg) Influenza Type B (PCR) Neg for Influ B (Neg) 12/03/18 12/03/18 12/03/18 Range/Units 19:04 19:04 19:04 WBC (4.8-10.8) K/uL RBC (4.7-6.1) M/uL Hgb (14.0-18.0) g/dL Hct (42-52) % MCV (80-100) fL MCH (25-34) pg MCHC (32-36) g/dL RDW Std Deviation (36.4-46.3) fL RDW Coeff of Heath (11.5-14.5) % Plt Count (130-400) K/uL MPV (7.4-10.4) fL Immature Gran % (Auto) % Neut % (Auto) % Lymph % (Auto) % [place] % (Auto) % Eos % (Auto) % Baso % (Auto) % Immature Gran # (Auto) (0.00-0.02) K/uL Neut # (Auto) (1.4-6.5) K/uL Lymph # (Auto) (1.2-3.4) K/uL [place] # (Auto) (0.11-0.59) K/uL Eos # (Auto) (0-0.5) K/uL Baso # (Auto) (0-0.2) K/uL ESR (0-14) mm/hr PT 11.4 (9.0-12.0) Seconds INR 1.1 (0.9-1.1) APTT 30.1 (21.0-31.0) Seconds PTT Ratio 1.1 VBG pH (7.36-7.41) VBG pCO2 (38-50) mmHg VBG pO2 mmHg VBG HCO3 mmol/L VBG O2 Saturation % VBG Base Excess mEq/L Barometric Pressure mm/Hg Sodium 138 (136-145) mmol/L Potassium 4.4 (3.5-5.1) mmol/L Chloride 101 (98-107) mmol/L Carbon Dioxide 34 H (21-32) mmol/L Anion Gap 3.0 (3-11) BUN 17 (7-18) mg/dl Creatinine 1.07 (0.6-1.4) mg/dl Est Cr Clr Drug Dosing 53.5 ml/min Est GFR ( Amer) 74.5 Est GFR (Non-Af Amer) 64.3 BUN/Creatinine Ratio 16.3 (10-20) Glucose 94 (70-99) mg/dl Lactate 1.7 (0.4-2.0) mmol/L Calcium 9.1 (8.5-10.1) mg/dl Magnesium 2.2 (1.8-2.4) mg/dl Total Bilirubin 0.6 (0.2-1) mg/dl AST 20 (15-37) U/L ALT 41 (12-78) U/L Alkaline Phosphatase 130 H (45-117) U/L Troponin I < 0.015 (0-0.045) ng/ml C-Reactive Protein 2.53 H (0-0.29) mg/dl NT-Pro-B Natriuret Pep 1076 (0-1800) pg/ml Total Protein 7.3 (6.4-8.2) gm/dl Albumin 3.0 L (3.4-5.0) gm/dl Globulin 4.3 H (2.5-4.0) gm/dl Albumin/Globulin Ratio 0.7 L (0.9-2) Procalcitonin (0-0.5) ng/ml Digoxin (0.8-2.0) ng/ml Influenza Type A (PCR) (Neg) Influenza Type B (PCR) (Neg) 12/03/18 12/03/18 12/03/18 Range/Units 19:04 19:04 19:09 WBC (4.8-10.8) K/uL RBC (4.7-6.1) M/uL Hgb (14.0-18.0) g/dL Hct (42-52) % MCV (80-100) fL MCH (25-34) pg MCHC (32-36) g/dL RDW Std Deviation (36.4-46.3) fL RDW Coeff of Heath (11.5-14.5) % Plt Count (130-400) K/uL MPV (7.4-10.4) fL Immature Gran % (Auto) % Neut % (Auto) % Lymph % (Auto) % [place] % (Auto) % Eos % (Auto) % Baso % (Auto) % Immature Gran # (Auto) (0.00-0.02) K/uL Neut # (Auto) (1.4-6.5) K/uL Lymph # (Auto) (1.2-3.4) K/uL [place] # (Auto) (0.11-0.59) K/uL Eos # (Auto) (0-0.5) K/uL Baso # (Auto) (0-0.2) K/uL ESR (0-14) mm/hr PT (9.0-12.0) Seconds INR (0.9-1.1) APTT (21.0-31.0) Seconds PTT Ratio VBG pH 7.35 L (7.36-7.41) VBG pCO2 64 H (38-50) mmHg VBG pO2 19 mmHg VBG HCO3 34 mmol/L VBG O2 Saturation < 60.0 % VBG Base Excess 6.2 mEq/L Barometric Pressure 731.0 mm/Hg Sodium (136-145) mmol/L Potassium (3.5-5.1) mmol/L Chloride (98-107) mmol/L Carbon Dioxide (21-32) mmol/L Anion Gap (3-11) BUN (7-18) mg/dl Creatinine (0.6-1.4) mg/dl Est Cr Clr Drug Dosing ml/min Est GFR ( Amer) Est GFR (Non-Af Amer) BUN/Creatinine Ratio (10-20) Glucose (70-99) mg/dl Lactate (0.4-2.0) mmol/L Calcium (8.5-10.1) mg/dl Magnesium (1.8-2.4) mg/dl Total Bilirubin (0.2-1) mg/dl AST (15-37) U/L ALT (12-78) U/L Alkaline Phosphatase (45-117) U/L Troponin I (0-0.045) ng/ml C-Reactive Protein (0-0.29) mg/dl NT-Pro-B Natriuret Pep (0-1800) pg/ml Total Protein (6.4-8.2) gm/dl Albumin (3.4-5.0) gm/dl Globulin (2.5-4.0) gm/dl Albumin/Globulin Ratio (0.9-2) Procalcitonin < 0.05 (0-0.5) ng/ml Digoxin 0.4 L (0.8-2.0) ng/ml Influenza Type A (PCR) (Neg) Influenza Type B (PCR) (Neg) Imaging Data Radiologist's Impression: Radiology results as stated below per my review and the radiologist's interpretation: XR chest 1V portable CLINICAL HISTORY: Sepsis dyspnea COMPARISON STUDY: 05/23/2017 FINDINGS: Emphysematous change. No focal infiltrate. Mild cardiomegaly. IMPRESSION: No acute process. Emphysematous change. The above report was generated using voice recognition software. It may contain grammatical, syntax or spelling errors. Electronically signed by: Dominik Howard M.D. 12/03/2018 7:58 PM ECG Data Attestation: I personally reviewed and interpreted this ECG as follows: Indication: SOB/dyspnea Rate (beats per minute): 92 Rhythm: atrial fibrillation Findings: + LBBB and + PVC Comparison ECG Date: from (05/23/17) Change: no significant change Blood Pressure Blood Pressure Findings: Elevated blood pressure Blood Pressure Disposition: further management by hospitalist MDM Narrative The patient is an 83-year-old male who presented to the emergency department for evaluation of shortness of breath. The patient suffers from severe dementia and history is very limited. The patient appears to have very abnormal lung sounds. He was also hypoxic. He has an elevated white blood cell count and his cough is productive for sputum. The patient was treated presumptively for pneumonia although no definite infiltrate was noted on x-ray. I discussed the patient's laboratory and radiographic studies with the on-call [facility] hospitalist. They have agreed to evaluate patient in the emergency department for further management disposition. The patient was reevaluated multiple times. Impression & Plan Pneumonia, Hypoxia, SOB (shortness of breath), Respiratory acidosis Discharge Plan Visit Data *Final* Discharge Date/Time: 12/03/18 22:50 Chief Complaint: Illness ED Provider: Rafiq Ray Discharge Problem: Pneumonia, Hypoxia, SOB (shortness of breath), Respiratory acidosis Patient Disposition: Admitted As Inpatient Discharge Instructions Interventions: ED Discharge Assessment Last Done: 12/03/18 22:50 Discharge Problem: Pneumonia Qualifiers: Pneumonia type: due to unspecified organism Laterality: unspecified laterality Lung location: unspecified part of lung Qualified Code(s): J18.9 - Pneumonia, unspecified organism The scribe's documentation has been prepared under my direction and personally reviewed by me in its entirety. I confirm that the note above accurately reflects all work, treatment, procedures, and medical decision making performed by me.
[2018-12-04] MEDS: MONTELUKAST SODIUM 10 MG TABLET PO SCH (20:10)
[2018-12-04] MEDS: SIMVASTATIN 20 MG TAB PO SCH (20:10)
[2018-12-04] MEDS: OLANZapine 10 MG/2.1 ML SDV IM PRN (22:13)
[2018-12-05] MEDS: LEVALBUTEROL 1.25MG/0.5ML NEB INH SCH ×4 (01:00→19:08)
[2018-12-05] MEDS: IPRATROPIUM BROMIDE NEB SOLN 0.02% 2.5 ML VIAL INH SCH ×4 (01:00→19:08)
[2018-12-05] MEDS: SODIUM CHLOR 7% 4 ML NEB NEB SCH ×2 (07:07→19:08)
[2018-12-05] MEDS: CEFEPIME 2,000 MG in SYRINGE 0 ML IV SCH ×2 (08:48→20:14)
[2018-12-05] MEDS: VENLAFAXINE HCL XR 37.5 MG CAPXR PO SCH (08:48)
[2018-12-05] MEDS: DONEPEZIL HCL 10 MG TAB PO SCH (08:48)
[2018-12-05] MEDS: predniSONE 20 MG TAB PO SCH (08:48)
[2018-12-05] MEDS: MEMANTINE HCL 10 MG TAB PO SCH (08:48)
[2018-12-05] MEDS: VENLAFAXINE HCL XR 75 MG CAPXR PO SCH (08:48)
--- NOTE | 2018-12-05 09:44 | Hospitalist Progress Note ---
Date of Service December 05, 2018 Assessment & Plan (1) Acute hypoxemic respiratory failure: (1) Acute hypoxemic respiratory failure: Secondary to right lower lobe pneumonia, possible healthcare associated versus aspiration Possible sepsis Possible Mild COPD Exacerbation -- CT chest: IMPRESSION: 1. Motion degraded exam. No central pulmonary emboli identified. 3. Patchy consolidative opacities of the right lower lobe, most pronounced within the basal segments suggestive of pneumonia or aspiration pneumonitis. Correlate clinically. 4. Emphysema. 5. Bilateral bronchial wall thickening with tracheobronchial secretions. 6. Unchanged bilateral pulmonary nodules as above. -- Check sputum culture: awaiting collection nasal MRSA: negative Blood cultures: no growth so far Lactic acid normal --Still on 3 L of oxygen via nasal cannula --Continue cefepime and clindamycin Continue nebs, flutter valve, hypertonic saline nebs, chest physiotherapy/vest therapy --Wean off oxygen accordingly --Speech Therapy consulted Chronic Diastolic Congestive heart failure, EF of 55-59% TTE 2017) Aortic stenosis --Patient on the dry side, continue gentle IV fluids, monitor status closely AFib --Continue digoxin rate controlled, off anticoagulation secondary to fall risk and subdural hematoma Probable bronchogenic neoplasm as per records --Out patient follow-up Hospice patient -- patient family agreeable to confinement for medical management for 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 SCDs in light of history of recurrent subdural hematoma DNR as per prior directives. Disposition Anticipate return to [facility] when medically stable PCP follow-up with Dr. Serena Soni Plan of care discussed with patient's Anisha Monterroso in detail and at length today All questions answered She is agreeable, comfortable, understanding of plan of care Subjective Follow-up for pneumonia, healthcare associated versus aspiration Seen in the morning, sitting up, patient's eyes are closed but answers in sentences, confused States he feels fine, denies shortness of breath, or cough Patient declined physical exam Returned in the afternoon with patient's at the bedside States patient was conversant with her earlier, now sleeping Patient agreed for me to examine him Denies complaints Patient had 50% of dinner with assistance of his last night No overt signs of aspiration noted Patient did not have breakfast or lunch today Requested patient's to assist him again for dinner this evening Review of Systems Review of Systems: All systems reviewed & are unremarkable except as noted in HPI & below Physical Exam Physical Exam: General- oriented x 0, not in distress, speaks in sentences with no effort or accessory muscle use Eyes- anicteric Neck- no JVD Lungs-mild rhonchi right base, no wheezing, clear on the left Heart- normal rate, regular rhythm; no murmurs Abdomen- normal bowel sounds, nondistended, soft, nontender Extremities- no pretibial edema, no calf tenderness Neuro- alert, oriented x 0; no new gross focal neurologic deficits noted Skin- warm & dry Results & Data Vital Signs (Past 12 Hours) Vital Signs Temp Pulse Pulse Resp BP BP Pulse Ox 12/05/18 09:00 97 H 12/05/18 07:42 37.5 C 67 20 106/65 96 12/05/18 07:11 89 22 81 L 12/05/18 03:59 37.3 C 101 H 20 92 12/05/18 01:02 89 20 91 12/04/18 23:52 36.9 C 110 H 20 117/72 96 Laboratory Results Laboratory Results - last 24 hr 12/05/18 12/05/18 09:45 09:45 WBC 21.38 H RBC 4.14 L Hgb 12.9 L Hct 39.2 L MCV 94.7 MCH 31.2 MCHC 32.9 RDW Std Deviation 45.8 RDW Coeff of Heath 13.3 Plt Count 270 MPV 9.7 Immature Gran % (Auto) 0.4 Neut % (Auto) 84.4 Lymph % (Auto) 7.7 Meade % (Auto) 7.2 Eos % (Auto) 0.1 Baso % (Auto) 0.2 Immature Gran # (Auto) 0.08 H Neut # (Auto) 18.06 H Lymph # (Auto) 1.65 Meade # (Auto) 1.53 H Eos # (Auto) 0.02 Baso # (Auto) 0.04 Sodium 139 Potassium 3.8 D Chloride 102 Carbon Dioxide 33 H Anion Gap 4.0 BUN 21 H Creatinine 1.23 Est Cr Clr Drug Dosing 41.1 Est GFR ( Amer) 63.0 Est GFR (Non-Af Amer) 54.3 BUN/Creatinine Ratio 16.8 Glucose 125 H Calcium 9.0
[2018-12-05] MEDS ORDERED: D5W AND NSS 1,000 ML IV SCH (09:45)
[2018-12-05] MEDS ORDERED: CLINDAMYCIN CONSULT ACTIVE PRN (09:58)
[2018-12-05 10:03] LABS: Basophils # (auto) 0.04 K/uL (0-0.2); Basophils % (auto) 0.2 %; Eosinophils # (auto) 0.02 K/uL (0-0.5); Eosinophils % (auto) 0.1 %; Hematocrit (blood only) 39.2 % (42-52); Hemoglobin 12.9 g/dL (14.0-18.0); Immature Granulocytes # (auto) 0.08 K/uL (0.00-0.02); Immature Granulocytes % (auto) 0.4 %; Lymphocytes # (auto) 1.65 K/uL (1.2-3.4); Lymphocytes % (auto) 7.7 %; Mean Corpuscular Hemoglobin 31.2 pg (25-34); Mean Corpuscular Hgb Conc 32.9 g/dL (32-36); Mean Corpuscular Volume 94.7 fL (80-100); Mean Platelet Volume 9.7 fL (7.4-10.4); Monocytes # (auto) 1.53 K/uL (0.11-0.59); Monocytes % (auto) 7.2 %; Neutrophils # (auto) 18.06 K/uL (1.4-6.5); Neutrophils % (auto) 84.4 %; Platelet Count 270 K/uL (130-400); RDW Coefficient of Variation 13.3 % (11.5-14.5); RDW Standard Deviation 45.8 fL (36.4-46.3); Red Blood Count 4.14 M/uL (4.7-6.1); White Blood Count 21.38 K/uL (4.8-10.8)
[2018-12-05 10:34] LABS: BUN Creatinine Ratio 16.8 (10-20); Creatinine Clr Calc Pharmacy 41.1 ml/min; Est GFR (Non-African American) 54.3; Potassium 3.8 mmol/L (3.5-5.1)
[2018-12-05] MEDS: CLINDAMYCIN 600 MG/54 ML BAG IV SCH ×2 (11:03→17:33)
[2018-12-05] MEDS: LACTOBACILLUS ACIDOPHILUS 1 GM PACK PO SCH ×2 (12:12→17:33)
[2018-12-05] MEDS: DIGOXIN 0.125 MG TAB PO SCH (17:34)
[2018-12-05] MEDS: MONTELUKAST SODIUM 10 MG TABLET PO SCH (20:16)
[2018-12-05] MEDS: SIMVASTATIN 20 MG TAB PO SCH (20:16)
[2018-12-06] MEDS: LEVALBUTEROL 1.25MG/0.5ML NEB INH SCH ×4 (00:31→19:01)
[2018-12-06] MEDS: IPRATROPIUM BROMIDE NEB SOLN 0.02% 2.5 ML VIAL INH SCH ×4 (00:32→19:01)
[2018-12-06] MEDS: CLINDAMYCIN 600 MG/54 ML BAG IV SCH ×3 (01:14→17:50)
[2018-12-06] MEDS: SODIUM CHLOR 7% 4 ML NEB NEB SCH ×2 (06:54→19:23)
[2018-12-06 07:59] LABS: BUN Creatinine Ratio 20.7 (10-20); Calcium 9.5 mg/dl (8.5-10.1); Creatinine Clr Calc Pharmacy 50.9 ml/min; Est GFR (African American) 81.9; Est GFR (Non-African American) 70.6; Potassium 4.1 mmol/L (3.5-5.1)
[2018-12-06] MEDS: DONEPEZIL HCL 10 MG TAB PO SCH (08:42)
[2018-12-06] MEDS: VENLAFAXINE HCL XR 37.5 MG CAPXR PO SCH (08:43)
[2018-12-06] MEDS: CEFEPIME 2,000 MG in SYRINGE 0 ML IV SCH ×2 (08:43→21:53)
[2018-12-06] MEDS: MEMANTINE HCL 10 MG TAB PO SCH (08:43)
[2018-12-06] MEDS: LACTOBACILLUS ACIDOPHILUS 1 GM PACK PO SCH ×3 (08:43→16:35)
[2018-12-06] MEDS: VENLAFAXINE HCL XR 75 MG CAPXR PO SCH (08:43)
--- NOTE | 2018-12-06 09:21 | Hospitalist Progress Note ---
Date of Service December 06, 2018 Assessment & Plan (1) Right lower lobe pneumonia: (2) Acute hypoxemic respiratory failure: Acute hypoxemic respiratory failure due to Right lower lobe pneumonia Possible Sepsis Concern for aspiration Blood cultures has been negative x 48h CT chest showed Patchy consolidative opacities of the right lower lobe, most pronounced within the basal segments suggestive of pneumonia or aspiration pneumonitis. Was hypotensive yesterday. Has been hemodynamically stable since yesterday Will continue cefepime and clindamycin for now. Still requiring oxygen. Will wean oxygen as tolerated Sputum culture difficult to collect due to mental status. Nasal MRSA: negative Continue nebs, flutter valve, hypertonic saline nebs, chest physiotherapy/vest therapy Speech therapy evaluation noted. Aspiration precautions. Needs aid with feeding Disposition Anticipate return to [facility] when medically stable PCP follow-up with Dr. Serena Soni (3) Atrial fibrillation: Currently rate controlled No anticoagulation due to history of subdural hemorrhage Continue digoxin (4) Chronic diastolic heart failure: Currently euvolemic Hemodynamically stable Echo from 2017 noted. EF 55-59%, severe AV calcification with suspected stenosis (5) Dementia: Continue home meds (6) Hospice care patient: Will continue hospice care on discharge (7) Hypertension: Was hypotensive yesterday Currently normotensive Not on any antihypertensive Monitor Bp (8) H/O subdural hemorrhage: Avoid anticoagulation for DVT ppx SCD for DVT ppx Subjective Patient seen and examined this morning. Patient is confused and not able to have a coherent conversation. Discussed with RN. Patient was able to tolerate most of his breakfast with aid. Review of Systems Review of Systems: Limited ROS due to mental status Physical Exam Constitutional: Aox0, no obvious distress Eyes: + anicteric sclerae and EOM intact bilaterally ENMT: external ear and nose normal, oropharynx normal Neck: No JVD Respiratory: normal respiratory effort; no respiratory distress and does not use accessory muscles Some coarse breath sounds on right lower lung zone, transmitted sounds Cardiovascular: Normal rate, irregular rhythm, s1 s2, no pedal edema Gastrointestinal (Abdomen): normal bowel sounds, soft, nontender, no hepatosplenomegaly Neurologic: Aox0, awake alert, does not follow commands, limited neuro exam due to mental status Psychiatric: Aox0 Lymphatic: no cervical lymphadenopathy Results & Data Vital Signs (Past 12 Hours) Vital Signs Temp Pulse Pulse Resp BP BP Pulse Ox 12/06/18 06:57 82 17 92 12/06/18 04:19 36.5 C 78 20 132/62 100 12/06/18 00:33 78 18 91 12/06/18 00:02 36.3 C L 93 H 18 112/74 93 12/05/18 23:33 86 Laboratory Results Short CBC 12/05/18 Range/Units 09:45 WBC 21.38 H (4.8-10.8) K/uL Hgb 12.9 L (14.0-18.0) g/dL Hct 39.2 L (42-52) % Plt Count 270 (130-400) K/uL BMP 12/05/18 12/06/18 09:45 06:46 Sodium 139 142 Potassium 3.8 D 4.1 Chloride 102 105 Carbon Dioxide 33 H 34 H BUN 21 H 21 H Creatinine 1.23 0.99 Glucose 125 H 96 Calcium 9.0 9.5
[2018-12-06] MEDS: DIGOXIN 0.125 MG TAB PO SCH (16:35)
[2018-12-06] MEDS: MONTELUKAST SODIUM 10 MG TABLET PO SCH (21:51)
[2018-12-06] MEDS: SIMVASTATIN 20 MG TAB PO SCH (21:51)
[2018-12-06] MEDS: OLANZapine 10 MG/2.1 ML SDV IM PRN (21:54)
[2018-12-07] MEDS: IPRATROPIUM BROMIDE NEB SOLN 0.02% 2.5 ML VIAL INH SCH ×4 (00:42→18:48)
[2018-12-07] MEDS: LEVALBUTEROL 1.25MG/0.5ML NEB INH SCH ×4 (00:42→18:48)
[2018-12-07] MEDS: CLINDAMYCIN 600 MG/54 ML BAG IV SCH ×3 (01:46→19:19)
[2018-12-07 06:08] LABS: Hemoglobin 12.8 g/dL (14.0-18.0); Mean Corpuscular Hemoglobin 30.7 pg (25-34); Mean Corpuscular Hgb Conc 31.2 g/dL (32-36); Mean Corpuscular Volume 98.3 fL (80-100); Mean Platelet Volume 10.3 fL (7.4-10.4); Platelet Count 264 K/uL (130-400); RDW Coefficient of Variation 13.9 % (11.5-14.5); RDW Standard Deviation 49.6 fL (36.4-46.3); Red Blood Count 4.17 M/uL (4.7-6.1)
[2018-12-07 06:45] LABS: BUN Creatinine Ratio 24.4 (10-20); Calcium 9.5 mg/dl (8.5-10.1); Est GFR (African American) 76.2; Est GFR (Non-African American) 65.8; Potassium 4.7 mmol/L (3.5-5.1)
[2018-12-07] MEDS: SODIUM CHLOR 7% 4 ML NEB NEB SCH ×2 (07:10→18:48)
[2018-12-07] MEDS: CEFEPIME 2,000 MG in SYRINGE 0 ML IV SCH ×2 (08:40→20:14)
[2018-12-07] MEDS: VENLAFAXINE HCL XR 37.5 MG CAPXR PO SCH (08:42)
[2018-12-07] MEDS: VENLAFAXINE HCL XR 75 MG CAPXR PO SCH (08:42)
[2018-12-07] MEDS: MEMANTINE HCL 10 MG TAB PO SCH (08:43)
[2018-12-07] MEDS: LACTOBACILLUS ACIDOPHILUS 1 GM PACK PO SCH ×3 (08:43→17:03)
[2018-12-07] MEDS: DONEPEZIL HCL 10 MG TAB PO SCH (08:43)
--- NOTE | 2018-12-07 10:00 | Hospitalist Progress Note ---
Date of Service December 07, 2018 Assessment & Plan (1) Right lower lobe pneumonia: (2) Acute hypoxemic respiratory failure: Acute hypoxemic respiratory failure due to Right lower lobe pneumonia Possible Sepsis Concern for aspiration Blood cultures has been negative so far CT chest showed Patchy consolidative opacities of the right lower lobe, most pronounced within the basal segments suggestive of pneumonia or aspiration pneumonitis. BP has been more stable. Will continue cefepime and clindamycin for now. Still requiring oxygen. Continue wean oxygen as tolerated Sputum culture difficult to collect due to mental status. Nasal MRSA: negative Will get CXR to reevaluate Continue nebs, flutter valve, hypertonic saline nebs, chest physiotherapy/vest therapy Speech therapy evaluation noted. Aspiration precautions. Needs aid with feeding Disposition Anticipate return to [facility] when medically stable PCP follow-up with Dr. Serena Soni (3) Atrial fibrillation: Currently rate controlled No anticoagulation due to history of subdural hemorrhage Continue digoxin (4) Chronic diastolic heart failure: Currently euvolemic Hemodynamically stable Echo from 2017 noted. EF 55-59%, severe AV calcification with suspected stenosis (5) Dementia: Continue home meds (6) Hospice care patient: Will continue hospice care on discharge (7) Hypertension: Currently normotensive Not on any antihypertensive Continue to monitor BP (8) H/O subdural hemorrhage: Avoid anticoagulation for DVT ppx SCD for DVT ppx Subjective Patient seen and examined No overnight events per lubricating specialist of Systems Review of Systems: Unobtainable due to mental health condition Physical Exam Constitutional: Aox0. Awake, confused conversation Eyes: PERRL, conjunctivae normal, anicteric sclerae ENMT: external ear and nose normal, oropharynx normal Neck: trachea midline, no thyromegaly Respiratory: normal respiratory effort; no respiratory distress, no labored breathing and does not use accessory muscles Some coarse crackles on right lower lung zone Cardiovascular: Rate/Rhythm: regular rate; + abnormal rhythm Extremities: no pedal edema Gastrointestinal (Abdomen): normal bowel sounds, soft, nontender, no hepatosplenomegaly Neurologic: Aox0, moves all extremities. Limited exam due to mental status Results & Data Vital Signs (Past 12 Hours) Vital Signs Temp Pulse Resp BP BP Pulse Ox 12/07/18 07:51 36.7 C 99 H 18 107/74 94 12/07/18 07:15 77 18 90 12/07/18 05:04 36.6 C 76 18 109/69 97 12/07/18 00:54 36.8 C 90 20 108/71 94 12/07/18 00:42 89 18 93
--- NOTE | 2018-12-07 10:23 | XRay Report ---
XR chest 1V portable CLINICAL HISTORY: Pneumonia COMPARISON STUDY: 12/03/2018 FINDINGS: The heart is borderline enlarged. There is aortic tortuosity. There is suspected underlying pulmonary emphysema. There are minor right basilar airspace opacities. There is blunting of the righ t lateral costophrenic angle suggesting a trace effusion.[ IMPRESSION: 1. Subtle right basilar airspace opacities, possibly representing a pneumonitis 2. Suspected trace right pleural effusion Electronically signed by: Ziggy Giron M.D. 12/07/2018 10:22 AM
[2018-12-07] MEDS: DIGOXIN 0.125 MG TAB PO SCH (17:03)
[2018-12-07] MEDS: SIMVASTATIN 20 MG TAB PO SCH (19:34)
[2018-12-07] MEDS: MONTELUKAST SODIUM 10 MG TABLET PO SCH (19:35)
[2018-12-08] MEDS: LEVALBUTEROL 1.25MG/0.5ML NEB INH SCH ×5 (00:41→19:21)
[2018-12-08] MEDS: IPRATROPIUM BROMIDE NEB SOLN 0.02% 2.5 ML VIAL INH SCH ×5 (00:41→19:22)
[2018-12-08] MEDS: CLINDAMYCIN 600 MG/54 ML BAG IV SCH ×3 (02:03→18:12)
[2018-12-08 06:40] LABS: Hematocrit (blood only) 41.7 % (42-52); Hemoglobin 13.4 g/dL (14.0-18.0); Mean Corpuscular Hemoglobin 31.1 pg (25-34); Mean Corpuscular Hgb Conc 32.1 g/dL (32-36); Mean Corpuscular Volume 96.8 fL (80-100); Mean Platelet Volume 10.1 fL (7.4-10.4); Platelet Count 274 K/uL (130-400); RDW Coefficient of Variation 13.5 % (11.5-14.5); RDW Standard Deviation 48.4 fL (36.4-46.3); Red Blood Count 4.31 M/uL (4.7-6.1); White Blood Count 11.71 K/uL (4.8-10.8)
[2018-12-08] MEDS: SODIUM CHLOR 7% 4 ML NEB NEB SCH ×2 (06:58→19:21)
[2018-12-08] MEDS: LACTOBACILLUS ACIDOPHILUS 1 GM PACK PO SCH ×3 (08:17→16:16)
[2018-12-08] MEDS: CEFEPIME 2,000 MG in SYRINGE 0 ML IV SCH ×2 (08:17→20:24)
[2018-12-08] MEDS: DONEPEZIL HCL 10 MG TAB PO SCH (08:17)
[2018-12-08] MEDS: VENLAFAXINE HCL XR 37.5 MG CAPXR PO SCH (08:18)
[2018-12-08] MEDS: MEMANTINE HCL 10 MG TAB PO SCH (08:18)
[2018-12-08] MEDS: VENLAFAXINE HCL XR 75 MG CAPXR PO SCH (08:18)
--- NOTE | 2018-12-08 10:46 | Hospitalist Progress Note ---
Date of Service December 08, 2018 Assessment & Plan (1) Right lower lobe pneumonia: (2) Acute hypoxemic respiratory failure: Acute hypoxemic respiratory failure due to Right lower lobe pneumonia Possible Sepsis Concern for aspiration Blood cultures has been negative so far CT chest showed Patchy consolidative opacities of the right lower lobe, most pronounced within the basal segments suggestive of pneumonia or aspiration pneumonitis. Sputum culture difficult to collect due to mental status. Nasal MRSA: negative Leukocytosis improving Will continue cefepime and clindamycin for now to complete antibiotic therapy Still requiring oxygen. Continue wean oxygen as tolerated. stated that he requires oxygen at nighttime Continue nebs, flutter valve, hypertonic saline nebs, chest physiotherapy/vest therapy Aspiration precautions. Needs aid with feeding. Soft easy to bite diet (3) Atrial fibrillation: Currently rate controlled No anticoagulation due to history of subdural hemorrhage Continue digoxin (4) Chronic diastolic heart failure: Currently euvolemic Hemodynamically stable Echo from 2017 noted. EF 55-59%, severe AV calcification with suspected stenosis (5) Dementia: Continue home meds (6) Hospice care patient: Will continue hospice care on discharge Updated over the phone (7) Hypertension: Currently normotensive Not on any antihypertensive Continue to monitor BP (8) H/O subdural hemorrhage: Avoid anticoagulation for DVT ppx SCD for DVT ppx Will get PT eval to aid with ambulation/exercise while inpatient Disposition :Anticipate return to [facility] when medically stable PCP follow-up with Dr. Serena Soni Subjective Patient seen and examined Difficult obtaining history from patient due to mental status Review of Systems Review of Systems: Unobtainable due to mental health condition Physical Exam Constitutional: well developed; no acute distress Eyes: PERRL, conjunctivae normal, anicteric sclerae ENMT: external ear and nose normal, oropharynx normal Respiratory: normal respiratory effort, lungs clear to auscultation Cardiovascular: Rate/Rhythm: regular rate; + abnormal rhythm Extremities: no edema Gastrointestinal (Abdomen): normal bowel sounds, soft, nontender, no hepato splenomegaly Neurologic: Aox0, limited exam due to mental status, moves all extremities Results & Data Vital Signs (Past 12 Hours) Vital Signs Temp Pulse Pulse Resp BP BP Pulse Ox 12/08/18 08:26 36.6 C 73 19 130/90 93 12/08/18 07:15 81 12/08/18 06:58 77 16 93 12/08/18 04:34 35.7 C L 89 20 129/88 93 12/07/18 23:37 94 H 12/07/18 23:08 36.7 C 93 H 20 110/70 92 Laboratory Results Short CBC 12/08/18 Range/Units 06:28 WBC 11.71 H (4.8-10.8) K/uL Hgb 13.4 L (14.0-18.0) g/dL Hct 41.7 L (42-52) % Plt Count 274 (130-400) K/uL
[2018-12-08] MEDS: DIGOXIN 0.125 MG TAB PO SCH (16:16)
[2018-12-08] MEDS: MONTELUKAST SODIUM 10 MG TABLET PO SCH (21:54)
[2018-12-08] MEDS: SIMVASTATIN 20 MG TAB PO SCH (21:54)
[2018-12-09] MEDS: IPRATROPIUM BROMIDE NEB SOLN 0.02% 2.5 ML VIAL INH SCH ×4 (00:49→19:07)
[2018-12-09] MEDS: LEVALBUTEROL 1.25MG/0.5ML NEB INH SCH ×4 (00:49→19:07)
[2018-12-09] MEDS: CLINDAMYCIN 600 MG/54 ML BAG IV SCH ×3 (01:51→17:53)
[2018-12-09] MEDS: SODIUM CHLOR 7% 4 ML NEB NEB SCH ×2 (07:20→19:07)
[2018-12-09 07:41] LABS: Hematocrit (blood only) 42.2 % (42-52); Hemoglobin 13.6 g/dL (14.0-18.0); Mean Corpuscular Hgb Conc 32.2 g/dL (32-36); Mean Corpuscular Volume 96.1 fL (80-100); Mean Platelet Volume 10.2 fL (7.4-10.4); Platelet Count 285 K/uL (130-400); RDW Coefficient of Variation 13.7 % (11.5-14.5); RDW Standard Deviation 48.2 fL (36.4-46.3); Red Blood Count 4.39 M/uL (4.7-6.1); White Blood Count 10.66 K/uL (4.8-10.8)
[2018-12-09] MEDS: CEFEPIME 2,000 MG in SYRINGE 0 ML IV SCH ×2 (08:07→20:43)
[2018-12-09 08:16] LABS: BUN Creatinine Ratio 23.3 (10-20); Calcium 9.1 mg/dl (8.5-10.1); Creatinine Clr Calc Pharmacy 55.5 ml/min; Est GFR (African American) 92.7; Potassium 3.9 mmol/L (3.5-5.1)
[2018-12-09] MEDS: VENLAFAXINE HCL XR 75 MG CAPXR PO SCH (10:25)
[2018-12-09] MEDS: LACTOBACILLUS ACIDOPHILUS 1 GM PACK PO SCH ×3 (10:25→16:22)
[2018-12-09] MEDS: DONEPEZIL HCL 10 MG TAB PO SCH (10:25)
[2018-12-09] MEDS: VENLAFAXINE HCL XR 37.5 MG CAPXR PO SCH (10:26)
[2018-12-09] MEDS: MEMANTINE HCL 10 MG TAB PO SCH (10:27)
--- NOTE | 2018-12-09 11:44 | Hospitalist Progress Note ---
Date of Service December 09, 2018 Assessment & Plan (1) Right lower lobe pneumonia: (2) Acute hypoxemic respiratory failure: Acute hypoxemic respiratory failure due to Right lower lobe pneumonia Possible Sepsis Concern for aspiration Blood cultures has been negative so far CT chest showed Patchy consolidative opacities of the right lower lobe, most pronounced within the basal segments suggestive of pneumonia or aspiration pneumonitis. Sputum culture difficult to collect due to mental status. Nasal MRSA: negative Leukocytosis has resolved. WBC is 10 today, was 21 on 12/05/18 Will continue cefepime and clindamycin for now to complete antibiotic therapy. Due to mental status, it is tough to change to oral meds as patient intermittently agrees to oral intake. For this reason, will continue antibiotic iv to complete 7 day therapy Still requiring oxygen. Continue wean oxygen as tolerated. stated that he requires oxygen at nighttime Continue nebs, flutter valve, hypertonic saline nebs, chest physiotherapy/vest therapy Aspiration precautions. Needs aid with feeding. Soft easy to bite diet (3) Atrial fibrillation: Currently rate controlled No anticoagulation due to history of subdural hemorrhage Continue digoxin (4) Chronic diastolic heart failure: Currently euvolemic Hemodynamically stable Echo from 2017 noted. EF 55-59%, severe AV calcification with suspected stenosis (5) Dementia: Advanced dementia Continue assistance with all ADLs Continue home meds (6) Hospice care patient: Will continue hospice care on discharge Updated daughter who was at bedside and answered all her questions (7) Hypertension: Currently normotensive Not on any antihypertensive Continue to monitor BP (8) H/O subdural hemorrhage: Avoid anticoagulation for DVT ppx SCD for DVT ppx Disposition :Anticipate return to [facility] after completion of antibiotics PCP follow-up with Dr. Serena Soni Subjective Patient seen and evaluated Daughter was at bedside Review of Systems Review of Systems: Unobtainable due to mental health condition Physical Exam Constitutional: well developed; no acute distress Eyes: PERRL, conjunctivae normal, anicteric sclerae ENMT: external ear and nose normal, oropharynx normal Respiratory: normal respiratory effort, lungs clear to auscultation Cardiovascular: Rate/Rhythm: + abnormal rhythm Extremities: no pedal edema Gastrointestinal (Abdomen): normal bowel sounds, soft, nontender, no hepatosplenomegaly Neurologic: AOx0, moves extremities Results & Data Vital Signs (Past 12 Hours) Vital Signs Temp Pulse Pulse Resp BP BP Pulse Ox 12/09/18 11:35 36.5 C 95 H 16 123/69 91 12/09/18 07:46 100 H 20 131/85 90 12/09/18 07:22 88 12/09/18 07:21 101 H 18 91 12/09/18 03:40 36.3 C L 82 18 133/71 92 12/09/18 00:55 83 14 93 12/09/18 00:47 87 Laboratory Results Short CBC 12/09/18 Range/Units 07:21 WBC 10.66 (4.8-10.8) K/uL Hgb 13.6 L (14.0-18.0) g/dL Hct 42.2 (42-52) % Plt Count 285 (130-400) K/uL BMP 12/09/18 07:21 Sodium 138 Potassium 3.9 Chloride 100 Carbon Dioxide 35 H BUN 20 H Creatinine 0.88 Glucose 76 Calcium 9.1
[2018-12-09] MEDS: DIGOXIN 0.125 MG TAB PO SCH (16:42)
[2018-12-09] MEDS: MONTELUKAST SODIUM 10 MG TABLET PO SCH (20:42)
[2018-12-09] MEDS: SIMVASTATIN 20 MG TAB PO SCH (20:43)
[2018-12-10] MEDS: IPRATROPIUM BROMIDE NEB SOLN 0.02% 2.5 ML VIAL INH SCH ×4 (00:27→19:14)
[2018-12-10] MEDS: LEVALBUTEROL 1.25MG/0.5ML NEB INH SCH ×4 (00:28→19:14)
[2018-12-10] MEDS: CLINDAMYCIN 600 MG/54 ML BAG IV SCH ×3 (01:06→18:02)
[2018-12-10] MEDS: SODIUM CHLOR 7% 4 ML NEB NEB SCH ×2 (07:06→19:14)
[2018-12-10 07:39] LABS: Creatinine Clr Calc Pharmacy 50.2 ml/min; Est GFR (African American) 83.9; Est GFR (Non-African American) 72.4
[2018-12-10] MEDS: LACTOBACILLUS ACIDOPHILUS 1 GM PACK PO SCH ×3 (09:07→17:40)
[2018-12-10] MEDS: CEFEPIME 2,000 MG in SYRINGE 0 ML IV SCH ×2 (09:09→21:54)
[2018-12-10] MEDS: DONEPEZIL HCL 10 MG TAB PO SCH (10:22)
[2018-12-10] MEDS: VENLAFAXINE HCL XR 37.5 MG CAPXR PO SCH (10:23)
[2018-12-10] MEDS: VENLAFAXINE HCL XR 75 MG CAPXR PO SCH (10:23)
[2018-12-10] MEDS: MEMANTINE HCL 10 MG TAB PO SCH (10:23)
--- NOTE | 2018-12-10 10:29 | Hospitalist Progress Note ---
Date of Service December 10, 2018 Assessment & Plan (1) Right lower lobe pneumonia: (2) Acute hypoxemic respiratory failure: Acute hypoxemic respiratory failure due to Right lower lobe pneumonia Possible Sepsis Likely aspiration Blood cultures has been negative so far CT chest showed Patchy consolidative opacities of the right lower lobe, most pronounced within the basal segments suggestive of pneumonia or aspiration pneumonitis. Sputum culture difficult to collect due to mental status. Nasal MRSA: negative Leukocytosis has resolved. Will continue cefepime and clindamycin for now to complete antibiotic therapy by the end of today Due to mental status, it is tough to change to oral meds as patient intermittently agrees to oral intake. Still requiring oxygen. Continue wean oxygen as tolerated. Requires oxygen at nighttime per previous report from Continue nebs, flutter valve, hypertonic saline nebs, chest physiotherapy/vest therapy Aspiration precautions. Needs aid with feeding. Soft easy to bite diet (3) Atrial fibrillation: Currently rate controlled No anticoagulation due to history of subdural hemorrhage Continue digoxin (4) Chronic diastolic heart failure: Currently euvolemic Hemodynamically stable Echo from 2017 noted. EF 55-59%, severe AV calcification with suspected stenosis (5) Dementia: Advanced dementia Continue assistance with all ADLs Continue home meds (6) Hospice care patient: Will continue hospice care on discharge (7) Hypertension: Currently normotensive Not on any antihypertensive Continue to monitor BP (8) H/O subdural hemorrhage: Avoid anticoagulation for DVT ppx SCD for DVT ppx Disposition :Plan for discharge tomorrow PCP follow-up with Dr. Serena Soni Subjective Patient seen and evaluated No events overnight Was sleepy but arousable Review of Systems Review of Systems: All systems reviewed and unremarkable except for mentioned above. Physical Exam Constitutional: + cachectic and + altered mental status Eyes: PERRL, conjunctivae normal, anicteric sclerae ENMT: external ear and nose normal, oropharynx normal Respiratory: normal respiratory effort, lungs clear to auscultation Cardiovascular: Rate/Rhythm: + abnormal rhythm S1 S2 Gastrointestinal (Abdomen): normal bowel sounds, soft, nontender, no hepatosplenomegaly Neurologic: AoxO, sleepy but arousable Results & Data Vital Signs (Past 12 Hours) Vital Signs Temp Pulse Pulse Resp BP BP Pulse Ox 12/10/18 07:33 36.6 C 85 16 123/83 99 12/10/18 07:07 94 H 18 92 12/10/18 03:25 36.5 C 92 H 20 135/93 95 12/10/18 02:07 85 12/10/18 00:28 85 20 96 12/09/18 23:47 36.6 C 85 21 101/75 95 Laboratory Results [facility] 12/10/18 06:48 Creatinine 0.97
[2018-12-10] MEDS: DIGOXIN 0.125 MG TAB PO SCH (16:35)
[2018-12-10] MEDS: SIMVASTATIN 20 MG TAB PO SCH (21:53)
[2018-12-10] MEDS: MONTELUKAST SODIUM 10 MG TABLET PO SCH (21:53)
[2018-12-11] MEDS: LEVALBUTEROL 1.25MG/0.5ML NEB INH SCH ×3 (00:58→13:12)
[2018-12-11] MEDS: IPRATROPIUM BROMIDE NEB SOLN 0.02% 2.5 ML VIAL INH SCH ×3 (00:58→13:12)
[2018-12-11] MEDS: CLINDAMYCIN 600 MG/54 ML BAG IV SCH (01:47)
[2018-12-11] MEDS: SODIUM CHLOR 7% 4 ML NEB NEB SCH (07:00)
[2018-12-11] MEDS: LACTOBACILLUS ACIDOPHILUS 1 GM PACK PO SCH ×2 (08:08→12:35)
[2018-12-11] MEDS: DONEPEZIL HCL 10 MG TAB PO SCH (08:08)
[2018-12-11] MEDS: VENLAFAXINE HCL XR 37.5 MG CAPXR PO SCH (08:08)
[2018-12-11] MEDS: MEMANTINE HCL 10 MG TAB PO SCH (08:09)
[2018-12-11] MEDS: VENLAFAXINE HCL XR 75 MG CAPXR PO SCH (08:10)
--- NOTE | 2018-12-11 14:44 | Discharge Summary ---
Date of Service December 11, 2018 Admission HPI Per Admitting Provider History obtained from patient, family, and records. Limited history from patient secondary to dementia and hearing impairment. 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 Recent confinement November 2016 for encephalopathy attributed to lorazepam. Patient transitioned to [facility] for hospice care last month. As per records, patient noted to have fever, wet cough, shortness of breath for the last 2 days. Patient denies any symptoms, does not know why he is in the hospital. At the ER, patient given Levaquin. 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[employer], senior living resident Medical History as above Admission Exam Per Admitting Provider GENERAL: Comfortable, demented, underweight, no respiratory distress SKIN: Normal color, warm HEENT: [place] palpebral conjunctivae, no ptosis, dry buccal mucosa, nasal cannula in place NECK : Supple, no tenderness CHEST : Decreased breath sounds , no tenderness HEART : Irregular, systolic murmur ABDOMEN: Soft, nontender EXTREMITIES : No LE swelling/tenderness, no other conspicuous deformities noted NEUROLOGIC : Demented , no facial asymmetry, gait and stance not assessed Principal Diagnosis Right lower lobe pneumonia Acute hypoxemic respiratory failure Advanced dementia Chronic Atrial Fibrillation Chronic diastolic heart failure Discharge Exam Constitutional + cachectic and + altered mental status Eyes PERRL, conjunctivae normal, anicteric sclerae ENMT external ear and nose normal, oropharynx normal Neck trachea midline, no thyromegaly Respiratory normal respiratory effort, lungs clear to auscultation Cardiovascular Rate/Rhythm: + irregularly irregular Vessels: no JVD Extremities: no pedal edema S1 S2 Gastrointestinal (Abdomen) normal bowel sounds, soft, nontender, no hepatosplenomegaly Neurologic AOx0, Alert,awake, inappropriate responds, does not follow commands Discharge Data Allergies Allergy/AdvReac Type Severity Reaction Status Date / Time walnut Allergy Severe GI SYMPTOMS Verified 09/03/18 06:12 Penicillins Allergy Intermediate RASH Verified 12/03/18 19:30 potato Allergy Unknown GI SYMPTOMS Verified 12/03/18 19:30 Consultations 12/03/18 20:37 ED Decision to Admit Stat Ordered Studies 12/03/18 21:14 CT angio chest PE protocol Urgent 1. Motion degraded exam. No central pulmonary emboli identified. 3. Patchy consolidative opacities of the right lower lobe, most pronounced within the basal segments suggestive of pneumonia or aspiration pneumonitis. Correlate clinically. 4. Emphysema. 5. Bilateral bronchial wall thickening with tracheobronchial secretions. 6. Unchanged bilateral pulmonary nodules as above. Hospital Course (1) Right lower lobe pneumonia: (2) Acute hypoxemic respiratory failure: Acute hypoxemic respiratory failure due to Right lower lobe pneumonia Possible Sepsis Likely aspiration Blood cultures has been negative so far CT chest showed Patchy consolidative opacities of the right lower lobe, most pronounced within the basal segments suggestive of pneumonia or aspiration pneumonitis. Sputum culture difficult to collect due to mental status. Nasal MRSA: negative Leukocytosis has resolved. Completed iv cefepime and clindamycin Due to mental status, it was tough to change to oral meds as patient intermittently agrees to oral intake. Hence patient was hospitalized till antibiotics were completed Still requiring oxygen. Continue wean oxygen as tolerated. Requires oxygen at nighttime per previous report from Continue nebs, flutter valve, hypertonic saline nebs, chest physiotherapy/vest therapy Aspiration precautions. Needs aid with feeding. Soft easy to bite diet (3) Atrial fibrillation: Currently rate controlled No anticoagulation due to history of subdural hemorrhage Continue digoxin (4) Chronic diastolic heart failure: Currently euvolemic Hemodynamically stable Echo from 2017 noted. EF 55-59%, severe AV calcification with suspected stenosis (5) Dementia: Advanced dementia Continue assistance with all ADLs Continue home meds (6) Hospice care patient: Will continue hospice care on discharge (7) Hypertension: Currently normotensive Not on any antihypertensive Continue to monitor BP (8) H/O subdural hemorrhage: Avoid anticoagulation for DVT ppx SCD for DVT ppx Disposition :Plan for discharge tomorrow PCP follow-up with Dr. Serena Soni Total Time Total Time Spent Total Time Spent (In Minutes): 25 Total Time Includes: Examination of the Patient, Discharge Planning, Medication Reconciliation and Other (Communication with ) Discharge Plan Discharge Items Patient Disposition: Hospice - Medical Facility Reason For Visit: RESP FAILURE Discharge Diagnosis: Right lower lobe pneumonia Acute hypoxemic respiratory failure Advanced dementia Chronic Atrial Fibrillation Chronic diastolic heart failure Condition on Discharge: Fair Activity: Resume your previous activity Non-emergency contact: Primary Care Provider Call non-emergency contact if: you have any medication questions Follow-up/Referrals: Mirkam, [Primary Care Provider] - Diet: Heart Healthy Addtl Attending Provider Instructions: Mr Harp was brought to the hospital for low oxygen levels noted at nursing facility. He has advanced dementia, history of subdural hemorrhage, chronic diastolic heart failure, atrial fibrillation among other medical problems. Patient was brought in from [facility] where he has been on hospice. On evaluation, he was found to have right lower lobe pneumonia. He has completed 1 week of antibiotics. He has been requiring oxygen. He is at risk of aspiration and at risk of recurrent pneumonia. It is very important to continue aspiration precautions at facility. Please provide all assistance required as he needs help with all activities of daily living. Please continue all routine medications as prescribed. Pending Studies at Discharge: No Stand-Alone Forms: [facility] Sk[facility] Items Patient informed of condition?: No (Advanced dementia. informed) DNR: Yes Discharge Level of Care: Skilled Communicable Disease: No Discharge Prognosis: Stable Lines: None Urinary Catheter: No Medications and DC Order Prescriptions: Continued buspirone 5 mg tablet 5 mg PO BID RF: 0 buspirone 5 mg tablet 5 mg PO .Q24HRS PRN (Reason: Anxiety) RF: 0 venlafaxine [Effexor XR] 37.5 mg capsule,extended release 24hr 37.5 mg PO QAM RF: 0 acetaminophen [Tylenol] 325 mg Tablet 650 mg PO Q4 PRN (Reason: Pain) RF: 0 venlafaxine [Effexor XR] 75 mg capsule,extended release 24hr 75 mg PO QAM RF: 0 albuterol sulfate 2.5 mg /3 mL (0.083 %) solution for nebulization 2.5 mg inhalation Q4 PRN (Reason: Wheezing) RF: 0 donepezil [Aricept] 10 mg tablet 10 mg PO DAILY RF: 0 dextromethorphan-guaifenesin [Tussin DM] 10-100 mg/5 mL Liquid 10 ml PO Q4 PRN (Reason: Cough) RF: 0 diphenoxylate-atropine [Lomotil] 2.5-0.025 mg Tablet 2 tab PO Q6H PRN (Reason: Diarrhea) RF: 0 simvastatin [Zocor] 20 mg tablet 20 mg PO QPM RF: 0 montelukast [Singulair] 10 mg tablet 10 mg PO HS RF: 0 digoxin [Lanoxin] 125 mcg (0.125 mg) tablet 125 mcg PO DAILY RF: 0 furosemide [Lasix] 20 mg tablet 20 mg PO DAILY RF: 0 mirtazapine [Remeron] 15 mg tablet 15 mg PO HS RF: 0 memantine [Namenda] 10 mg tablet 10 mg PO DAILY RF: 0 melatonin 3 mg tablet,disintegrating 3 mg PO HS RF: 0 Boost 0.04 gram- 1 kcal/mL Liquid 1 ea PO BID RF: 0 Discontinued lorazepam [Ativan] 0.5 mg tablet 0.5 mg PO BID RF: 0 Discharge Orders: Discharge Order (Routine); Ordered 12/11/18 Ordered By: Cristy Gallegos Admission Data Admit Date/Time: 12/03/18 21:18 Attending Provider: Cristy Gallegos I. Admit Provider: Kaleb Aguiar Primary Care Provider: Katiuska Ortega Providers: Kaleb Aguiar ; Shelton Fuchs Other Interventions: Discharge Summary Assessment (RN) Last Done: 12/11/18 14:43 DC Date/Time DO NOT enter until pt leaves facility: 12/11/18 17:45
[2018-12-11] MEDS: DIGOXIN 0.125 MG TAB PO SCH (15:46)
== END 2018-12-11 17:45 | disposition hospice, home (50) | DRG 871 ==
LOC: ED 18:03 → 2N 21:18 → SUATTDRO 21:18 → 2N 22:50